=== PATIENT | male | born 1975 | race Caucasian/White ===

== ENCOUNTER 2019-09-10 16:16 | Inpatient (IN) | payer OTHER ==
[~2019-09-10] VITALS: Ht 177.8 cm; Wt 87.6 kg
[~2019-09-10 16:16] MED LIST: BENZ1TAB70 PO
[2019-09-10 19:20] LABS: BASOPHILS % (AUTO) 0.2 % (0.0-2.0); EOSINOPHILS % (AUTO) 3.7 % (1.0-6.0); HEMATOCRIT 39.4 % (41-53); HEMOGLOBIN 12.9 g/dL (13.5-17.5); LYMPHOCYTES # (AUTO) 2.6 K/uL (1.0-4.8); LYMPHOCYTES % (AUTO) 27.5 % (22.0-44.0); MEAN CORPUSCULAR HGB CONC 32.8 G/dL (31.0-37.0); MEAN CORPUSCULAR VOLUME 88 fL (80-100); MONOCYTES # (AUTO) 1.1 K/uL (0.1-1.0); NEUTROPHILS # (AUTO) 5.3 K/uL (1.8-7.7); NEUTROPHILS % (AUTO) 56.6 % (40.0-70.0); PLATELET COUNT (AUTO) 331 K/uL (150-450); RED BLOOD CELL COUNT(AUTO) 4.46 MIL/uL (4.50-5.90); RED CELL DISTRIBUTION WIDTH 12.8 % (11.5-14.5)
[2019-09-10 19:35] LABS: ANION GAP 11 mmol/L (8-16); CALCIUM, TOTAL 9.4 mg/dL (8.8-10.5); CARBON DIOXIDE 26 mmol/L (22-29); CHLORIDE 101 mmol/L (98-107); CREATININE 0.78 mg/dL (0.60-1.30); GLOMERULAR FILTR. RATE CALC > 60 mL/min (>60); GLUCOSE,RANDOM 134 mg/dL (70-110); POTASSIUM 4.1 mmol/L (3.5-5.1); SODIUM SERUM 138 mmol/L (136-145); UREA NITROGEN, BLOOD 17 mg/dL (7-18)
[2019-09-10 19:41] LABS: LACTIC ACID 0.9 mmol/L (0.4-2.0)
[2019-09-10 19:48] LABS: ALANINE AMINOTRANSFERASE 30 U/L (12-78); ALKALINE PHOSPHATASE 102 U/L (46-116); ASPARTATE AMINOTRANSFERASE 19 U/L (15-37); BILIRUBIN,TOTAL 0.4 mg/dL (0.1-1.0); LIPASE 90 U/L (73-393); TOTAL PROTEIN, SERUM 8.7 g/dL (6.4-8.2)
[2019-09-10 19:50] LABS: B-TYPE NATRIURETIC PEPTIDE < 5 pg/mL (0-100)
[2019-09-10] MEDS ORDERED: VANCOMYCIN HCL 1.5 GM in DEXTROSE 5%-WATER 250 ML IV ONE (21:00)
[2019-09-10] MEDS ORDERED: DEXTROSE 50%-WATER 25 GM/50 ML SYRINGE IVP PRN (21:00)
[2019-09-10] MEDS ORDERED: SODIUM CHLORIDE 0.9% 250 ML IV ONE (22:07)
[2019-09-10 22:12] VITALS: BP 136/85
[2019-09-10] MEDS: DOCUSATE SODIUM 100 MG CAPSULE PO SCH (23:55)
[2019-09-11] MEDS: ACETAMINOPHEN 325 MG TABLET PO PRN ×2 (00:20→12:46)
[2019-09-11] MEDS: HEPARIN SODIUM,PORCINE 5,000 UNITS/ML VIAL SQ SCH ×3 (00:21→16:03)
[2019-09-11 03:27] VITALS: BP 116/80
[2019-09-11] MEDS: VANCOMYCIN HCL 1.25 GM in DEXTROSE 5%-WATER 250 ML IV SCH ×2 (06:00→16:02)
[2019-09-11] MEDS: INSULIN LISPRO 100 UNITS/ML SQ PRN ×4 (06:00→20:17)
[2019-09-11 06:05] LABS: GLUCOMETER DEV NAME(LOC) 6S.1; GLUCOSE,POINT OF CARE 182 MG/DL (70-110)
[2019-09-11 07:18] LABS: APPEARANCE,URINE CLEAR (CLEAR); BILIRUBIN,URINE NEGATIVE (NEGATIVE); GLUCOSE, URINE (UA) NEGATIVE (NEGATIVE); KETONES,URINE NEGATIVE (NEGATIVE); LEUKOCYTE ESTERASE ,URINE NEGATIVE (NEGATIVE); NITRATE,URINE NEGATIVE (NEGATIVE); OCCULT BLOOD,URINE NEGATIVE (NEGATIVE); PH,URINE 6.5 (5.0-8.0); PROTEIN,URINE NEGATIVE (NEGATIVE); UROBILINOGEN,URINE 0.2 mg/dL (<=1.0)
[2019-09-11 07:29] LABS: BACTERIA,URINE None Seen /HPF (None Seen); RBC,URINE None Seen /HPF (0-2); SQUAMOUS EPITHELIAL CELL,UR Rare /LPF (None Seen); WBC,URINE None Seen /HPF (0-5)
[2019-09-11 08:31] LABS: ANION GAP 10 mmol/L (8-16); CALCIUM, TOTAL 8.8 mg/dL (8.8-10.5); CARBON DIOXIDE 27 mmol/L (22-29); CHLORIDE 103 mmol/L (98-107); CREATININE 0.72 mg/dL (0.60-1.30); GLOMERULAR FILTR. RATE CALC > 60 mL/min (>60); GLUCOSE,RANDOM 167 mg/dL (70-110); POTASSIUM 4.1 mmol/L (3.5-5.1); SODIUM SERUM 140 mmol/L (136-145); UREA NITROGEN, BLOOD 14 mg/dL (7-18)
[2019-09-11] MEDS: FAMOTIDINE 20 MG TABLET PO SCH (09:02)
[2019-09-11] MEDS: DOCUSATE SODIUM 100 MG CAPSULE PO SCH ×2 (09:02→20:14)
[2019-09-11] MEDS: ASPIRIN 81 MG CHEWABLE TABLET PO SCH (09:02)
[2019-09-11 09:08] VITALS: BP 130/85
[2019-09-11 11:39] VITALS: BP 121/79
[2019-09-11 17:03] VITALS: BP 111/78
[2019-09-11] MEDS ORDERED: SODIUM CHLORIDE 0.9% 500 ML IV ONE (17:14)
[2019-09-11 18:53] LABS: GLUCOMETER DEV NAME(LOC) 6N.2; GLUCOSE,POINT OF CARE 373 MG/DL (70-110)
[2019-09-11 18:53] LABS: GLUCOMETER DEV NAME(LOC) 6N.2; GLUCOSE,POINT OF CARE 197 MG/DL (70-110)
[2019-09-11 20:12] VITALS: BP 138/87
[2019-09-11 20:26] LABS: GLUCOMETER DEV NAME(LOC) 6S.1; GLUCOSE,POINT OF CARE 246 MG/DL (70-110)
[2019-09-11 23:05] VITALS: BP 128/90
[2019-09-12] MEDS: HEPARIN SODIUM,PORCINE 5,000 UNITS/ML VIAL SQ SCH ×4 (00:13→23:39)
[2019-09-12] MEDS: VANCOMYCIN HCL 1.25 GM in DEXTROSE 5%-WATER 250 ML IV SCH ×4 (00:14→23:39)
[2019-09-12 04:05] VITALS: BP 130/87
[2019-09-12] MEDS: INSULIN LISPRO 100 UNITS/ML SQ PRN ×4 (05:34→23:45)
[2019-09-12 05:48] LABS: GLUCOMETER DEV NAME(LOC) 6N.2; GLUCOSE,POINT OF CARE 189 MG/DL (70-110)
[2019-09-12 08:29] LABS: ANION GAP 8 mmol/L (8-16); CALCIUM, TOTAL 9.2 mg/dL (8.8-10.5); CARBON DIOXIDE 28 mmol/L (22-29); CHLORIDE 101 mmol/L (98-107); CREATININE 0.66 mg/dL (0.60-1.30); GLOMERULAR FILTR. RATE CALC > 60 mL/min (>60); GLUCOSE,RANDOM 205 mg/dL (70-110); POTASSIUM 4.1 mmol/L (3.5-5.1); SODIUM SERUM 137 mmol/L (136-145); UREA NITROGEN, BLOOD 13 mg/dL (7-18); VANCOMYCIN,RANDOM 11.7 mcg/mL (25.0-50.0)
[2019-09-12] MEDS: ASPIRIN 81 MG CHEWABLE TABLET PO SCH (08:35)
[2019-09-12] MEDS: MULTIVITAMINS WITH MINERALS, THERAPEUTIC TABLET PO SCH (08:35)
[2019-09-12] MEDS: DOCUSATE SODIUM 100 MG CAPSULE PO SCH ×2 (08:35→20:09)
[2019-09-12] MEDS: OxyCODONE HCL/ACETAMINOPHEN 5-325 MG TABLET PO PRN ×5 (08:35→23:39)
[2019-09-12] MEDS: FAMOTIDINE 20 MG TABLET PO SCH (08:35)
[2019-09-12 09:02] VITALS: BP 128/87
[2019-09-12 12:46] VITALS: BP 123/88
[2019-09-12 15:35] VITALS: BP 134/91
[2019-09-12 17:12] LABS: GLUCOMETER DEV NAME(LOC) 6N.2; GLUCOSE,POINT OF CARE 335 MG/DL (70-110)
[2019-09-12] MEDS: GlipiZIDE 5 MG TABLET PO SCH (17:13)
[2019-09-12 19:33] LABS: GLUCOMETER DEV NAME(LOC) 6S.1; GLUCOSE,POINT OF CARE 270 MG/DL (70-110)
[2019-09-12 20:50] VITALS: BP 136/94
[2019-09-13] LABS: GLUCOMETER DEV NAME(LOC) 6N.2; GLUCOSE,POINT OF CARE 192 MG/DL (70-110)
[2019-09-13 00:30] VITALS: BP 123/91
[2019-09-13] MEDS: OxyCODONE HCL/ACETAMINOPHEN 5-325 MG TABLET PO PRN ×3 (04:54→18:56)
[2019-09-13] MEDS: INSULIN LISPRO 100 UNITS/ML SQ PRN ×3 (05:06→17:21)
[2019-09-13] MEDS: GlipiZIDE 5 MG TABLET PO SCH (06:30)
[2019-09-13 06:32] LABS: GLUCOMETER DEV NAME(LOC) 6S.1; GLUCOSE,POINT OF CARE 177 MG/DL (70-110)
[2019-09-13 07:18] LABS: ANION GAP 6 mmol/L (8-16); CALCIUM, TOTAL 9.7 mg/dL (8.8-10.5); CARBON DIOXIDE 32 mmol/L (22-29); CHLORIDE 103 mmol/L (98-107); CREATININE 0.55 mg/dL (0.60-1.30); GLOMERULAR FILTR. RATE CALC > 60 mL/min (>60); GLUCOSE,RANDOM 170 mg/dL (70-110); POTASSIUM 4.5 mmol/L (3.5-5.1); SODIUM SERUM 141 mmol/L (136-145); UREA NITROGEN, BLOOD 12 mg/dL (7-18)
[2019-09-13] MEDS: MULTIVITAMINS WITH MINERALS, THERAPEUTIC TABLET PO SCH (08:12)
[2019-09-13] MEDS: FAMOTIDINE 20 MG TABLET PO SCH (08:12)
[2019-09-13] MEDS: DOCUSATE SODIUM 100 MG CAPSULE PO SCH (08:12)
[2019-09-13] MEDS: ASPIRIN 81 MG CHEWABLE TABLET PO SCH (08:12)
[2019-09-13] MEDS: VANCOMYCIN HCL 1.25 GM in DEXTROSE 5%-WATER 250 ML IV SCH ×2 (08:13→15:44)
[2019-09-13 08:22] LABS: BASOPHILS % (AUTO) 0.7 % (0.0-2.0); EOSINOPHILS % (AUTO) 6.2 % (1.0-6.0); HEMATOCRIT 40.5 % (41-53); HEMOGLOBIN 13.8 g/dL (13.5-17.5); LYMPHOCYTES # (AUTO) 1.3 K/uL (1.0-4.8); LYMPHOCYTES % (AUTO) 30.2 % (22.0-44.0); MEAN CORPUSCULAR HEMOGLOBIN 30.2 pg (26.0-34.0); MEAN CORPUSCULAR HGB CONC 34.1 G/dL (31.0-37.0); MEAN CORPUSCULAR VOLUME 89 fL (80-100); MONOCYTES # (AUTO) 0.6 K/uL (0.1-1.0); MONOCYTES % (AUTO) 13.4 % (2.0-9.0); NEUTROPHILS # (AUTO) 2.2 K/uL (1.8-7.7); NEUTROPHILS % (AUTO) 49.5 % (40.0-70.0); PLATELET COUNT (AUTO) 302 K/uL (150-450); RED BLOOD CELL COUNT(AUTO) 4.57 MIL/uL (4.50-5.90); RED CELL DISTRIBUTION WIDTH 12.8 % (11.5-14.5)
[2019-09-13 08:29] VITALS: BP 113/60
[2019-09-13] MEDS: HEPARIN SODIUM,PORCINE 5,000 UNITS/ML VIAL SQ SCH ×2 (08:50→15:44)
[2019-09-13 11:38] VITALS: BP 140/95
[2019-09-13 12:16] LABS: GLUCOMETER DEV NAME(LOC) AHU.; GLUCOSE,POINT OF CARE 192 MG/DL (70-110)
[2019-09-13 15:37] VITALS: BP 133/73
[2019-09-13] MEDS ORDERED: GlipiZIDE 5 MG TABLET PO SCH (17:30)
[2019-09-13 17:56] LABS: GLUCOMETER DEV NAME(LOC) 6S.1; GLUCOSE,POINT OF CARE 337 MG/DL (70-110)
[2019-09-13 17:56] LABS: GLUCOMETER DEV NAME(LOC) 6S.1; GLUCOSE,POINT OF CARE 279 MG/DL (70-110)
== END 2019-09-13 20:15 | DRG 813 ==
LOC: EMS 16:17 → 6N 20:52
PROVIDERS: ADMIT Internal Medicine; ATTEND Internal Medicine
DX: T81.9XXA Unspecified complication of procedure, initial encounter (principal); E11.621 Type 2 diabetes mellitus with foot ulcer; F03.90 Unspecified dementia, unspecified severity, without behavioral disturbance, psychotic disturbance, mood disturbance, and anxiety; L03.116 Cellulitis of left lower limb; Y83.8 Other surgical procedures as the cause of abnormal reaction of the patient, or of later complication, without mention of misadventure at the time of the procedure; Y92.89 Other specified places as the place of occurrence of the external cause; Z59.0 Homelessness; L97.529 Non-pressure chronic ulcer of other part of left foot with unspecified severity; Z20.828 Contact with and (suspected) exposure to other viral communicable diseases
CPT/HCPCS: 83605; 86140; 87040; 87081; 93005; G0480; J1644; J3370; J7040; J7050; J7060

== ENCOUNTER 2019-10-01 21:18 | Emergency (ER) | payer OTHER ==
[2019-10-01] MEDS ORDERED: INSLAN SQ (22:31)
[2019-10-01] MEDS ORDERED: INSU100V SQ (22:31)
[2019-10-01] MEDS ORDERED: VANC250C13 IV (22:31)
[2019-10-01 23:03] LABS: BASOPHILS % (AUTO) 0.6 % (0.0-2.0); EOSINOPHILS % (AUTO) 4.4 % (1.0-6.0); HEMATOCRIT 39.2 % (41-53); HEMOGLOBIN 13.1 g/dL (13.5-17.5); LYMPHOCYTES # (AUTO) 2.3 K/uL (1.0-4.8); LYMPHOCYTES % (AUTO) 37.5 % (22.0-44.0); MEAN CORPUSCULAR HEMOGLOBIN 29.3 pg (26.0-34.0); MEAN CORPUSCULAR HGB CONC 33.4 G/dL (31.0-37.0); MEAN CORPUSCULAR VOLUME 88 fL (80-100); MONOCYTES # (AUTO) 0.8 K/uL (0.1-1.0); MONOCYTES % (AUTO) 12.4 % (2.0-9.0); NEUTROPHILS # (AUTO) 2.8 K/uL (1.8-7.7); NEUTROPHILS % (AUTO) 45.1 % (40.0-70.0); PLATELET COUNT (AUTO) 294 K/uL (150-450); RED BLOOD CELL COUNT(AUTO) 4.47 MIL/uL (4.50-5.90); RED CELL DISTRIBUTION WIDTH 13.4 % (11.5-14.5)
[2019-10-01 23:05] LABS: ANION GAP 8 mmol/L (8-16); CALCIUM, TOTAL 8.9 mg/dL (8.8-10.5); CARBON DIOXIDE 28 mmol/L (22-29); CHLORIDE 100 mmol/L (98-107); CREATININE 0.75 mg/dL (0.60-1.30); GLOMERULAR FILTR. RATE CALC > 60 mL/min (>60); GLUCOSE,RANDOM 229 mg/dL (70-110); POTASSIUM 3.8 mmol/L (3.5-5.1); SODIUM SERUM 136 mmol/L (136-145); UREA NITROGEN, BLOOD 15 mg/dL (7-18)
[2019-10-01 23:11] LABS: ALANINE AMINOTRANSFERASE 47 U/L (12-78); ALBUMIN 3.6 g/dL (3.4-5.0); ALKALINE PHOSPHATASE 114 U/L (46-116); ASPARTATE AMINOTRANSFERASE 19 U/L (15-37); BILIRUBIN,TOTAL 0.3 mg/dL (0.1-1.0); TOTAL PROTEIN, SERUM 7.8 g/dL (6.4-8.2)
[2019-10-01 23:25] LABS: GLUCOSE,POINT OF CARE 235 MG/DL (70-110)
[2019-10-02 01:34] LABS: APPEARANCE,URINE CLEAR (CLEAR); BILIRUBIN,URINE NEGATIVE (NEGATIVE); GLUCOSE, URINE (UA) 100 mg/dL (NEGATIVE); KETONES,URINE NEGATIVE (NEGATIVE); LEUKOCYTE ESTERASE ,URINE NEGATIVE (NEGATIVE); NITRATE,URINE NEGATIVE (NEGATIVE); OCCULT BLOOD,URINE NEGATIVE (NEGATIVE); PH,URINE 6.5 (5.0-8.0); PROTEIN,URINE NEGATIVE (NEGATIVE); UROBILINOGEN,URINE 0.2 mg/dL (<=1.0)
[2019-10-02 01:41] LABS: BACTERIA,URINE None Seen /HPF (None Seen); RBC,URINE None Seen /HPF (0-2); SQUAMOUS EPITHELIAL CELL,UR Few /LPF (None Seen); WBC,URINE None Seen /HPF (0-5)
[2019-10-02 01:45] LABS: AMPHET/METH SCREEN,URINE NEGATIVE (NEGATIVE); BARBITURATE SCREEN, URINE NEGATIVE (NEGATIVE); BENZODIAZEPINES SCREEN,URINE NEGATIVE (NEGATIVE); CANNABINOID SCREEN,URINE NEGATIVE (NEGATIVE); COCAINE SCREEN,URINE NEGATIVE (NEGATIVE); METHADONE SCREEN, URINE NEGATIVE (NEGATIVE); OPIATE SCREEN,URINE NEGATIVE (NEGATIVE)
[2019-10-02 01:46] LABS: PHENCYCLIDINE SCREEN,URINE NEGATIVE (NEGATIVE)
[2019-10-02 05:39] VITALS: BP 128/76
== END 2019-10-02 06:37 | disposition home or self-care (01) ==
LOC: EMS 21:20
DX: N44.2 Benign cyst of testis (principal); N50.811 Right testicular pain; F69 Unspecified disorder of adult personality and behavior; E11.9 Type 2 diabetes mellitus without complications; Z79.4 Long term (current) use of insulin
CPT/HCPCS: 36415; 76870; 80053; 80307; 81001; 82962; 85025; 99284; G0480

== ENCOUNTER 2021-08-22 08:33 | Emergency (ER) | payer OTHER ==
[~2021-08-22] VITALS: Ht 175.3 cm; Wt 72.7 kg
[~2021-08-22 08:33] MED LIST changes: +INSLAN SQ; +INSU100V SQ; +VANC250C13 IV
[2021-08-22 09:09] VITALS: BP 104/64
[2021-08-22 11:09] LABS: APPEARANCE,URINE CLEAR (CLEAR); BILIRUBIN,URINE NEGATIVE (NEGATIVE); GLUCOSE, URINE (UA) 150-200 mg/dL (NEGATIVE); KETONES,URINE NEGATIVE (NEGATIVE); LEUKOCYTE ESTERASE ,URINE NEGATIVE (NEGATIVE); NITRATE,URINE NEGATIVE (NEGATIVE); OCCULT BLOOD,URINE NEGATIVE (NEGATIVE); PROTEIN,URINE NEGATIVE (NEGATIVE); SPECIFIC GRAVITIY, URINE 1.012 (1.003-1.030); UROBILINOGEN,URINE <=1.0 mg/dL (<=1.0)
[2021-08-22 11:11] LABS: BACTERIA,URINE None Seen /HPF (None Seen); RBC,URINE None Seen /HPF (0-2); WBC,URINE 0-2 /HPF (0-5)
[2021-08-22] MEDS ORDERED: IBUP-2070 PO (11:52)
[2021-08-22] MEDS ORDERED: ACET-66 PO (11:52)
== END 2021-08-22 11:52 | disposition home or self-care (01) ==
LOC: EMS 08:33
DX: N50.812 Left testicular pain (principal); E11.9 Type 2 diabetes mellitus without complications; M86.9 Osteomyelitis, unspecified; R51.9 Headache, unspecified; Z86.59 Personal history of other mental and behavioral disorders; Z86.19 Personal history of other infectious and parasitic diseases; Z89.422 Acquired absence of other left toe(s)
CPT/HCPCS: 76870; 81001; 99284; Z7502

== ENCOUNTER 2021-10-17 11:56 | Emergency (ER) | payer OTHER ==
[~2021-10-17] VITALS: Ht 180.3 cm; Wt 95.5 kg
[~2021-10-17 11:56] MED LIST changes: +ACET-66 PO; +IBUP-2070 PO; -VANC250C13 IV
[2021-10-17] MEDS ORDERED: DOXY-354 PO (15:03)
[2021-10-17 15:09] VITALS: BP 118/71
== END 2021-10-17 15:10 | disposition home or self-care (01) ==
LOC: EMS 11:58
DX: L02.413 Cutaneous abscess of right upper limb (principal); E11.9 Type 2 diabetes mellitus without complications; Z79.899 Other long term (current) drug therapy
CPT/HCPCS: 99283

== ENCOUNTER 2021-10-19 11:43 | Emergency (ER) | payer OTHER ==
[~2021-10-19] VITALS: Ht 175.3 cm; Wt 72.0 kg
[~2021-10-19 11:43] MED LIST changes: +DOXY-354 PO
[2021-10-19 12:02] VITALS: BP 98/60
[2021-10-19] MEDS ORDERED: DiphenhydrAMINE HCL 25 MG CAPSULE PO ONE (12:45)
[2021-10-19] MEDS ORDERED: ACETAMINOPHEN 325 MG TABLET PO ONE (12:45)
== END 2021-10-19 13:28 | disposition home or self-care (01) ==
LOC: EMS 11:44
DX: G89.29 Other chronic pain (principal); M25.562 Pain in left knee; L29.9 Pruritus, unspecified; E11.9 Type 2 diabetes mellitus without complications; Z79.899 Other long term (current) drug therapy; Z79.4 Long term (current) use of insulin
CPT/HCPCS: 99283

== ENCOUNTER 2021-10-24 07:46 | Emergency (ER) | payer OTHER ==
[~2021-10-24] VITALS: Ht 167.6 cm; Wt 100.0 kg
[2021-10-24] MEDS ORDERED: BENZTROPINE MESYLATE 1 MG/ML 2 ML VIAL IM ONE (09:45)
[2021-10-24] MEDS ORDERED: DiphenhydrAMINE HCL 25 MG CAPSULE PO ONE (09:45)
[2021-10-24 10:20] VITALS: BP 118/77
[2021-10-24] MEDS ORDERED: DIPH25TA51 PO (10:46)
== END 2021-10-24 10:56 | disposition home or self-care (01) ==
LOC: EMS 07:47
DX: G24.9 Dystonia, unspecified (principal); E11.9 Type 2 diabetes mellitus without complications; F20.9 Schizophrenia, unspecified; Z87.39 Personal history of other diseases of the musculoskeletal system and connective tissue; Z86.19 Personal history of other infectious and parasitic diseases; Z89.422 Acquired absence of other left toe(s); Z91.09 Other allergy status, other than to drugs and biological substances
CPT/HCPCS: 99283; 96372; J0515

== ENCOUNTER 2021-10-26 13:16 | Emergency (ER) | payer OTHER ==
[~2021-10-26] VITALS: Ht 177.8 cm; Wt 79.5 kg
[~2021-10-26 13:16] MED LIST changes: +DIPH25TA51 PO
[2021-10-26] MEDS ORDERED: ATOR40TA71 PO (14:03)
[2021-10-26] MEDS ORDERED: GLIP5TAB11 PO (14:03)
[2021-10-26] MEDS ORDERED: ASPI-1444 PO (14:03)
[2021-10-26] MEDS ORDERED: TAMS-13 PO (14:03)
[2021-10-26] MEDS ORDERED: METF-446 PO (14:03)
[2021-10-26] MEDS ORDERED: FURO20TA4 PO (14:03)
[2021-10-26] MEDS ORDERED: AMLO10TA55 PO (14:03)
[2021-10-26] MEDS ORDERED: METO25 PO (14:03)
[2021-10-26] MEDS ORDERED: FERR-89 PO (14:03)
[2021-10-26] MEDS ORDERED: RISP0.5T39 PO (14:03)
[2021-10-26] MEDS ORDERED: APIX5TAB PO (14:03)
[2021-10-26] MEDS ORDERED: LISI10TA24 PO (14:03)
[2021-10-26] MEDS ORDERED: BENZTROPINE MESYLATE 1 MG TABLET PO ONE (14:15)
[2021-10-26] MEDS ORDERED: DiphenhydrAMINE HCL 25 MG CAPSULE PO ONE (14:15)
[2021-10-26 15:27] VITALS: BP 114/65
== END 2021-10-26 18:43 | disposition home or self-care (01) ==
LOC: EMS 13:16
DX: G24.9 Dystonia, unspecified (principal); M79.18 Myalgia, other site; R45.1 Restlessness and agitation; E11.9 Type 2 diabetes mellitus without complications; G89.29 Other chronic pain; Z86.59 Personal history of other mental and behavioral disorders; Z86.19 Personal history of other infectious and parasitic diseases; Z87.39 Personal history of other diseases of the musculoskeletal system and connective tissue; Z89.422 Acquired absence of other left toe(s); Z91.09 Other allergy status, other than to drugs and biological substances
CPT/HCPCS: 99283

== ENCOUNTER 2021-11-02 08:15 | Emergency (ER) | payer OTHER ==
[~2021-11-02] VITALS: Ht 177.8 cm; Wt 79.5 kg
[~2021-11-02 08:15] MED LIST changes: +AMLO10TA55 PO; +APIX5TAB PO; +ASPI-1444 PO; +ATOR40TA71 PO; -BENZ1TAB70 PO; +FERR-89 PO; +FURO20TA4 PO; +GLIP5TAB11 PO; +LISI10TA24 PO; +METF-446 PO; +METO25 PO; +RISP0.5T39 PO; +TAMS-13 PO
[2021-11-02] MEDS ORDERED: INSLAN SQ (08:39)
[2021-11-02 08:56] LABS: BASOPHILS % (AUTO) 0.2 % (0.0-2.0); EOSINOPHILS % (AUTO) 2.9 % (1.0-6.0); HEMATOCRIT 33.6 % (41-53); HEMOGLOBIN 11.3 g/dL (13.5-17.5); LYMPHOCYTES # (AUTO) 1.2 K/uL (1.0-4.8); LYMPHOCYTES % (AUTO) 15.5 % (22.0-44.0); MEAN CORPUSCULAR HEMOGLOBIN 28.4 pg (26.0-34.0); MEAN CORPUSCULAR HGB CONC 33.6 G/dL (31.0-37.0); MEAN CORPUSCULAR VOLUME 85 fL (80-100); MONOCYTES # (AUTO) 0.6 K/uL (0.1-1.0); MONOCYTES % (AUTO) 7.2 % (2.0-9.0); NEUTROPHILS # (AUTO) 5.8 K/uL (1.8-7.7); NEUTROPHILS % (AUTO) 74.2 % (40.0-70.0); PLATELET COUNT (AUTO) 345 K/uL (150-450); RED BLOOD CELL COUNT(AUTO) 3.97 MIL/uL (4.50-5.90); RED CELL DISTRIBUTION WIDTH 17.5 % (11.5-14.5)
[2021-11-02] MEDS ORDERED: SODIUM CHLORIDE 0.9% 1,000 ML IV ONE (09:00)
[2021-11-02] MEDS ORDERED: ACETAMINOPHEN 500 MG TABLET PO ONE (09:00)
[2021-11-02 09:07] LABS: ANION GAP 11 mmol/L (8-16); CALCIUM, TOTAL 8.8 mg/dL (8.8-10.5); CARBON DIOXIDE 23 mmol/L (22-29); CHLORIDE 100 mmol/L (98-107); CREATININE 1.09 mg/dL (0.60-1.30); GLUCOSE,RANDOM 386 mg/dL (70-110); POTASSIUM 4.5 mmol/L (3.5-5.1); SODIUM SERUM 134 mmol/L (136-145); UREA NITROGEN, BLOOD 10 mg/dL (7-18)
[2021-11-02 09:08] LABS: GLOMERULAR FILTR. RATE CALC > 60 mL/min (>60)
[2021-11-02 09:13] LABS: ALANINE AMINOTRANSFERASE 38 U/L (12-78); ALBUMIN 3.7 g/dL (3.4-5.0); ALKALINE PHOSPHATASE 117 U/L (46-116); ASPARTATE AMINOTRANSFERASE 18 U/L (15-37); BILIRUBIN,TOTAL 0.3 mg/dL (0.1-1.0); PHOSPHORUS 3.2 mg/dL (2.5-4.9); TOTAL PROTEIN, SERUM 7.2 g/dL (6.4-8.2)
[2021-11-02] MEDS ORDERED: MAGNESIUM SULFATE 2 GM/WATER 50 ML IV ONE (09:30)
[2021-11-02] MEDS ORDERED: DOXYCYCLINE HYCLATE 100 MG TABLET PO ONE (09:30)
[2021-11-02] MEDS ORDERED: BACITRACIN 28 GM OINTMENT TP ONE (09:30)
[2021-11-02] MEDS ORDERED: DOXY-354 PO (10:28)
[2021-11-02 11:23] VITALS: BP 127/82
[2021-11-02 11:36] LABS: GLUCOSE,POINT OF CARE 228 MG/DL (70-110)
== END 2021-11-02 11:46 | disposition home or self-care (01) ==
LOC: EMS 08:16
DX: E83.42 Hypomagnesemia (principal); E11.65 Type 2 diabetes mellitus with hyperglycemia; R53.1 Weakness; L97.521 Non-pressure chronic ulcer of other part of left foot limited to breakdown of skin; Z88.8 Allergy status to other drugs, medicaments and biological substances; Z79.899 Other long term (current) drug therapy; Z79.4 Long term (current) use of insulin
CPT/HCPCS: 99285; 96365; 80053; 82962; 83735; 84100; 85025; 36415; J7030; J3475

== ENCOUNTER 2021-11-10 12:54 | Emergency (ER) | payer OTHER ==
[~2021-11-10] VITALS: Ht 177.8 cm; Wt 82.0 kg
[~2021-11-10 12:54] MED LIST changes: -ACET-66 PO; -DIPH25TA51 PO; -IBUP-2070 PO; -INSU100V SQ
[2021-11-10 13:06] VITALS: BP 147/90
[2021-11-13] MEDS ORDERED: TAMS-13 PO (13:26)
== END 2021-11-10 16:28 | disposition left against medical advice (07) ==
LOC: EMS 12:56
DX: Z53.21 Procedure and treatment not carried out due to patient leaving prior to being seen by health care provider (principal)
CPT/HCPCS: 82962

== ENCOUNTER 2021-11-18 07:17 | Emergency (ER) | payer OTHER ==
[~2021-11-18] VITALS: Ht 177.8 cm; Wt 91.9 kg
[~2021-11-18 07:17] MED LIST changes: -LISI10TA24 PO; -METO25 PO
[2021-11-18] MEDS ORDERED: HYDROGEN PEROXIDE 118 ML SOLUTION TP ONE (09:30)
[2021-11-18] MEDS ORDERED: BACITRACIN 28 GM OINTMENT TP ONE (09:30)
[2021-11-18] MEDS ORDERED: BACI28OI29 TP (09:40)
[2021-11-18 10:00] VITALS: BP 122/81
== END 2021-11-18 10:03 | disposition home or self-care (01) ==
LOC: EMS 07:17
DX: S91.302A Unspecified open wound, left foot, initial encounter (principal); E11.9 Type 2 diabetes mellitus without complications; Z86.19 Personal history of other infectious and parasitic diseases; Z86.59 Personal history of other mental and behavioral disorders; Z87.39 Personal history of other diseases of the musculoskeletal system and connective tissue; Z89.422 Acquired absence of other left toe(s); Z91.018 Allergy to other foods; X58.XXXA Exposure to other specified factors, initial encounter; Y93.89 Activity, other specified; Y92.89 Other specified places as the place of occurrence of the external cause; Y99.8 Other external cause status
CPT/HCPCS: 99282; Z7502; Z7610

== ENCOUNTER 2022-02-07 13:29 | Emergency (ER) | payer OTHER ==
[~2022-02-07] VITALS: Ht 177.8 cm; Wt 84.1 kg
[~2022-02-07 13:29] MED LIST changes: +BACI28OI29 TP; -DOXY-354 PO
[2022-02-07] MEDS ORDERED: SODIUM CHLORIDE 0.9% 1,000 ML IV ONE ×2 (14:30→14:45)
[2022-02-07] MEDS ORDERED: METOCLOPRAMIDE HCL 5 MG/ML 2 ML VIAL IVP ONE (14:45)
[2022-02-07] MEDS ORDERED: DiphenhydrAMINE HCL 50 MG/ML VIAL IVP ONE (14:45)
[2022-02-07 14:52] LABS: BASOPHILS % (AUTO) 1.2 % (0.0-2.0); HEMATOCRIT 37.6 % (41-53); HEMOGLOBIN 12.7 g/dL (13.5-17.5); LYMPHOCYTES # (AUTO) 1.7 K/uL (1.0-4.8); LYMPHOCYTES % (AUTO) 31.3 % (22.0-44.0); MEAN CORPUSCULAR HEMOGLOBIN 29.8 pg (26.0-34.0); MEAN CORPUSCULAR HGB CONC 33.9 G/dL (31.0-37.0); MEAN CORPUSCULAR VOLUME 88 fL (80-100); MONOCYTES # (AUTO) 0.4 K/uL (0.1-1.0); MONOCYTES % (AUTO) 6.9 % (2.0-9.0); NEUTROPHILS # (AUTO) 3.2 K/uL (1.8-7.7); NEUTROPHILS % (AUTO) 56.6 % (40.0-70.0); PLATELET COUNT (AUTO) 324 K/uL (150-450); RED BLOOD CELL COUNT(AUTO) 4.27 MIL/uL (4.50-5.90); RED CELL DISTRIBUTION WIDTH 13.5 % (11.5-14.5)
[2022-02-07 15:09] LABS: ANION GAP 6 mmol/L (8-16); CALCIUM, TOTAL 9.4 mg/dL (8.8-10.5); CARBON DIOXIDE 29 mmol/L (22-29); CHLORIDE 97 mmol/L (98-107); CREATININE 1.03 mg/dL (0.60-1.30); GLUCOSE,RANDOM 250 mg/dL (70-110); POTASSIUM 4.1 mmol/L (3.5-5.1); SODIUM SERUM 132 mmol/L (136-145); UREA NITROGEN, BLOOD 21 mg/dL (7-18)
[2022-02-07 15:11] LABS: GLOMERULAR FILTR. RATE CALC > 60 mL/min (>60)
[2022-02-07 15:16] LABS: ALANINE AMINOTRANSFERASE 41 U/L (12-78); ALKALINE PHOSPHATASE 142 U/L (46-116); ASPARTATE AMINOTRANSFERASE 19 U/L (15-37); BILIRUBIN,TOTAL 0.2 mg/dL (0.1-1.0); TOTAL PROTEIN, SERUM 8.4 g/dL (6.4-8.2)
[2022-02-07 16:26] LABS: ERYTHROCYTE SEDIMENTATION RATE 42 MM/HR (0-15)
[2022-02-07 17:18] VITALS: BP 140/92
== END 2022-02-07 17:23 | disposition home or self-care (01) ==
LOC: EMS 13:30
DX: R51.9 Headache, unspecified (principal); F20.9 Schizophrenia, unspecified; E11.9 Type 2 diabetes mellitus without complications
CPT/HCPCS: 99285; 96374; 70450; 96361; 96375; 80053; 85025; 85651; 36415; J1200; J2765; J7030

== ENCOUNTER 2022-03-02 08:56 | Emergency (ER) | payer OTHER ==
[~2022-03-02] VITALS: Ht 177.8 cm; Wt 100.0 kg
[2022-03-02 09:21] LABS: GLUCOSE,POINT OF CARE 351 MG/DL (70-110)
[2022-03-02 10:20] VITALS: BP 132/90
[2022-03-03] MEDS ORDERED: ACET-66 PO (15:17)
== END 2022-03-02 12:35 | disposition home or self-care (01) ==
LOC: EMS 09:20
DX: L97.529 Non-pressure chronic ulcer of other part of left foot with unspecified severity (principal); L97.519 Non-pressure chronic ulcer of other part of right foot with unspecified severity; E11.9 Type 2 diabetes mellitus without complications; M86.9 Osteomyelitis, unspecified; Z87.39 Personal history of other diseases of the musculoskeletal system and connective tissue; Z88.6 Allergy status to analgesic agent
CPT/HCPCS: 82962; 99284

== ENCOUNTER 2022-03-03 14:15 | Emergency (ER) | payer OTHER ==
[~2022-03-03] VITALS: Ht 172.7 cm; Wt 90.9 kg
[2022-03-03 14:56] VITALS: BP 141/89
[2022-03-03] MEDS ORDERED: IBUPROFEN 600 MG TABLET PO ONE (15:15)
[2022-03-03] MEDS ORDERED: ACET-66 PO (15:17)
[2022-03-03 15:19] LABS: APPEARANCE,URINE CLEAR (CLEAR); BILIRUBIN,URINE NEGATIVE (NEGATIVE); GLUCOSE, URINE (UA) >=1000 mg/dL (NEGATIVE); KETONES,URINE NEGATIVE (NEGATIVE); LEUKOCYTE ESTERASE ,URINE NEGATIVE (NEGATIVE); NITRATE,URINE NEGATIVE (NEGATIVE); OCCULT BLOOD,URINE NEGATIVE (NEGATIVE); PROTEIN,URINE NEGATIVE (NEGATIVE); SPECIFIC GRAVITIY, URINE 1.012 (1.003-1.030); UROBILINOGEN,URINE <=1.0 mg/dL (<=1.0)
[2022-03-03 15:33] LABS: BACTERIA,URINE None Seen /HPF (None Seen); RBC,URINE None Seen /HPF (0-2); SQUAMOUS EPITHELIAL CELL,UR Few /LPF (None Seen); WBC,URINE None Seen /HPF (0-5); YEAST,URINE None Seen /HPF (None Seen)
== END 2022-03-03 16:02 | disposition home or self-care (01) ==
LOC: EMS 14:21
DX: N50.811 Right testicular pain (principal); Z88.8 Allergy status to other drugs, medicaments and biological substances; Z79.82 Long term (current) use of aspirin; Z79.899 Other long term (current) drug therapy
CPT/HCPCS: 81001; 99283

== ENCOUNTER 2022-03-20 15:37 | Emergency (ER) | payer OTHER ==
[~2022-03-20] VITALS: Ht 170.2 cm; Wt 81.8 kg
[~2022-03-20 15:37] MED LIST changes: +AMLO-258 PO; -AMLO10TA55 PO; -BACI28OI29 TP; +CIPR500T10 PO; -FERR-89 PO; +FURO20 PO; -FURO20TA4 PO; -GLIP5TAB11 PO; -METF-446 PO; -RISP0.5T39 PO
[2022-03-20 16:15] LABS: BASOPHILS % (AUTO) 0.2 % (0.0-2.0); EOSINOPHILS % (AUTO) 4.5 % (1.0-6.0); HEMATOCRIT 37.1 % (41-53); HEMOGLOBIN 12.1 g/dL (13.5-17.5); LYMPHOCYTES # (AUTO) 1.5 K/uL (1.0-4.8); MEAN CORPUSCULAR HEMOGLOBIN 29.1 pg (26.0-34.0); MEAN CORPUSCULAR HGB CONC 32.7 G/dL (31.0-37.0); MEAN CORPUSCULAR VOLUME 89 fL (80-100); MONOCYTES # (AUTO) 0.6 K/uL (0.1-1.0); MONOCYTES % (AUTO) 11.5 % (2.0-9.0); NEUTROPHILS # (AUTO) 2.9 K/uL (1.8-7.7); NEUTROPHILS % (AUTO) 54.8 % (40.0-70.0); PLATELET COUNT (AUTO) 271 K/uL (150-450); RED BLOOD CELL COUNT(AUTO) 4.18 MIL/uL (4.50-5.90); RED CELL DISTRIBUTION WIDTH 12.9 % (11.5-14.5)
[2022-03-20 16:27] LABS: PROTHROMBIN TIME 10.2 SEC (9.4-11.6)
[2022-03-20 16:30] LABS: ALBUMIN 3.8 g/dL (3.4-5.0); BILIRUBIN,TOTAL 0.2 mg/dL (0.1-1.0); CALCIUM, TOTAL 9.9 mg/dL (8.8-10.5); CREATININE 1.48 mg/dL (0.60-1.30); POTASSIUM 4.5 mmol/L (3.5-5.1); TOTAL PROTEIN, SERUM 7.8 g/dL (6.4-8.2)
[2022-03-20] MEDS ORDERED: SODIUM CHLORIDE 0.9% 1,000 ML IV ONE (16:45)
[2022-03-20 18:23] VITALS: BP 147/98
[2022-03-20 18:46] LABS: GLUCOSE,POINT OF CARE 386 MG/DL (70-110)
== END 2022-03-20 19:08 | disposition home or self-care (01) ==
LOC: EMS 15:37
DX: R10.84 Generalized abdominal pain (principal); E11.65 Type 2 diabetes mellitus with hyperglycemia; E86.0 Dehydration; Z89.422 Acquired absence of other left toe(s); Z88.8 Allergy status to other drugs, medicaments and biological substances
CPT/HCPCS: 99284; 96360; 80053; 82962; 83690; 85025; 85610; 85730; 36415; J7030

== ENCOUNTER 2022-03-23 11:36 | Emergency (ER) | payer OTHER ==
[~2022-03-23] VITALS: Ht 177.8 cm; Wt 91.8 kg
[2022-03-23] MEDS ORDERED: SODIUM CHLORIDE 0.9% 1,000 ML IV ONE (15:30)
[2022-03-23] MEDS ORDERED: ACETAMINOPHEN 500 MG TABLET PO ONE (15:30)
[2022-03-23 16:06] LABS: ANION GAP 7 mmol/L (8-16); CALCIUM, TOTAL 9.6 mg/dL (8.8-10.5); CARBON DIOXIDE 26 mmol/L (22-29); CHLORIDE 93 mmol/L (98-107); CREATININE 1.26 mg/dL (0.60-1.30); POTASSIUM 4.2 mmol/L (3.5-5.1); SODIUM SERUM 126 mmol/L (136-145); UREA NITROGEN, BLOOD 22 mg/dL (7-18)
[2022-03-23 16:08] LABS: GLOMERULAR FILTR. RATE CALC > 60 mL/min (>60); GLUCOSE,RANDOM 608 mg/dL (70-110)
[2022-03-23] MEDS ORDERED: INSULIN REGULAR, HUMAN 100 UNITS/ML IVP ONE (16:15)
[2022-03-23 17:41] VITALS: BP 119/55
[2022-03-23 17:56] LABS: GLUCOMETER DEV NAME(LOC) ERT.5; GLUCOSE,POINT OF CARE 338 MG/DL (70-110)
== END 2022-03-23 18:07 | disposition home or self-care (01) ==
LOC: EMS 13:07
DX: E11.65 Type 2 diabetes mellitus with hyperglycemia (principal); E11.40 Type 2 diabetes mellitus with diabetic neuropathy, unspecified; N50.811 Right testicular pain
CPT/HCPCS: 99283; 96374; 96361; 80048; 82962; 36415; 82948; J7030; J1815

== ENCOUNTER 2022-03-25 08:50 | Emergency (ER) | payer OTHER ==
[~2022-03-25] VITALS: Ht 172.7 cm; Wt 72.7 kg
[2022-03-25] MEDS ORDERED: ACETAMINOPHEN 500 MG TABLET PO ONE (10:15)
[2022-03-25] MEDS ORDERED: INSULIN REGULAR, HUMAN 100 UNITS/ML SQ ONE (10:15)
[2022-03-25] MEDS ORDERED: KETOROLAC TROMETHAMINE 60 MG/2 ML VIAL IM ONE (10:15)
[2022-03-25 10:31] LABS: BASOPHILS % (AUTO) 0.5 % (0.0-2.0); EOSINOPHILS % (AUTO) 3.8 % (1.0-6.0); HEMATOCRIT 40.8 % (41-53); HEMOGLOBIN 13.6 g/dL (13.5-17.5); LYMPHOCYTES # (AUTO) 1.3 K/uL (1.0-4.8); MEAN CORPUSCULAR HEMOGLOBIN 29.4 pg (26.0-34.0); MEAN CORPUSCULAR HGB CONC 33.2 G/dL (31.0-37.0); MEAN CORPUSCULAR VOLUME 89 fL (80-100); MONOCYTES # (AUTO) 0.4 K/uL (0.1-1.0); MONOCYTES % (AUTO) 7.5 % (2.0-9.0); NEUTROPHILS # (AUTO) 3.8 K/uL (1.8-7.7); NEUTROPHILS % (AUTO) 65.2 % (40.0-70.0); PLATELET COUNT (AUTO) 319 K/uL (150-450); RED BLOOD CELL COUNT(AUTO) 4.61 MIL/uL (4.50-5.90); RED CELL DISTRIBUTION WIDTH 13.2 % (11.5-14.5)
[2022-03-25 10:42] LABS: ALANINE AMINOTRANSFERASE 37 U/L (12-78); ALBUMIN 4.3 g/dL (3.4-5.0); ALKALINE PHOSPHATASE 213 U/L (46-116); ANION GAP 5 mmol/L (8-16); ASPARTATE AMINOTRANSFERASE 14 U/L (15-37); BILIRUBIN,TOTAL 0.2 mg/dL (0.1-1.0); CALCIUM, TOTAL 9.7 mg/dL (8.8-10.5); CARBON DIOXIDE 29 mmol/L (22-29); CHLORIDE 96 mmol/L (98-107); CREATININE 1.15 mg/dL (0.60-1.30); POTASSIUM 4.4 mmol/L (3.5-5.1); SODIUM SERUM 130 mmol/L (136-145); TOTAL PROTEIN, SERUM 8.9 g/dL (6.4-8.2); UREA NITROGEN, BLOOD 17 mg/dL (7-18)
[2022-03-25 10:45] LABS: GLOMERULAR FILTR. RATE CALC > 60 mL/min (>60); GLUCOSE,RANDOM 475 mg/dL (70-110)
[2022-03-25 10:46] LABS: ACETONE,BLOOD NEGATIVE (NEGATIVE)
[2022-03-25] MEDS ORDERED: SYRI-590 SQ (11:41)
[2022-03-25] MEDS ORDERED: INSLAN SQ (11:41)
[2022-03-25] MEDS ORDERED: ACET-2080 PO (11:41)
[2022-03-25] MEDS ORDERED: LANC-893 TP (11:41)
[2022-03-25 12:00] VITALS: BP 151/87
== END 2022-03-25 12:23 | disposition home or self-care (01) ==
LOC: EMS 08:54
DX: E11.65 Type 2 diabetes mellitus with hyperglycemia (principal); F20.9 Schizophrenia, unspecified; N50.812 Left testicular pain; Z79.4 Long term (current) use of insulin; Z79.82 Long term (current) use of aspirin; Z79.899 Other long term (current) drug therapy
CPT/HCPCS: 99284; 80053; 82009; 82962; 85025; 36415; 96372; J1885; J1815

== ENCOUNTER 2022-03-27 06:11 | Emergency (ER) | payer OTHER ==
[~2022-03-27] VITALS: Ht 172.7 cm; Wt 72.7 kg
[~2022-03-27 06:11] MED LIST changes: +ACET-2080 PO; +LANC-893 TP; +SYRI-590 SQ
[2022-03-27] MEDS ORDERED: KETOROLAC TROMETHAMINE 60 MG/2 ML VIAL IM ONE (07:30)
[2022-03-27 08:30] VITALS: BP 125/85
[2022-03-28] MEDS ORDERED: DOXY-354 PO (19:55)
== END 2022-03-27 08:35 | disposition home or self-care (01) ==
LOC: EMS 06:11
DX: M54.9 Dorsalgia, unspecified (principal); G89.29 Other chronic pain; M54.50 Low back pain, unspecified; N50.811 Right testicular pain; Z89.422 Acquired absence of other left toe(s); Z91.018 Allergy to other foods
CPT/HCPCS: 99283; 82962; 96372; J1885

== ENCOUNTER 2022-03-28 14:54 | Emergency (ER) | payer OTHER ==
[~2022-03-28] VITALS: Ht 177.8 cm; Wt 77.3 kg
[2022-03-28 15:41] LABS: BASOPHILS % (AUTO) 0.5 % (0.0-2.0); EOSINOPHILS % (AUTO) 4.2 % (1.0-6.0); HEMATOCRIT 36.7 % (41-53); HEMOGLOBIN 12.4 g/dL (13.5-17.5); LYMPHOCYTES # (AUTO) 1.4 K/uL (1.0-4.8); LYMPHOCYTES % (AUTO) 24.2 % (22.0-44.0); MEAN CORPUSCULAR HEMOGLOBIN 29.5 pg (26.0-34.0); MEAN CORPUSCULAR HGB CONC 33.7 G/dL (31.0-37.0); MEAN CORPUSCULAR VOLUME 88 fL (80-100); MONOCYTES # (AUTO) 0.5 K/uL (0.1-1.0); MONOCYTES % (AUTO) 9.1 % (2.0-9.0); NEUTROPHILS # (AUTO) 3.6 K/uL (1.8-7.7); PLATELET COUNT (AUTO) 315 K/uL (150-450); RED CELL DISTRIBUTION WIDTH 12.9 % (11.5-14.5)
[2022-03-28 16:22] LABS: ANION GAP 5 mmol/L (8-16); CALCIUM, TOTAL 8.9 mg/dL (8.8-10.5); CARBON DIOXIDE 28 mmol/L (22-29); CHLORIDE 95 mmol/L (98-107); CREATININE 1.32 mg/dL (0.60-1.30); GLOMERULAR FILTR. RATE CALC 58 mL/min (>60); POTASSIUM 4.6 mmol/L (3.5-5.1); SODIUM SERUM 128 mmol/L (136-145); UREA NITROGEN, BLOOD 19 mg/dL (7-18)
[2022-03-28 16:27] LABS: ALANINE AMINOTRANSFERASE 33 U/L (12-78); ALBUMIN 3.6 g/dL (3.4-5.0); ALKALINE PHOSPHATASE 198 U/L (46-116); ASPARTATE AMINOTRANSFERASE 18 U/L (15-37); BILIRUBIN,TOTAL 0.2 mg/dL (0.1-1.0); TOTAL PROTEIN, SERUM 7.6 g/dL (6.4-8.2)
[2022-03-28 16:28] LABS: LIPASE 143 U/L (73-393)
[2022-03-28 16:29] LABS: GLUCOSE,RANDOM 512 mg/dL (70-110)
[2022-03-28] MEDS ORDERED: SODIUM CHLORIDE 0.9% 1,000 ML IV ONE (16:30)
[2022-03-28] MEDS ORDERED: KETOROLAC TROMETHAMINE 30 MG/ML VIAL IVP ONE (16:30)
[2022-03-28] MEDS ORDERED: ACETAMINOPHEN 500 MG TABLET PO ONE (16:30)
[2022-03-28] MEDS ORDERED: INSULIN REGULAR, HUMAN 100 UNITS/ML IVP ONE ×2 (16:45→18:15)
[2022-03-28 18:16] LABS: GLUCOMETER DEV NAME(LOC) ERT.5; GLUCOSE,POINT OF CARE 360 MG/DL (70-110)
[2022-03-28 19:02] LABS: APPEARANCE,URINE CLEAR (CLEAR); BILIRUBIN,URINE NEGATIVE (NEGATIVE); GLUCOSE, URINE (UA) >=1000 mg/dL (NEGATIVE); KETONES,URINE NEGATIVE (NEGATIVE); LEUKOCYTE ESTERASE ,URINE NEGATIVE (NEGATIVE); NITRATE,URINE NEGATIVE (NEGATIVE); OCCULT BLOOD,URINE NEGATIVE (NEGATIVE); PROTEIN,URINE NEGATIVE (NEGATIVE); SPECIFIC GRAVITIY, URINE 1.018 (1.003-1.030); UROBILINOGEN,URINE <=1.0 mg/dL (<=1.0)
[2022-03-28 19:09] LABS: AMPHET/METH SCREEN,URINE NEGATIVE (NEGATIVE); BARBITURATE SCREEN, URINE NEGATIVE (NEGATIVE); BENZODIAZEPINES SCREEN,URINE NEGATIVE (NEGATIVE); CANNABINOID SCREEN,URINE NEGATIVE (NEGATIVE); COCAINE SCREEN,URINE NEGATIVE (NEGATIVE); METHADONE SCREEN, URINE NEGATIVE (NEGATIVE); OPIATE SCREEN,URINE POSITIVE (NEGATIVE)
[2022-03-28 19:14] LABS: PHENCYCLIDINE SCREEN,URINE NEGATIVE (NEGATIVE)
[2022-03-28 19:27] LABS: BACTERIA,URINE None Seen /HPF (None Seen); RBC,URINE None Seen /HPF (0-2); SQUAMOUS EPITHELIAL CELL,UR Few /LPF (None Seen); TRANSITIONAL EPI CELLS,URINE None Seen /LPF (None Seen); WBC,URINE None Seen /HPF (0-5); YEAST,URINE Rare /HPF (None Seen)
[2022-03-28 19:31] LABS: GLUCOMETER DEV NAME(LOC) ERT.5; GLUCOSE,POINT OF CARE 321 MG/DL (70-110)
[2022-03-28] MEDS ORDERED: DOXY-354 PO (19:55)
[2022-03-28] MEDS ORDERED: DOXYCYCLINE HYCLATE 100 MG TABLET PO ONE (20:00)
[2022-03-28] MEDS ORDERED: CefTRIAXone SODIUM 250 MG in DEXTROSE 5%-WATER 50 ML IV ONE (20:00)
[2022-03-28 20:45] VITALS: BP 130/88
== END 2022-03-28 20:48 | disposition home or self-care (01) ==
LOC: EMS 14:54
DX: E11.65 Type 2 diabetes mellitus with hyperglycemia (principal); N45.2 Orchitis; Z87.39 Personal history of other diseases of the musculoskeletal system and connective tissue
CPT/HCPCS: 99284; 96365; 96375; 96361; 80053; 82962; 83690; 85025; 36415; 76870; 87491; 87591; 80307; 81001; G0480; J0696; J1815; J1885; J7060; 81003; 96374

== ENCOUNTER 2022-03-29 09:22 | Emergency (ER) | payer OTHER ==
[~2022-03-29] VITALS: Ht 172.7 cm; Wt 81.8 kg
[~2022-03-29 09:22] MED LIST changes: -CIPR500T10 PO; +DOXY-354 PO
[2022-03-29 09:49] VITALS: BP 140/84
[2022-03-29] MEDS: KETOROLAC TROMETHAMINE 60 MG/2 ML VIAL IM ONE (10:03)
[2022-03-29] MEDS: INSULIN REGULAR, HUMAN 100 UNITS/ML SQ ONE (10:04)
[2022-03-29] MEDS: SIMETHICONE 80 MG CHEWABLE TABLET CHEW ONE (10:16)
[2022-03-29 11:11] LABS: GLUCOMETER DEV NAME(LOC) ERT.5; GLUCOSE,POINT OF CARE 283 MG/DL (70-110)
[2022-04-06] MEDS ORDERED: DOXY100C5 PO (13:04)
[2022-04-06] MEDS ORDERED: ATOR40TA71 PO (13:04)
[2022-04-06] MEDS ORDERED: AMLO10TA55 PO (13:04)
[2022-04-06] MEDS ORDERED: FAMO20TA8 PO (13:04)
[2022-04-06] MEDS ORDERED: TYL3 PO (13:04)
[2022-04-06] MEDS ORDERED: MUPI15CR12 TP (13:04)
[2022-04-06] MEDS ORDERED: TAMS-13 PO (13:04)
[2022-04-06] MEDS ORDERED: ASPI-1444 PO (13:04)
[2022-04-06] MEDS ORDERED: INSLAN SQ (13:04)
[2022-04-06] MEDS ORDERED: FURO20TA4 PO (13:04)
[2022-04-06] MEDS ORDERED: DOXY-354 PO (16:21)
== END 2022-03-29 13:30 | disposition home or self-care (01) ==
LOC: EMS 09:31
DX: G90.09 Other idiopathic peripheral autonomic neuropathy (principal); E11.65 Type 2 diabetes mellitus with hyperglycemia; Z88.6 Allergy status to analgesic agent
CPT/HCPCS: 99284; 82962; 96372; J1815; J1885

== ENCOUNTER 2022-03-31 08:12 | Emergency (ER) | payer OTHER ==
[~2022-03-31] VITALS: Ht 172.7 cm; Wt 90.0 kg
[~2022-03-31 08:12] MED LIST changes: +CIPR500T10 PO
[2022-03-31 09:06] LABS: GLUCOMETER DEV NAME(LOC) ERT.5; GLUCOSE,POINT OF CARE 490 MG/DL (70-110)
[2022-03-31] MEDS ORDERED: SODIUM CHLORIDE 0.9% 1,000 ML IV ONE (09:15)
[2022-03-31 09:54] LABS: BASOPHILS % (AUTO) 0.4 % (0.0-2.0); EOSINOPHILS % (AUTO) 2.4 % (1.0-6.0); HEMATOCRIT 39.1 % (41-53); HEMOGLOBIN 12.8 g/dL (13.5-17.5); LYMPHOCYTES # (AUTO) 1.3 K/uL (1.0-4.8); LYMPHOCYTES % (AUTO) 17.8 % (22.0-44.0); MEAN CORPUSCULAR HGB CONC 32.7 G/dL (31.0-37.0); MEAN CORPUSCULAR VOLUME 89 fL (80-100); MONOCYTES # (AUTO) 0.5 K/uL (0.1-1.0); MONOCYTES % (AUTO) 7.4 % (2.0-9.0); NEUTROPHILS # (AUTO) 5.2 K/uL (1.8-7.7); PLATELET COUNT (AUTO) 297 K/uL (150-450); RED BLOOD CELL COUNT(AUTO) 4.42 MIL/uL (4.50-5.90); RED CELL DISTRIBUTION WIDTH 13.1 % (11.5-14.5)
[2022-03-31 10:10] LABS: ALANINE AMINOTRANSFERASE 38 U/L (12-78); ALKALINE PHOSPHATASE 210 U/L (46-116); ANION GAP 8 mmol/L (8-16); ASPARTATE AMINOTRANSFERASE 16 U/L (15-37); BILIRUBIN,TOTAL 0.2 mg/dL (0.1-1.0); CALCIUM, TOTAL 9.7 mg/dL (8.8-10.5); CARBON DIOXIDE 26 mmol/L (22-29); CHLORIDE 100 mmol/L (98-107); POTASSIUM 4.5 mmol/L (3.5-5.1); SODIUM SERUM 134 mmol/L (136-145); TOTAL PROTEIN, SERUM 8.6 g/dL (6.4-8.2); UREA NITROGEN, BLOOD 18 mg/dL (7-18)
[2022-03-31 10:11] LABS: GLOMERULAR FILTR. RATE CALC > 60 mL/min (>60); GLUCOSE,RANDOM 463 mg/dL (70-110)
[2022-03-31 10:34] LABS: APPEARANCE,URINE CLEAR (CLEAR); BILIRUBIN,URINE NEGATIVE (NEGATIVE); GLUCOSE, URINE (UA) >=1000 mg/dL (NEGATIVE); KETONES,URINE NEGATIVE (NEGATIVE); LEUKOCYTE ESTERASE ,URINE NEGATIVE (NEGATIVE); NITRATE,URINE NEGATIVE (NEGATIVE); OCCULT BLOOD,URINE NEGATIVE (NEGATIVE); PROTEIN,URINE NEGATIVE (NEGATIVE); SPECIFIC GRAVITIY, URINE 1.028 (1.003-1.030); UROBILINOGEN,URINE <=1.0 mg/dL (<=1.0)
[2022-03-31 11:07] LABS: RBC,URINE None Seen /HPF (0-2)
[2022-03-31 11:08] LABS: BACTERIA,URINE None Seen /HPF (None Seen); WBC,URINE None Seen /HPF (0-5)
[2022-03-31 11:42] VITALS: BP 132/84
[2022-03-31 11:52] LABS: GLUCOMETER DEV NAME(LOC) ERT.5; GLUCOSE,POINT OF CARE 275 MG/DL (70-110)
== END 2022-03-31 12:12 | disposition home or self-care (01) ==
LOC: EMS 08:19
DX: E11.65 Type 2 diabetes mellitus with hyperglycemia (principal); L97.429 Non-pressure chronic ulcer of left heel and midfoot with unspecified severity; N50.811 Right testicular pain; M86.9 Osteomyelitis, unspecified; Z91.018 Allergy to other foods; Z89.422 Acquired absence of other left toe(s)
CPT/HCPCS: 99284; 96360; 80053; 81001; 82962; 85025; 36415; 76870; 82948; J7030; 81003

== ENCOUNTER 2022-04-05 14:50 | Emergency (ER) | payer OTHER ==
[~2022-04-05] VITALS: Ht 180.3 cm; Wt 90.0 kg
[2022-04-05 14:53] VITALS: BP 135/78
[2022-04-06] MEDS ORDERED: TYL3 PO (13:04)
[2022-04-06] MEDS ORDERED: FURO20TA4 PO (13:04)
[2022-04-06] MEDS ORDERED: ASPI-1444 PO (13:04)
[2022-04-06] MEDS ORDERED: MUPI15CR12 TP (13:04)
[2022-04-06] MEDS ORDERED: FAMO20TA8 PO (13:04)
[2022-04-06] MEDS ORDERED: INSLAN SQ (13:04)
[2022-04-06] MEDS ORDERED: ATOR40TA71 PO (13:04)
[2022-04-06] MEDS ORDERED: DOXY100C5 PO (13:04)
[2022-04-06] MEDS ORDERED: AMLO10TA55 PO (13:04)
[2022-04-06] MEDS ORDERED: TAMS-13 PO (13:04)
[2022-04-06] MEDS ORDERED: DOXY-354 PO (16:21)
== END 2022-04-05 20:00 | disposition left against medical advice (07) ==
LOC: EMS 15:14
DX: N50.819 Testicular pain, unspecified (principal); R73.9 Hyperglycemia, unspecified; Z53.21 Procedure and treatment not carried out due to patient leaving prior to being seen by health care provider

== ENCOUNTER → 2022-04-06 | Emergency (ER) | payer OTHER ==
[~2022-04-06] VITALS: Ht 175.3 cm; Wt 84.0 kg
[~2022-04-06] MED LIST changes: -ACET-2080 PO; -AMLO-258 PO; +AMLO10TA55 PO; -APIX5TAB PO; -CIPR500T10 PO; +DOXY100C5 PO; +FAMO20TA8 PO; -FURO20 PO; +FURO20TA4 PO; +INSULIN REGULAR, HUMAN 100 UNITS/ML IVP ONE; -LANC-893 TP; +MUPI15CR12 TP; +PIPERACILLIN/TAZO 3.375 GM/D5W 50 ML IV ONE; +SODIUM CHLORIDE 0.9% 1,000 ML IV ONE; -SYRI-590 SQ; +TYL3 PO; +VANCOMYCIN 1GM/WATER(PEG/NADA) 200 ML IV ONE
[2022-04-06 14:12] LABS: BASOPHILS % (AUTO) 0.3 % (0.0-2.0); EOSINOPHILS % (AUTO) 2.4 % (1.0-6.0); HEMATOCRIT 34.7 % (41-53); HEMOGLOBIN 11.6 g/dL (13.5-17.5); LYMPHOCYTES # (AUTO) 1.4 K/uL (1.0-4.8); MEAN CORPUSCULAR HEMOGLOBIN 29.4 pg (26.0-34.0); MEAN CORPUSCULAR HGB CONC 33.5 G/dL (31.0-37.0); MEAN CORPUSCULAR VOLUME 88 fL (80-100); MONOCYTES # (AUTO) 0.7 K/uL (0.1-1.0); NEUTROPHILS # (AUTO) 5.1 K/uL (1.8-7.7); NEUTROPHILS % (AUTO) 69.3 % (40.0-70.0); PLATELET COUNT (AUTO) 288 K/uL (150-450); RED BLOOD CELL COUNT(AUTO) 3.96 MIL/uL (4.50-5.90); RED CELL DISTRIBUTION WIDTH 12.8 % (11.5-14.5)
[2022-04-06 14:50] LABS: ALBUMIN 3.7 g/dL (3.4-5.0); BILIRUBIN,TOTAL 0.2 mg/dL (0.1-1.0); CALCIUM, TOTAL 9.2 mg/dL (8.8-10.5); CREATININE 1.31 mg/dL (0.60-1.30); POTASSIUM 4.1 mmol/L (3.5-5.1)
[2022-04-06 15:26] LABS: GLUCOMETER DEV NAME(LOC) ERT.5; GLUCOSE,POINT OF CARE 364 MG/DL (70-110)
[2022-04-06 15:32] LABS: APPEARANCE,URINE CLEAR (CLEAR); BILIRUBIN,URINE NEGATIVE (NEGATIVE); GLUCOSE, URINE (UA) >=1000 mg/dL (NEGATIVE); KETONES,URINE NEGATIVE (NEGATIVE); LEUKOCYTE ESTERASE ,URINE NEGATIVE (NEGATIVE); NITRATE,URINE NEGATIVE (NEGATIVE); OCCULT BLOOD,URINE NEGATIVE (NEGATIVE); PH,URINE 6.5 (5.0-8.0); PROTEIN,URINE NEGATIVE (NEGATIVE); SPECIFIC GRAVITIY, URINE 1.008 (1.003-1.030); UROBILINOGEN,URINE <=1.0 mg/dL (<=1.0)
[2022-04-06 15:44] LABS: BACTERIA,URINE None Seen /HPF (None Seen); RBC,URINE None Seen /HPF (0-2); SQUAMOUS EPITHELIAL CELL,UR Rare /LPF (None Seen); WBC,URINE None Seen /HPF (0-5)
[2022-04-06 16:31] LABS: GLUCOMETER DEV NAME(LOC) ERT.5; GLUCOSE,POINT OF CARE 244 MG/DL (70-110)
[2022-04-06 17:00] VITALS: BP 135/74
== END | disposition home or self-care (01) ==
LOC: EMS 13:00
DX: E11.65 Type 2 diabetes mellitus with hyperglycemia (principal); F79 Unspecified intellectual disabilities; G89.29 Other chronic pain; N50.811 Right testicular pain; R62.50 Unspecified lack of expected normal physiological development in childhood
CPT/HCPCS: 99285; 96365; 96366; 96361; 96375; 80053; 81001; 82962; 85025; 87040; 36415; 73620; 76870; 96376; 96368; J1815; J2543; Q9967; J7030

== ENCOUNTER 2022-04-08 12:54 | Inpatient (IN) | payer OTHER ==
[~2022-04-08] VITALS: Ht 177.8 cm; Wt 112.0 kg
[~2022-04-08 12:54] MED LIST changes: -INSULIN REGULAR, HUMAN 100 UNITS/ML IVP ONE; -PIPERACILLIN/TAZO 3.375 GM/D5W 50 ML IV ONE; -SODIUM CHLORIDE 0.9% 1,000 ML IV ONE; -VANCOMYCIN 1GM/WATER(PEG/NADA) 200 ML IV ONE
[2022-04-08] MEDS ORDERED: SODIUM CHLORIDE 0.9% 1,000 ML IV ONE (14:15)
[2022-04-08] MEDS ORDERED: INSULIN REGULAR, HUMAN 100 UNITS/ML IVP ONE ×2 (14:15→14:45)
[2022-04-08 14:20] LABS: BASOPHILS % (AUTO) 0.4 % (0.0-2.0); EOSINOPHILS % (AUTO) 2.9 % (1.0-6.0); HEMOGLOBIN 11.3 g/dL (13.5-17.5); LYMPHOCYTES # (AUTO) 1.3 K/uL (1.0-4.8); LYMPHOCYTES % (AUTO) 19.9 % (22.0-44.0); MEAN CORPUSCULAR HEMOGLOBIN 29.2 pg (26.0-34.0); MEAN CORPUSCULAR HGB CONC 33.3 G/dL (31.0-37.0); MEAN CORPUSCULAR VOLUME 88 fL (80-100); MONOCYTES # (AUTO) 0.6 K/uL (0.1-1.0); MONOCYTES % (AUTO) 8.7 % (2.0-9.0); NEUTROPHILS # (AUTO) 4.3 K/uL (1.8-7.7); NEUTROPHILS % (AUTO) 68.1 % (40.0-70.0); PLATELET COUNT (AUTO) 288 K/uL (150-450); RED BLOOD CELL COUNT(AUTO) 3.88 MIL/uL (4.50-5.90); RED CELL DISTRIBUTION WIDTH 13.2 % (11.5-14.5)
[2022-04-08 14:35] LABS: ALANINE AMINOTRANSFERASE 33 U/L (12-78); ALBUMIN 3.6 g/dL (3.4-5.0); ALKALINE PHOSPHATASE 190 U/L (46-116); ANION GAP 9 mmol/L (8-16); ASPARTATE AMINOTRANSFERASE 21 U/L (15-37); BILIRUBIN,TOTAL 0.2 mg/dL (0.1-1.0); CALCIUM, TOTAL 9.3 mg/dL (8.8-10.5); CARBON DIOXIDE 26 mmol/L (22-29); CHLORIDE 99 mmol/L (98-107); CREATININE 1.05 mg/dL (0.60-1.30); POTASSIUM 4.8 mmol/L (3.5-5.1); SODIUM SERUM 134 mmol/L (136-145); TOTAL PROTEIN, SERUM 7.6 g/dL (6.4-8.2); UREA NITROGEN, BLOOD 14 mg/dL (7-18)
[2022-04-08 14:38] LABS: GLOMERULAR FILTR. RATE CALC > 60 mL/min (>60); GLUCOSE,RANDOM 549 mg/dL (70-110)
[2022-04-08] MEDS ORDERED: PIPERACILLIN/TAZO 3.375 GM/D5W 50 ML IV ONE ×2 (14:45→23:15)
[2022-04-08] MEDS ORDERED: VANCOMYCIN 1GM/WATER(PEG/NADA) 200 ML IV ONE ×2 (16:00→23:30)
[2022-04-08 16:46] LABS: LACTIC ACID 2.2 mmol/L (0.4-2.0)
[2022-04-08 17:06] LABS: GLUCOMETER DEV NAME(LOC) ERT.5; GLUCOSE,POINT OF CARE 286 MG/DL (70-110)
[2022-04-08 20:00] LABS: COVID AG,FIA SOURCE NASAL SWAB
[2022-04-08] MEDS ORDERED: DEXTROSE 50%-WATER 25 GM/50 ML SYRINGE IVP PRN (23:30)
[2022-04-09 01:24] VITALS: BP 131/79
[2022-04-09] MEDS ORDERED: SODIUM CHLORIDE 0.9% 500 ML IV ONE (01:37)
[2022-04-09] MEDS: PIPERACILLIN/TAZO 3.375 GM/D5W 50 ML IV SCH ×2 (05:04→11:01)
[2022-04-09] MEDS: INSULIN LISPRO 100 UNITS/ML SQ PRN ×4 (05:21→21:05)
[2022-04-09 05:31] VITALS: BP 111/79
[2022-04-09 07:28] VITALS: BP 120/77
[2022-04-09 08:05] LABS: GLUCOMETER DEV NAME(LOC) 6N.2B; GLUCOSE,POINT OF CARE 252 MG/DL (70-110)
[2022-04-09] MEDS: ATORVASTATIN CALCIUM 40 MG TABLET PO SCH (08:55)
[2022-04-09] MEDS: TAMSULOSIN HCL 0.4 MG CAPSULE PO SCH ×2 (08:56→20:57)
[2022-04-09] MEDS: ASPIRIN 81 MG DR TABLET PO SCH (08:56)
[2022-04-09] MEDS: FAMOTIDINE 20 MG TABLET PO SCH ×2 (08:56→20:57)
[2022-04-09] MEDS: AmLODIPine BESYLATE 10 MG TABLET PO SCH (08:56)
[2022-04-09] MEDS: FUROSEMIDE 20 MG TABLET PO SCH (08:56)
[2022-04-09] MEDS: INSULIN GLARGINE,HUM.REC.ANLOG 100 UNITS/ML SQ SCH ×2 (08:59→21:00)
[2022-04-09] MEDS: ACETAMINOPHEN 325 MG TABLET PO PRN ×2 (10:04→16:52)
[2022-04-09] MEDS: DOXYCYCLINE HYCLATE 100 MG TABLET PO SCH ×2 (10:04→20:57)
[2022-04-09 14:41] LABS: GLUCOMETER DEV NAME(LOC) 6N.2B; GLUCOSE,POINT OF CARE 244 MG/DL (70-110)
[2022-04-09 15:59] VITALS: BP 138/93
[2022-04-09 17:36] LABS: GLUCOMETER DEV NAME(LOC) 6N.2B; GLUCOSE,POINT OF CARE 302 MG/DL (70-110)
[2022-04-09 20:53] VITALS: BP 120/66
[2022-04-09 23:51] LABS: GLUCOMETER DEV NAME(LOC) 6N.2B; GLUCOSE,POINT OF CARE 206 MG/DL (70-110)
[2022-04-10 04:39] VITALS: BP 120/70
[2022-04-10] MEDS: INSULIN LISPRO 100 UNITS/ML SQ PRN ×2 (05:54→11:34)
[2022-04-10 07:06] LABS: GLUCOMETER DEV NAME(LOC) 6N.1; GLUCOSE,POINT OF CARE 168 MG/DL (70-110)
[2022-04-10 07:59] VITALS: BP 130/87
[2022-04-10] MEDS: DOXYCYCLINE HYCLATE 100 MG TABLET PO SCH (08:46)
[2022-04-10] MEDS: ASPIRIN 81 MG DR TABLET PO SCH (08:46)
[2022-04-10] MEDS: ATORVASTATIN CALCIUM 40 MG TABLET PO SCH (08:46)
[2022-04-10] MEDS: FAMOTIDINE 20 MG TABLET PO SCH (08:46)
[2022-04-10] MEDS: TAMSULOSIN HCL 0.4 MG CAPSULE PO SCH (08:46)
[2022-04-10] MEDS: AmLODIPine BESYLATE 10 MG TABLET PO SCH (08:46)
[2022-04-10] MEDS: FUROSEMIDE 20 MG TABLET PO SCH (08:46)
[2022-04-10] MEDS: ACETAMINOPHEN 325 MG TABLET PO PRN ×2 (08:47→14:33)
[2022-04-10] MEDS: INSULIN GLARGINE,HUM.REC.ANLOG 100 UNITS/ML SQ SCH (09:10)
[2022-04-10] MEDS ORDERED: ONDANSETRON HCL 4 MG/2 ML VIAL IVP PRN (12:45)
[2022-04-10] MEDS ORDERED: HYDROCODONE/ACETAMINOPHEN 5-325 MG TABLET PO PRN (12:45)
[2022-04-10] MEDS ORDERED: ALBUTEROL SULFATE 2.5 MG/0.5 ML NEB SOLUTION NEB PRN (12:45)
[2022-04-10] MEDS ORDERED: ZOLPIDEM TARTRATE 5 MG TABLET PO PRN (12:45)
[2022-04-10] MEDS ORDERED: IPRATROPIUM BROMIDE 0.5 MG/2.5 ML NEB SOLUTION NEB PRN (12:45)
[2022-04-10] MEDS ORDERED: ACETAMINOPHEN 325 MG TABLET PO PRN (12:45)
[2022-04-10] MEDS ORDERED: MAGNESIUM HYDROXIDE SUSPENSION 30 ML UDCUP PO PRN (12:45)
[2022-04-10] MEDS ORDERED: BISACODYL 10 MG RECTAL RECTAL SUPPOSITORY PR PRN (12:45)
[2022-04-10] MEDS ORDERED: MORPHINE SULFATE 2 MG/ML SYRINGE IVP PRN (12:45)
[2022-04-10] MEDS ORDERED: HEPARIN SODIUM,PORCINE 5,000 UNITS/ML VIAL SQ SCH (16:00)
[2022-04-10 17:06] LABS: GLUCOMETER DEV NAME(LOC) 6N.1; GLUCOSE,POINT OF CARE 292 MG/DL (70-110)
[2022-04-10] MEDS ORDERED: DOCUSATE SODIUM 100 MG CAPSULE PO SCH (21:00)
[2022-04-11] MEDS ORDERED: PANTOPRAZOLE SODIUM 40 MG/VIAL IVP SCH (09:00)
== END 2022-04-10 16:46 | DRG 380 ==
LOC: EMS 12:54 → 6N 04-09 00:05
PROVIDERS: ADMIT Hospitalist; ATTEND Hospitalist
DX: E11.621 Type 2 diabetes mellitus with foot ulcer (principal); L97.529 Non-pressure chronic ulcer of other part of left foot with unspecified severity; E11.65 Type 2 diabetes mellitus with hyperglycemia; N50.819 Testicular pain, unspecified; Z20.822 Contact with and (suspected) exposure to COVID-19; G89.29 Other chronic pain; Z79.4 Long term (current) use of insulin; Z89.422 Acquired absence of other left toe(s); Z91.14 Patient's other noncompliance with medication regimen; Z79.899 Other long term (current) drug therapy; Z79.82 Long term (current) use of aspirin
CPT/HCPCS: 80053; 82962; 83605; 85025; 99285; J1815; J2543; J7030; J7040; Q9967

== ENCOUNTER 2022-04-13 15:37 | Emergency (ER) | payer OTHER ==
[~2022-04-13] VITALS: Ht 175.3 cm; Wt 84.0 kg
[2022-04-13] MEDS ORDERED: PB/HYOSCY/ATR/SCOP/LIDO/MAALOX 55 ML BOTTLE PO ONE (16:00)
[2022-04-13] MEDS ORDERED: SODIUM CHLORIDE 0.9% 1,000 ML IV ONE (16:00)
[2022-04-13 17:13] LABS: BASOPHILS % (AUTO) 0.4 % (0.0-2.0); EOSINOPHILS % (AUTO) 4.5 % (1.0-6.0); HEMATOCRIT 36.2 % (41-53); HEMOGLOBIN 12.1 g/dL (13.5-17.5); LYMPHOCYTES # (AUTO) 1.6 K/uL (1.0-4.8); LYMPHOCYTES % (AUTO) 25.4 % (22.0-44.0); MEAN CORPUSCULAR HEMOGLOBIN 29.3 pg (26.0-34.0); MEAN CORPUSCULAR HGB CONC 33.4 G/dL (31.0-37.0); MEAN CORPUSCULAR VOLUME 88 fL (80-100); MONOCYTES # (AUTO) 0.6 K/uL (0.1-1.0); MONOCYTES % (AUTO) 10.3 % (2.0-9.0); NEUTROPHILS # (AUTO) 3.7 K/uL (1.8-7.7); NEUTROPHILS % (AUTO) 59.4 % (40.0-70.0); PLATELET COUNT (AUTO) 297 K/uL (150-450); RED BLOOD CELL COUNT(AUTO) 4.12 MIL/uL (4.50-5.90); RED CELL DISTRIBUTION WIDTH 13.1 % (11.5-14.5)
[2022-04-13 17:30] LABS: ALANINE AMINOTRANSFERASE 27 U/L (12-78); ALBUMIN 3.9 g/dL (3.4-5.0); ALKALINE PHOSPHATASE 195 U/L (46-116); ANION GAP 7 mmol/L (8-16); ASPARTATE AMINOTRANSFERASE 13 U/L (15-37); BILIRUBIN,TOTAL 0.2 mg/dL (0.1-1.0); CALCIUM, TOTAL 9.1 mg/dL (8.8-10.5); CARBON DIOXIDE 29 mmol/L (22-29); CHLORIDE 101 mmol/L (98-107); CREATININE 1.05 mg/dL (0.60-1.30); LIPASE 119 U/L (73-393); SODIUM SERUM 137 mmol/L (136-145); TOTAL PROTEIN, SERUM 8.4 g/dL (6.4-8.2); UREA NITROGEN, BLOOD 16 mg/dL (7-18)
[2022-04-13 17:31] LABS: GLOMERULAR FILTR. RATE CALC > 60 mL/min (>60); GLUCOSE,RANDOM 412 mg/dL (70-110)
[2022-04-13] MEDS ORDERED: INSULIN REGULAR, HUMAN 100 UNITS/ML IVP ONE (17:45)
[2022-04-13 18:51] VITALS: BP 133/88
== END 2022-04-13 19:24 | disposition home or self-care (01) ==
LOC: EMS 15:51
DX: E11.65 Type 2 diabetes mellitus with hyperglycemia (principal); R10.13 Epigastric pain; Z88.4 Allergy status to anesthetic agent
CPT/HCPCS: 99283; 96374; 96361; 80053; 82962; 83690; 85025; 36415; 82948; J1815; J7030

== ENCOUNTER 2022-04-16 07:48 | Emergency (ER) | payer OTHER ==
[~2022-04-16] VITALS: Ht 177.8 cm; Wt 77.3 kg
[2022-04-16 07:53] VITALS: BP 156/88
== END 2022-04-16 09:23 | disposition home or self-care (01) ==
LOC: EMS 08:03
DX: S91.332A Puncture wound without foreign body, left foot, initial encounter (principal); N50.811 Right testicular pain; E11.9 Type 2 diabetes mellitus without complications; Z88.5 Allergy status to narcotic agent; X58.XXXA Exposure to other specified factors, initial encounter; Y93.89 Activity, other specified; Y92.89 Other specified places as the place of occurrence of the external cause; Y99.8 Other external cause status
CPT/HCPCS: 82962; 99282

== ENCOUNTER 2022-04-18 09:18 | Emergency (ER) | payer OTHER ==
[~2022-04-18] VITALS: Ht 175.3 cm; Wt 85.0 kg
[2022-04-18] MEDS ORDERED: SODIUM CHLORIDE 0.9% 1,000 ML IV ONE (09:45)
[2022-04-18 10:07] LABS: APPEARANCE,URINE CLEAR (CLEAR); BILIRUBIN,URINE NEGATIVE (NEGATIVE); GLUCOSE, URINE (UA) >=1000 mg/dL (NEGATIVE); KETONES,URINE NEGATIVE (NEGATIVE); LEUKOCYTE ESTERASE ,URINE NEGATIVE (NEGATIVE); NITRATE,URINE NEGATIVE (NEGATIVE); OCCULT BLOOD,URINE NEGATIVE (NEGATIVE); PROTEIN,URINE NEGATIVE (NEGATIVE); SPECIFIC GRAVITIY, URINE 1.025 (1.003-1.030); UROBILINOGEN,URINE <=1.0 mg/dL (<=1.0)
[2022-04-18 10:22] LABS: ANION GAP 7 mmol/L (8-16); CALCIUM, TOTAL 8.7 mg/dL (8.8-10.5); CARBON DIOXIDE 28 mmol/L (22-29); CHLORIDE 100 mmol/L (98-107); CREATININE 1.06 mg/dL (0.60-1.30); POTASSIUM 5.1 mmol/L (3.5-5.1); SODIUM SERUM 135 mmol/L (136-145); UREA NITROGEN, BLOOD 16 mg/dL (7-18)
[2022-04-18 10:23] LABS: GLOMERULAR FILTR. RATE CALC > 60 mL/min (>60); GLUCOSE,RANDOM 437 mg/dL (70-110)
[2022-04-18 10:49] LABS: RBC,URINE 0-2 /HPF (0-2); WBC,URINE 0-2 /HPF (0-5)
[2022-04-18 10:50] LABS: BACTERIA,URINE None Seen /HPF (None Seen)
[2022-04-18 11:26] VITALS: BP 148/97
[2022-04-18] MEDS ORDERED: INSULIN REGULAR, HUMAN 100 UNITS/ML IVP ONE (11:30)
[2022-04-18 12:21] LABS: GLUCOSE,POINT OF CARE 215 MG/DL (70-110)
== END 2022-04-18 12:18 | disposition home or self-care (01) ==
LOC: EMS 09:22
DX: N50.811 Right testicular pain (principal); E11.65 Type 2 diabetes mellitus with hyperglycemia; Z79.4 Long term (current) use of insulin; Z89.422 Acquired absence of other left toe(s); Z91.018 Allergy to other foods
CPT/HCPCS: 99285; 96374; 96361; 80048; 81001; 82962; 36415; 76870; 87491; 87591; J1815; J7030

== ENCOUNTER 2022-04-20 07:44 | Emergency (ER) | payer OTHER ==
[~2022-04-20] VITALS: Ht 177.8 cm; Wt 90.0 kg
[~2022-04-20 07:44] MED LIST changes: -DOXY-354 PO; -DOXY100C5 PO
[2022-04-20] MEDS ORDERED: RISPC50 IM (07:51)
[2022-04-20] MEDS ORDERED: FREM225A SQ (07:51)
[2022-04-20] MEDS ORDERED: KETO10DR3 OU (07:51)
[2022-04-20] MEDS ORDERED: INSULIN REGULAR, HUMAN 100 UNITS/ML SQ ONE (08:15)
[2022-04-20 08:32] LABS: BASOPHILS % (AUTO) 0.4 % (0.0-2.0); EOSINOPHILS % (AUTO) 2.7 % (1.0-6.0); HEMATOCRIT 40.2 % (41-53); HEMOGLOBIN 13.4 g/dL (13.5-17.5); LYMPHOCYTES # (AUTO) 1.2 K/uL (1.0-4.8); LYMPHOCYTES % (AUTO) 21.3 % (22.0-44.0); MEAN CORPUSCULAR HGB CONC 33.2 G/dL (31.0-37.0); MEAN CORPUSCULAR VOLUME 87 fL (80-100); MONOCYTES # (AUTO) 0.6 K/uL (0.1-1.0); MONOCYTES % (AUTO) 9.6 % (2.0-9.0); NEUTROPHILS # (AUTO) 3.9 K/uL (1.8-7.7); PLATELET COUNT (AUTO) 291 K/uL (150-450); RED BLOOD CELL COUNT(AUTO) 4.61 MIL/uL (4.50-5.90); RED CELL DISTRIBUTION WIDTH 13.3 % (11.5-14.5)
[2022-04-20 08:41] LABS: HEMOGLOBIN A1C 11.3 % (3.8-5.6)
[2022-04-20 08:45] LABS: ALANINE AMINOTRANSFERASE 30 U/L (12-78); ALKALINE PHOSPHATASE 190 U/L (46-116); ANION GAP 14 mmol/L (8-16); ASPARTATE AMINOTRANSFERASE 21 U/L (15-37); BILIRUBIN,TOTAL 0.3 mg/dL (0.1-1.0); CALCIUM, TOTAL 9.7 mg/dL (8.8-10.5); CARBON DIOXIDE 25 mmol/L (22-29); CHLORIDE 96 mmol/L (98-107); CREATININE 1.06 mg/dL (0.60-1.30); POTASSIUM 4.1 mmol/L (3.5-5.1); SODIUM SERUM 135 mmol/L (136-145); TOTAL PROTEIN, SERUM 8.8 g/dL (6.4-8.2); UREA NITROGEN, BLOOD 10 mg/dL (7-18)
[2022-04-20 08:46] LABS: GLOMERULAR FILTR. RATE CALC > 60 mL/min (>60); GLUCOSE,RANDOM 410 mg/dL (70-110)
[2022-04-20 10:15] VITALS: BP 141/80
[2022-04-21] MEDS ORDERED: AMLO10TA55 PO (15:32)
[2022-04-21] MEDS ORDERED: INSLAN SQ (15:32)
[2022-04-21] MEDS ORDERED: LANC-893 TP (15:32)
== END 2022-04-20 10:32 | disposition home or self-care (01) ==
LOC: EMS 07:47
DX: E11.65 Type 2 diabetes mellitus with hyperglycemia (principal); N50.811 Right testicular pain; I10 Essential (primary) hypertension; Z89.422 Acquired absence of other left toe(s); Z98.890 Other specified postprocedural states
CPT/HCPCS: 99283; 80053; 82962; 83036; 85025; 36415; 96372; J1815

== ENCOUNTER 2022-04-21 14:21 | Emergency (ER) | payer OTHER ==
[~2022-04-21] VITALS: Ht 180.3 cm; Wt 100.0 kg
[~2022-04-21 14:21] MED LIST changes: +FREM225A SQ; +KETO10DR3 OU; +RISPC50 IM; -TYL3 PO
[2022-04-21 14:37] VITALS: BP 142/91
[2022-04-21] MEDS ORDERED: ACETAMINOPHEN 500 MG TABLET PO ONE (15:00)
[2022-04-21] MEDS ORDERED: KETOROLAC TROMETHAMINE 60 MG/2 ML VIAL IM ONE (15:00)
[2022-04-21] MEDS ORDERED: INSULIN REGULAR, HUMAN 100 UNITS/ML SQ ONE (15:00)
[2022-04-21] MEDS ORDERED: AMLO10TA55 PO (15:32)
[2022-04-21] MEDS ORDERED: INSLAN SQ (15:32)
[2022-04-21] MEDS ORDERED: LANC-893 TP (15:32)
== END 2022-04-21 16:07 | disposition home or self-care (01) ==
LOC: EMS 14:24
DX: E11.65 Type 2 diabetes mellitus with hyperglycemia (principal); N50.811 Right testicular pain; F20.9 Schizophrenia, unspecified; Z91.14 Patient's other noncompliance with medication regimen; Z89.422 Acquired absence of other left toe(s)
CPT/HCPCS: 99284; 96372; J1885; J1815

== ENCOUNTER 2022-04-23 11:53 | Emergency (ER) | payer OTHER ==
[~2022-04-23] VITALS: Ht 175.3 cm; Wt 77.3 kg
[~2022-04-23 11:53] MED LIST changes: +LANC-893 TP; -MUPI15CR12 TP
[2022-04-23] MEDS ORDERED: INSULIN REGULAR, HUMAN 100 UNITS/ML SQ ONE (14:45)
[2022-04-23 14:59] LABS: BASOPHILS % (AUTO) 0.6 % (0.0-2.0); EOSINOPHILS % (AUTO) 3.1 % (1.0-6.0); HEMATOCRIT 37.2 % (41-53); HEMOGLOBIN 12.2 g/dL (13.5-17.5); LYMPHOCYTES # (AUTO) 1.6 K/uL (1.0-4.8); LYMPHOCYTES % (AUTO) 26.8 % (22.0-44.0); MEAN CORPUSCULAR HEMOGLOBIN 28.8 pg (26.0-34.0); MEAN CORPUSCULAR HGB CONC 32.9 G/dL (31.0-37.0); MEAN CORPUSCULAR VOLUME 88 fL (80-100); MONOCYTES # (AUTO) 0.5 K/uL (0.1-1.0); MONOCYTES % (AUTO) 9.1 % (2.0-9.0); NEUTROPHILS # (AUTO) 3.7 K/uL (1.8-7.7); NEUTROPHILS % (AUTO) 60.4 % (40.0-70.0); PLATELET COUNT (AUTO) 286 K/uL (150-450); RED BLOOD CELL COUNT(AUTO) 4.24 MIL/uL (4.50-5.90); RED CELL DISTRIBUTION WIDTH 13.2 % (11.5-14.5)
[2022-04-23 15:26] LABS: ALANINE AMINOTRANSFERASE 26 U/L (12-78); ALBUMIN 3.7 g/dL (3.4-5.0); ALKALINE PHOSPHATASE 170 U/L (46-116); ANION GAP 8 mmol/L (8-16); ASPARTATE AMINOTRANSFERASE 31 U/L (15-37); BILIRUBIN,TOTAL 0.3 mg/dL (0.1-1.0); CALCIUM, TOTAL 9.2 mg/dL (8.8-10.5); CARBON DIOXIDE 25 mmol/L (22-29); CHLORIDE 97 mmol/L (98-107); CREATININE 0.91 mg/dL (0.60-1.30); POTASSIUM 4.4 mmol/L (3.5-5.1); SODIUM SERUM 130 mmol/L (136-145); TOTAL PROTEIN, SERUM 8.5 g/dL (6.4-8.2); UREA NITROGEN, BLOOD 11 mg/dL (7-18)
[2022-04-23 15:27] LABS: GLOMERULAR FILTR. RATE CALC > 60 mL/min (>60)
[2022-04-23 15:29] LABS: GLUCOSE,RANDOM 453 mg/dL (70-110)
[2022-04-23 16:39] VITALS: BP 132/14
== END 2022-04-23 16:41 | disposition home or self-care (01) ==
LOC: EMS 11:56
DX: E11.621 Type 2 diabetes mellitus with foot ulcer (principal); Z89.422 Acquired absence of other left toe(s); Z98.890 Other specified postprocedural states; Z91.14 Patient's other noncompliance with medication regimen; Z91.018 Allergy to other foods
CPT/HCPCS: 99283; 80053; 82962; 85025; 36415; 96372; J1815

== ENCOUNTER 2022-04-25 05:56 | Emergency (ER) | payer OTHER ==
[~2022-04-25] VITALS: Ht 177.8 cm; Wt 90.0 kg
[2022-04-25 06:15] VITALS: BP 124/76
[2022-04-25] MEDS ORDERED: IBUP-1554 PO (06:29)
[2022-04-25] MEDS ORDERED: MAG30ORA11 PO (06:29)
[2022-04-25] MEDS ORDERED: BENZ2TAB76 PO (06:29)
[2022-04-25] MEDS ORDERED: BACITRACIN 0.9 GM PACKET OINTMENT TP ONE (06:30)
[2022-04-25] MEDS ORDERED: IBUPROFEN 600 MG TABLET PO ONE (06:30)
[2022-04-25] MEDS ORDERED: BENZTROPINE MESYLATE 2 MG TABLET PO ONE (06:30)
[2022-04-25] MEDS ORDERED: MAG HYDROX/AL HYDROX/SIMETH ES 30 ML SUSPENSION UDCUP PO ONE (06:30)
== END 2022-04-25 06:45 | disposition home or self-care (01) ==
LOC: EMS 05:58
DX: E11.65 Type 2 diabetes mellitus with hyperglycemia (principal); F20.9 Schizophrenia, unspecified; G89.29 Other chronic pain; M79.18 Myalgia, other site; R07.89 Other chest pain; L97.509 Non-pressure chronic ulcer of other part of unspecified foot with unspecified severity; E11.9 Type 2 diabetes mellitus without complications; I10 Essential (primary) hypertension; M86.9 Osteomyelitis, unspecified; Z88.8 Allergy status to other drugs, medicaments and biological substances
CPT/HCPCS: 93005; 99284; Z7502; Z7610

== ENCOUNTER 2022-04-28 10:20 | Emergency (ER) | payer OTHER ==
[~2022-04-28] VITALS: Ht 177.8 cm; Wt 90.9 kg
[~2022-04-28 10:20] MED LIST changes: +BENZ2TAB76 PO; +IBUP-1554 PO; +MAG30ORA11 PO
[2022-04-28] MEDS ORDERED: SODIUM CHLORIDE 0.9% 1,000 ML IV ONE (10:30)
[2022-04-28] MEDS ORDERED: INSULIN REGULAR, HUMAN 100 UNITS/ML IVP ONE (10:45)
[2022-04-28 11:22] LABS: BASOPHILS % (AUTO) 0.5 % (0.0-2.0); EOSINOPHILS % (AUTO) 2.9 % (1.0-6.0); HEMATOCRIT 35.4 % (41-53); LYMPHOCYTES # (AUTO) 1.4 K/uL (1.0-4.8); MEAN CORPUSCULAR HEMOGLOBIN 29.6 pg (26.0-34.0); MEAN CORPUSCULAR HGB CONC 33.9 G/dL (31.0-37.0); MEAN CORPUSCULAR VOLUME 87 fL (80-100); MONOCYTES # (AUTO) 0.5 K/uL (0.1-1.0); MONOCYTES % (AUTO) 9.3 % (2.0-9.0); NEUTROPHILS # (AUTO) 3.2 K/uL (1.8-7.7); NEUTROPHILS % (AUTO) 60.3 % (40.0-70.0); PLATELET COUNT (AUTO) 313 K/uL (150-450); RED BLOOD CELL COUNT(AUTO) 4.05 MIL/uL (4.50-5.90); RED CELL DISTRIBUTION WIDTH 12.7 % (11.5-14.5)
[2022-04-28 11:44] LABS: B-TYPE NATRIURETIC PEPTIDE 13 pg/mL (0-100); PROTHROMBIN TIME 10.3 SEC (9.4-11.6)
[2022-04-28 11:45] LABS: ALANINE AMINOTRANSFERASE 27 U/L (12-78); ALBUMIN 3.7 g/dL (3.4-5.0); ALKALINE PHOSPHATASE 171 U/L (46-116); ANION GAP 5 mmol/L (8-16); ASPARTATE AMINOTRANSFERASE 14 U/L (15-37); BILIRUBIN,TOTAL 0.3 mg/dL (0.1-1.0); CALCIUM, TOTAL 8.9 mg/dL (8.8-10.5); CARBON DIOXIDE 27 mmol/L (22-29); CHLORIDE 95 mmol/L (98-107); CREATINE KINASE, TOTAL ONLY 93 U/L (39-308); CREATININE 1.13 mg/dL (0.60-1.30); POTASSIUM 4.7 mmol/L (3.5-5.1); SODIUM SERUM 127 mmol/L (136-145); TOTAL PROTEIN, SERUM 8.1 g/dL (6.4-8.2); UREA NITROGEN, BLOOD 19 mg/dL (7-18)
[2022-04-28 11:49] LABS: GLOMERULAR FILTR. RATE CALC > 60 mL/min (>60); GLUCOSE,RANDOM 586 mg/dL (70-110)
[2022-04-28 12:14] LABS: APPEARANCE,URINE CLEAR (CLEAR); BILIRUBIN,URINE NEGATIVE (NEGATIVE); GLUCOSE, URINE (UA) >=1000 mg/dL (NEGATIVE); KETONES,URINE NEGATIVE (NEGATIVE); LEUKOCYTE ESTERASE ,URINE NEGATIVE (NEGATIVE); NITRATE,URINE NEGATIVE (NEGATIVE); OCCULT BLOOD,URINE NEGATIVE (NEGATIVE); PH,URINE 5.5 (5.0-8.0); PROTEIN,URINE NEGATIVE (NEGATIVE); SPECIFIC GRAVITIY, URINE 1.021 (1.003-1.030); UROBILINOGEN,URINE <=1.0 mg/dL (<=1.0)
[2022-04-28 12:22] LABS: BACTERIA,URINE None Seen /HPF (None Seen); RBC,URINE None Seen /HPF (0-2); SQUAMOUS EPITHELIAL CELL,UR Few /LPF (None Seen); WBC,URINE None Seen /HPF (0-5)
[2022-04-28 13:51] VITALS: BP 108/69
== END 2022-04-28 14:24 | disposition home or self-care (01) ==
LOC: EMS 10:25
DX: E11.65 Type 2 diabetes mellitus with hyperglycemia (principal); E11.621 Type 2 diabetes mellitus with foot ulcer; I10 Essential (primary) hypertension; Z90.79 Acquired absence of other genital organ(s); Z88.5 Allergy status to narcotic agent
CPT/HCPCS: 99285; 96374; 71045; 96361; 80053; 81001; 82550; 83880; 84484; 85025; 85610; 85730; 36415; 93005; 82962; J1815

== ENCOUNTER 2022-05-22 07:14 | Emergency (ER) | payer OTHER ==
[~2022-05-22] VITALS: Ht 175.3 cm; Wt 77.3 kg
[2022-05-22 09:38] LABS: BASOPHILS % (AUTO) 0.6 % (0.0-2.0); EOSINOPHILS % (AUTO) 2.3 % (1.0-6.0); HEMATOCRIT 35.2 % (41-53); HEMOGLOBIN 11.8 g/dL (13.5-17.5); LYMPHOCYTES % (AUTO) 16.4 % (22.0-44.0); MEAN CORPUSCULAR HEMOGLOBIN 28.6 pg (26.0-34.0); MEAN CORPUSCULAR HGB CONC 33.4 G/dL (31.0-37.0); MEAN CORPUSCULAR VOLUME 86 fL (80-100); MONOCYTES # (AUTO) 0.5 K/uL (0.1-1.0); MONOCYTES % (AUTO) 7.8 % (2.0-9.0); NEUTROPHILS # (AUTO) 4.7 K/uL (1.8-7.7); NEUTROPHILS % (AUTO) 72.9 % (40.0-70.0); PLATELET COUNT (AUTO) 477 K/uL (150-450); RED BLOOD CELL COUNT(AUTO) 4.11 MIL/uL (4.50-5.90); RED CELL DISTRIBUTION WIDTH 13.7 % (11.5-14.5)
[2022-05-22 09:48] LABS: ANION GAP 4 mmol/L (8-16); CALCIUM, TOTAL 9.3 mg/dL (8.8-10.5); CARBON DIOXIDE 32 mmol/L (22-29); CHLORIDE 98 mmol/L (98-107); CREATININE 1.15 mg/dL (0.60-1.30); GLOMERULAR FILTR. RATE CALC > 60 mL/min (>60); GLUCOSE,RANDOM 288 mg/dL (70-110); POTASSIUM 4.5 mmol/L (3.5-5.1); SODIUM SERUM 134 mmol/L (136-145); UREA NITROGEN, BLOOD 10 mg/dL (7-18)
[2022-05-22 12:00] LABS: ALANINE AMINOTRANSFERASE 34 U/L (12-78); ALBUMIN 3.4 g/dL (3.4-5.0); ALKALINE PHOSPHATASE 147 U/L (46-116); ASPARTATE AMINOTRANSFERASE 29 U/L (15-37); BILIRUBIN,TOTAL 0.2 mg/dL (0.1-1.0); LIPASE 121 U/L (73-393); TOTAL PROTEIN, SERUM 9.3 g/dL (6.4-8.2)
[2022-05-22] MEDS ORDERED: SODIUM CHLORIDE 0.9% 1,000 ML IV ONE ×2 (12:00→14:15)
[2022-05-22] MEDS ORDERED: IOHEXOL 350 MG/ML 100 ML VIAL ONE (12:09)
[2022-05-22] MEDS ORDERED: SODIUM CHLORIDE 0.9% 100 ML ONE (12:09)
[2022-05-22 12:25] LABS: APPEARANCE,URINE CLEAR (CLEAR); BILIRUBIN,URINE NEGATIVE (NEGATIVE); GLUCOSE, URINE (UA) >=1000 mg/dL (NEGATIVE); KETONES,URINE TRACE mg/dL (NEGATIVE); LEUKOCYTE ESTERASE ,URINE TRACE (NEGATIVE); NITRATE,URINE NEGATIVE (NEGATIVE); OCCULT BLOOD,URINE NEGATIVE (NEGATIVE); PROTEIN,URINE 30-70 mg/dL (NEGATIVE); SPECIFIC GRAVITIY, URINE 1.019 (1.003-1.030); UROBILINOGEN,URINE <=1.0 mg/dL (<=1.0)
[2022-05-22 12:27] LABS: BACTERIA,URINE None Seen /HPF (None Seen); RBC,URINE 0-2 /HPF (0-2); WBC,URINE 0-2 /HPF (0-5)
[2022-05-22 13:16] LABS: COVID AG,FIA SOURCE NASAL SWAB
[2022-05-22 13:37] LABS: INFLUENZA TYPE A NEGATIVE FOR TYPE A (NEGATIVE); INFLUENZA TYPE B NEGATIVE FOR TYPE B (NEGATIVE)
[2022-05-22 15:24] VITALS: BP 154/101
[2022-05-22] MEDS ORDERED: ONDA-104 PO (15:34)
== END 2022-05-22 16:20 | disposition home or self-care (01) ==
LOC: EMS 07:14
DX: K52.9 Noninfective gastroenteritis and colitis, unspecified (principal); E11.65 Type 2 diabetes mellitus with hyperglycemia; I10 Essential (primary) hypertension; Z89.422 Acquired absence of other left toe(s); Z98.890 Other specified postprocedural states; Z88.8 Allergy status to other drugs, medicaments and biological substances; Z20.822 Contact with and (suspected) exposure to COVID-19
CPT/HCPCS: 99285; 74177; 96360; 96361; 87426; 80053; 81001; 82962; 83690; 85025; 87804; 36415; 93005; Q9967; J7030; J7050

== ENCOUNTER 2022-06-02 09:21 | Emergency (ER) | payer OTHER ==
[~2022-06-02] VITALS: Ht 180.3 cm; Wt 95.5 kg
[~2022-06-02 09:21] MED LIST changes: +ONDA-104 PO
[2022-06-02] MEDS ORDERED: SODIUM CHLORIDE 0.9% 1,000 ML IV ONE (09:45)
[2022-06-02 10:31] LABS: APPEARANCE,URINE CLEAR (CLEAR); BILIRUBIN,URINE NEGATIVE (NEGATIVE); GLUCOSE, URINE (UA) >=1000 mg/dL (NEGATIVE); KETONES,URINE NEGATIVE (NEGATIVE); LEUKOCYTE ESTERASE ,URINE NEGATIVE (NEGATIVE); NITRATE,URINE NEGATIVE (NEGATIVE); OCCULT BLOOD,URINE NEGATIVE (NEGATIVE); PROTEIN,URINE 30-70 mg/dL (NEGATIVE); SPECIFIC GRAVITIY, URINE 1.027 (1.003-1.030); UROBILINOGEN,URINE <=1.0 mg/dL (<=1.0)
[2022-06-02 10:51] LABS: BACTERIA,URINE None Seen /HPF (None Seen); RBC,URINE None Seen /HPF (0-2); WBC,URINE None Seen /HPF (0-5)
[2022-06-02 11:08] LABS: BASOPHILS % (AUTO) 0.6 % (0.0-2.0); EOSINOPHILS % (AUTO) 2.8 % (1.0-6.0); HEMATOCRIT 34.5 % (41-53); HEMOGLOBIN 11.6 g/dL (13.5-17.5); LYMPHOCYTES # (AUTO) 1.2 K/uL (1.0-4.8); LYMPHOCYTES % (AUTO) 20.7 % (22.0-44.0); MEAN CORPUSCULAR HEMOGLOBIN 28.6 pg (26.0-34.0); MEAN CORPUSCULAR HGB CONC 33.6 G/dL (31.0-37.0); MEAN CORPUSCULAR VOLUME 85 fL (80-100); MONOCYTES # (AUTO) 0.5 K/uL (0.1-1.0); MONOCYTES % (AUTO) 9.1 % (2.0-9.0); NEUTROPHILS # (AUTO) 3.9 K/uL (1.8-7.7); NEUTROPHILS % (AUTO) 66.8 % (40.0-70.0); PLATELET COUNT (AUTO) 320 K/uL (150-450); RED BLOOD CELL COUNT(AUTO) 4.05 MIL/uL (4.50-5.90); RED CELL DISTRIBUTION WIDTH 14.2 % (11.5-14.5)
[2022-06-02 11:11] LABS: ANION GAP 10 mmol/L (8-16); CALCIUM, TOTAL 9.3 mg/dL (8.8-10.5); CARBON DIOXIDE 27 mmol/L (22-29); CHLORIDE 98 mmol/L (98-107); CREATININE 0.93 mg/dL (0.60-1.30); GLOMERULAR FILTR. RATE CALC > 60 mL/min (>60); GLUCOSE,RANDOM 381 mg/dL (70-110); POTASSIUM 4.7 mmol/L (3.5-5.1); SODIUM SERUM 135 mmol/L (136-145); UREA NITROGEN, BLOOD 15 mg/dL (7-18)
[2022-06-02] MEDS ORDERED: INSULIN REGULAR, HUMAN 100 UNITS/ML IVP ONE (11:15)
[2022-06-02 11:23] LABS: ALANINE AMINOTRANSFERASE 37 U/L (12-78); ALBUMIN 3.6 g/dL (3.4-5.0); ALKALINE PHOSPHATASE 136 U/L (46-116); ASPARTATE AMINOTRANSFERASE 27 U/L (15-37); BILIRUBIN,TOTAL 0.3 mg/dL (0.1-1.0); LIPASE 72 U/L (73-393); TOTAL PROTEIN, SERUM 8.7 g/dL (6.4-8.2)
[2022-06-02] MEDS ORDERED: PERMETHRIN 5% 60 GM CREAM TP ONE (13:45)
[2022-06-02 14:47] VITALS: BP 126/44
== END 2022-06-02 14:48 | disposition home or self-care (01) ==
LOC: EMS 09:25
DX: G89.29 Other chronic pain (principal); R10.9 Unspecified abdominal pain; E11.65 Type 2 diabetes mellitus with hyperglycemia; F41.9 Anxiety disorder, unspecified; B86 Scabies; N50.811 Right testicular pain; I10 Essential (primary) hypertension; Z89.422 Acquired absence of other left toe(s); Z98.890 Other specified postprocedural states
CPT/HCPCS: 99283; 96374; 96361; 80053; 81001; 83690; 85025; 36415; J1815; 81003

== ENCOUNTER 2022-06-08 12:59 | Emergency (ER) | payer OTHER ==
[~2022-06-08] VITALS: Ht 172.7 cm; Wt 109.1 kg
[2022-06-08] MEDS ORDERED: FAMOTIDINE 40 MG in SODIUM CHLORIDE 0.9% 100 ML IV ONE (14:00)
[2022-06-08 14:25] LABS: BASOPHILS % (AUTO) 0.8 % (0.0-2.0); EOSINOPHILS % (AUTO) 4.3 % (1.0-6.0); HEMATOCRIT 33.6 % (41-53); HEMOGLOBIN 11.2 g/dL (13.5-17.5); LYMPHOCYTES # (AUTO) 1.7 K/uL (1.0-4.8); LYMPHOCYTES % (AUTO) 26.5 % (22.0-44.0); MEAN CORPUSCULAR HEMOGLOBIN 28.5 pg (26.0-34.0); MEAN CORPUSCULAR HGB CONC 33.4 G/dL (31.0-37.0); MEAN CORPUSCULAR VOLUME 85 fL (80-100); MONOCYTES # (AUTO) 0.7 K/uL (0.1-1.0); MONOCYTES % (AUTO) 10.9 % (2.0-9.0); NEUTROPHILS # (AUTO) 3.7 K/uL (1.8-7.7); NEUTROPHILS % (AUTO) 57.5 % (40.0-70.0); PLATELET COUNT (AUTO) 330 K/uL (150-450); RED BLOOD CELL COUNT(AUTO) 3.95 MIL/uL (4.50-5.90); RED CELL DISTRIBUTION WIDTH 14.4 % (11.5-14.5)
[2022-06-08 14:42] LABS: ANION GAP 6 mmol/L (8-16); CALCIUM, TOTAL 8.5 mg/dL (8.8-10.5); CARBON DIOXIDE 29 mmol/L (22-29); CHLORIDE 97 mmol/L (98-107); CREATININE 0.82 mg/dL (0.60-1.30); GLOMERULAR FILTR. RATE CALC > 60 mL/min (>60); GLUCOSE,RANDOM 326 mg/dL (70-110); POTASSIUM 3.9 mmol/L (3.5-5.1); SODIUM SERUM 132 mmol/L (136-145); UREA NITROGEN, BLOOD 10 mg/dL (7-18)
[2022-06-08 14:48] LABS: ALANINE AMINOTRANSFERASE 34 U/L (12-78); ALBUMIN 3.4 g/dL (3.4-5.0); ALKALINE PHOSPHATASE 125 U/L (46-116); ASPARTATE AMINOTRANSFERASE 25 U/L (15-37); BILIRUBIN,TOTAL 0.2 mg/dL (0.1-1.0); LIPASE 102 U/L (73-393); TOTAL PROTEIN, SERUM 7.3 g/dL (6.4-8.2)
[2022-06-08 14:56] VITALS: BP 144/80
[2022-06-08 15:42] LABS: APPEARANCE,URINE CLEAR (CLEAR); BILIRUBIN,URINE NEGATIVE (NEGATIVE); GLUCOSE, URINE (UA) >=1000 mg/dL (NEGATIVE); KETONES,URINE NEGATIVE (NEGATIVE); LEUKOCYTE ESTERASE ,URINE NEGATIVE (NEGATIVE); NITRATE,URINE NEGATIVE (NEGATIVE); OCCULT BLOOD,URINE NEGATIVE (NEGATIVE); PH,URINE 7.5 (5.0-8.0); PROTEIN,URINE NEGATIVE (NEGATIVE); SPECIFIC GRAVITIY, URINE 1.002 (1.003-1.030); UROBILINOGEN,URINE <=1.0 mg/dL (<=1.0)
[2022-06-08 16:09] LABS: BACTERIA,URINE None Seen /HPF (None Seen); RBC,URINE 0-2 /HPF (0-2); SQUAMOUS EPITHELIAL CELL,UR None Seen /LPF (None Seen); WBC,URINE 0-2 /HPF (0-5)
[2022-06-08] MEDS ORDERED: INSULIN REGULAR, HUMAN 100 UNITS/ML IVP ONE (16:30)
[2022-06-08] MEDS ORDERED: POLY17PO PO (16:54)
[2022-06-08] MEDS ORDERED: ACETAMINOPHEN 325 MG TABLET PO ONE (17:15)
== END 2022-06-08 17:09 | disposition home or self-care (01) ==
LOC: EMS 13:27
DX: K59.00 Constipation, unspecified (principal); E11.9 Type 2 diabetes mellitus without complications; I10 Essential (primary) hypertension; Z89.422 Acquired absence of other left toe(s); Z98.890 Other specified postprocedural states; Z91.018 Allergy to other foods
CPT/HCPCS: 99285; 96365; 96375; 80053; 81001; 82962; 83690; 85025; 36415; 74022; 93005; J3490; J1815; J7050

== ENCOUNTER 2022-06-11 11:15 | Emergency (ER) | payer OTHER ==
[~2022-06-11] VITALS: Ht 172.7 cm; Wt 109.0 kg
[~2022-06-11 11:15] MED LIST changes: -AMLO10TA55 PO; -ASPI-1444 PO; -ATOR40TA71 PO; -BENZ2TAB76 PO; -FAMO20TA8 PO; -FREM225A SQ; -FURO20TA4 PO; -IBUP-1554 PO; -INSLAN SQ; -KETO10DR3 OU; -LANC-893 TP; -MAG30ORA11 PO; -ONDA-104 PO; +POLY17PO PO; -RISPC50 IM; -TAMS-13 PO
[2022-06-11] MEDS ORDERED: AMLO10TA55 PO (11:56)
[2022-06-11] MEDS ORDERED: TAMS-13 PO (11:56)
[2022-06-11] MEDS ORDERED: GLIP10TA10 PO (11:56)
[2022-06-11] MEDS ORDERED: GABA-1181 PO (11:56)
[2022-06-11] MEDS ORDERED: RISPC50 IM (11:56)
[2022-06-11] MEDS ORDERED: LISI10TA24 PO (11:56)
[2022-06-11] MEDS ORDERED: INSLAN SQ (11:56)
[2022-06-11] MEDS ORDERED: METF-446 PO (11:56)
[2022-06-11] MEDS ORDERED: ATOR40TA71 PO (11:56)
[2022-06-11] MEDS ORDERED: ASPI-1444 PO (11:56)
[2022-06-11] MEDS ORDERED: KETOROLAC TROMETHAMINE 30 MG/ML VIAL IM ONE (12:00)
[2022-06-11 12:55] VITALS: BP 123/81
== END 2022-06-11 13:52 | disposition home or self-care (01) ==
LOC: EMS 11:32
DX: N50.811 Right testicular pain (principal); E11.65 Type 2 diabetes mellitus with hyperglycemia; F20.9 Schizophrenia, unspecified; I10 Essential (primary) hypertension; Z88.8 Allergy status to other drugs, medicaments and biological substances
CPT/HCPCS: 99283; 82948; 96372; J1885

== ENCOUNTER 2022-06-15 09:46 | Emergency (ER) | payer OTHER ==
[~2022-06-15] VITALS: Ht 177.8 cm; Wt 95.5 kg
[~2022-06-15 09:46] MED LIST changes: +AMLO10TA55 PO; +ASPI-1444 PO; +ATOR40TA71 PO; +GABA-1181 PO; +GLIP10TA10 PO; +INSLAN SQ; +LISI10TA24 PO; +METF-446 PO; +RISPC50 IM; +TAMS-13 PO
[2022-06-15 10:38] VITALS: BP 145/89
[2022-06-15 12:59] LABS: APPEARANCE,URINE CLEAR (CLEAR); BILIRUBIN,URINE NEGATIVE (NEGATIVE); GLUCOSE, URINE (UA) NEGATIVE (NEGATIVE); KETONES,URINE TRACE mg/dL (NEGATIVE); LEUKOCYTE ESTERASE ,URINE NEGATIVE (NEGATIVE); NITRATE,URINE NEGATIVE (NEGATIVE); OCCULT BLOOD,URINE NEGATIVE (NEGATIVE); PH,URINE 6.5 (5.0-8.0); PROTEIN,URINE TRACE mg/dL (NEGATIVE); SPECIFIC GRAVITIY, URINE 1.026 (1.003-1.030)
[2022-06-15] MEDS ORDERED: IBUPROFEN 600 MG TABLET PO ONE (13:30)
== END 2022-06-15 14:02 | disposition home or self-care (01) ==
LOC: EMS 09:49
DX: M54.50 Low back pain, unspecified (principal); F20.9 Schizophrenia, unspecified; E11.9 Type 2 diabetes mellitus without complications; I10 Essential (primary) hypertension; Z89.422 Acquired absence of other left toe(s); Z98.890 Other specified postprocedural states; Z88.8 Allergy status to other drugs, medicaments and biological substances
CPT/HCPCS: 81003; 99283

== ENCOUNTER 2022-06-22 09:33 | Emergency (ER) | payer OTHER ==
[~2022-06-22] VITALS: Ht 177.8 cm; Wt 95.5 kg
[2022-06-22] MEDS ORDERED: LID5O TP (09:41)
[2022-06-22] MEDS ORDERED: LISI10TA24 PO (09:41)
[2022-06-22] MEDS ORDERED: GLIP5TAB11 PO (09:41)
[2022-06-22] MEDS ORDERED: FAMO20TA8 PO (09:41)
[2022-06-22] MEDS ORDERED: POLY17PO52 PO (09:41)
[2022-06-22] MEDS ORDERED: METF-446 PO (09:41)
[2022-06-22] MEDS ORDERED: BISA10SU11 PR (09:41)
[2022-06-22] MEDS ORDERED: RISPC50 IM (09:41)
[2022-06-22] MEDS ORDERED: INSLAN SQ (09:41)
[2022-06-22] MEDS ORDERED: NAPR-1025 PO (09:41)
[2022-06-22] MEDS ORDERED: AMLO10TA55 PO (09:41)
[2022-06-22 10:21] LABS: APPEARANCE,URINE CLEAR (CLEAR); BILIRUBIN,URINE NEGATIVE (NEGATIVE); GLUCOSE, URINE (UA) 150-200 mg/dL (NEGATIVE); KETONES,URINE NEGATIVE (NEGATIVE); LEUKOCYTE ESTERASE ,URINE NEGATIVE (NEGATIVE); NITRATE,URINE NEGATIVE (NEGATIVE); OCCULT BLOOD,URINE NEGATIVE (NEGATIVE); PH,URINE 6.5 (5.0-8.0); PROTEIN,URINE TRACE mg/dL (NEGATIVE); SPECIFIC GRAVITIY, URINE 1.009 (1.003-1.030); UROBILINOGEN,URINE <=1.0 mg/dL (<=1.0)
[2022-06-22 10:27] LABS: AMPHET/METH SCREEN,URINE NEGATIVE (NEGATIVE); BARBITURATE SCREEN, URINE NEGATIVE (NEGATIVE); BENZODIAZEPINES SCREEN,URINE NEGATIVE (NEGATIVE); CANNABINOID SCREEN,URINE NEGATIVE (NEGATIVE); COCAINE SCREEN,URINE NEGATIVE (NEGATIVE); METHADONE SCREEN, URINE NEGATIVE (NEGATIVE); OPIATE SCREEN,URINE NEGATIVE (NEGATIVE); PHENCYCLIDINE SCREEN,URINE NEGATIVE (NEGATIVE)
[2022-06-22 10:28] LABS: BACTERIA,URINE None Seen /HPF (None Seen); RBC,URINE None Seen /HPF (0-2); SQUAMOUS EPITHELIAL CELL,UR Few /LPF (None Seen); WBC,URINE None Seen /HPF (0-5)
[2022-06-22 11:09] LABS: BASOPHILS % (AUTO) 0.7 % (0.0-2.0); EOSINOPHILS % (AUTO) 4.4 % (1.0-6.0); HEMATOCRIT 34.5 % (41-53); HEMOGLOBIN 11.7 g/dL (13.5-17.5); LYMPHOCYTES # (AUTO) 1.4 K/uL (1.0-4.8); LYMPHOCYTES % (AUTO) 26.7 % (22.0-44.0); MEAN CORPUSCULAR HEMOGLOBIN 28.8 pg (26.0-34.0); MEAN CORPUSCULAR HGB CONC 33.9 G/dL (31.0-37.0); MEAN CORPUSCULAR VOLUME 85 fL (80-100); MONOCYTES # (AUTO) 0.5 K/uL (0.1-1.0); MONOCYTES % (AUTO) 9.9 % (2.0-9.0); NEUTROPHILS % (AUTO) 58.3 % (40.0-70.0); PLATELET COUNT (AUTO) 316 K/uL (150-450); RED BLOOD CELL COUNT(AUTO) 4.07 MIL/uL (4.50-5.90); RED CELL DISTRIBUTION WIDTH 14.5 % (11.5-14.5)
[2022-06-22] MEDS ORDERED: ACETAMINOPHEN 500 MG TABLET PO ONE (11:15)
[2022-06-22] MEDS ORDERED: KETOROLAC TROMETHAMINE 60 MG/2 ML VIAL IM ONE (11:15)
[2022-06-22 11:29] LABS: ANION GAP 9 mmol/L (8-16); CALCIUM, TOTAL 9.1 mg/dL (8.8-10.5); CARBON DIOXIDE 25 mmol/L (22-29); CHLORIDE 100 mmol/L (98-107); CREATININE 0.86 mg/dL (0.60-1.30); GLOMERULAR FILTR. RATE CALC > 60 mL/min (>60); GLUCOSE,RANDOM 338 mg/dL (70-110); POTASSIUM 4.7 mmol/L (3.5-5.1); SODIUM SERUM 134 mmol/L (136-145); UREA NITROGEN, BLOOD 10 mg/dL (7-18)
[2022-06-22 11:36] LABS: ALANINE AMINOTRANSFERASE 28 U/L (12-78); ALBUMIN 3.7 g/dL (3.4-5.0); ALKALINE PHOSPHATASE 115 U/L (46-116); ASPARTATE AMINOTRANSFERASE 29 U/L (15-37); BILIRUBIN,TOTAL 0.2 mg/dL (0.1-1.0); LIPASE 125 U/L (73-393); TOTAL PROTEIN, SERUM 7.8 g/dL (6.4-8.2)
[2022-06-22] MEDS ORDERED: INSULIN REGULAR, HUMAN 100 UNITS/ML SQ ONE (11:45)
[2022-06-22 12:38] LABS: ACETONE,BLOOD NEGATIVE (NEGATIVE)
[2022-06-22 13:16] VITALS: BP 116/70
== END 2022-06-22 13:23 | disposition home or self-care (01) ==
LOC: EMS 09:33
DX: F20.9 Schizophrenia, unspecified (principal); N50.812 Left testicular pain; R53.1 Weakness; G89.29 Other chronic pain; M79.18 Myalgia, other site; F99 Mental disorder, not otherwise specified; E11.65 Type 2 diabetes mellitus with hyperglycemia; I10 Essential (primary) hypertension; Z98.890 Other specified postprocedural states; Z89.422 Acquired absence of other left toe(s); Z91.018 Allergy to other foods
CPT/HCPCS: 99285; 80053; 82009; 82962; 83690; 84484; 85025; 36415; 76870; 96372; 81001; 80307 ×2; G0480; J1815; J1885

== ENCOUNTER 2022-06-23 09:50 | Emergency (ER) | payer OTHER ==
[~2022-06-23] VITALS: Ht 175.3 cm; Wt 84.1 kg
[~2022-06-23 09:50] MED LIST changes: -ASPI-1444 PO; -ATOR40TA71 PO; +BISA10SU11 PR; +FAMO20TA8 PO; -GABA-1181 PO; -GLIP10TA10 PO; +GLIP5TAB11 PO; +LID5O TP; +NAPR-1025 PO; -POLY17PO PO; +POLY17PO52 PO; -TAMS-13 PO
[2022-06-23] MEDS ORDERED: KETOROLAC TROMETHAMINE 30 MG/ML VIAL IM ONE (10:30)
[2022-06-23] MEDS ORDERED: HYDROCODONE/ACETAMINOPHEN 5-325 MG TABLET PO ONE (10:30)
[2022-06-23] MEDS ORDERED: SODIUM CHLORIDE 0.9% 1,000 ML IV ONE (10:30)
[2022-06-23 11:02] LABS: BASOPHILS % (AUTO) 0.4 % (0.0-2.0); HEMATOCRIT 33.6 % (41-53); HEMOGLOBIN 11.2 g/dL (13.5-17.5); LYMPHOCYTES # (AUTO) 1.3 K/uL (1.0-4.8); LYMPHOCYTES % (AUTO) 27.2 % (22.0-44.0); MEAN CORPUSCULAR HEMOGLOBIN 28.3 pg (26.0-34.0); MEAN CORPUSCULAR HGB CONC 33.5 G/dL (31.0-37.0); MEAN CORPUSCULAR VOLUME 85 fL (80-100); MONOCYTES # (AUTO) 0.5 K/uL (0.1-1.0); MONOCYTES % (AUTO) 9.6 % (2.0-9.0); NEUTROPHILS # (AUTO) 2.8 K/uL (1.8-7.7); NEUTROPHILS % (AUTO) 58.8 % (40.0-70.0); PLATELET COUNT (AUTO) 283 K/uL (150-450); RED BLOOD CELL COUNT(AUTO) 3.97 MIL/uL (4.50-5.90); RED CELL DISTRIBUTION WIDTH 14.6 % (11.5-14.5)
[2022-06-23 11:14] LABS: ANION GAP 9 mmol/L (8-16); CARBON DIOXIDE 25 mmol/L (22-29); CHLORIDE 101 mmol/L (98-107); GLOMERULAR FILTR. RATE CALC > 60 mL/min (>60); GLUCOSE,RANDOM 303 mg/dL (70-110); POTASSIUM 4.6 mmol/L (3.5-5.1); SODIUM SERUM 135 mmol/L (136-145); UREA NITROGEN, BLOOD 10 mg/dL (7-18)
[2022-06-23 11:21] LABS: ALANINE AMINOTRANSFERASE 27 U/L (12-78); ALBUMIN 3.5 g/dL (3.4-5.0); ALKALINE PHOSPHATASE 116 U/L (46-116); ASPARTATE AMINOTRANSFERASE 18 U/L (15-37); BILIRUBIN,TOTAL 0.2 mg/dL (0.1-1.0); TOTAL PROTEIN, SERUM 7.4 g/dL (6.4-8.2)
[2022-06-23] MEDS ORDERED: INSULIN REGULAR, HUMAN 100 UNITS/ML IVP ONE (11:45)
[2022-06-23 12:21] VITALS: BP 142/97
[2022-06-24] MEDS ORDERED: TAMS-13 PO (11:49)
[2022-06-24] MEDS ORDERED: GLIP10TA10 PO (11:49)
[2022-06-24] MEDS ORDERED: ASPI-1444 PO (11:49)
[2022-06-24] MEDS ORDERED: GABA-1181 PO (11:49)
[2022-06-24] MEDS ORDERED: FREM225A SQ (11:49)
[2022-06-24] MEDS ORDERED: ATOR40TA71 PO (11:49)
== END 2022-06-23 13:12 | disposition home or self-care (01) ==
LOC: EMS 09:51
DX: E11.65 Type 2 diabetes mellitus with hyperglycemia (principal); G89.29 Other chronic pain; N50.811 Right testicular pain; I10 Essential (primary) hypertension; Z89.422 Acquired absence of other left toe(s); Z98.890 Other specified postprocedural states
CPT/HCPCS: 99284; 96374; 96361; 80053; 82962; 85025; 36415; 96372; J1815; J1885; J7030

== ENCOUNTER 2022-06-24 10:03 | Emergency (ER) | payer OTHER ==
[~2022-06-24] VITALS: Ht 172.7 cm; Wt 77.3 kg
[2022-06-24] MEDS ORDERED: IBUPROFEN 600 MG TABLET PO ONE (11:45)
[2022-06-24] MEDS ORDERED: ACETAMINOPHEN 325 MG TABLET PO ONE (11:45)
[2022-06-24] MEDS ORDERED: ATOR40TA71 PO (11:49)
[2022-06-24] MEDS ORDERED: FREM225A SQ (11:49)
[2022-06-24] MEDS ORDERED: TAMS-13 PO (11:49)
[2022-06-24] MEDS ORDERED: GLIP10TA10 PO (11:49)
[2022-06-24] MEDS ORDERED: GABA-1181 PO (11:49)
[2022-06-24] MEDS ORDERED: ASPI-1444 PO (11:49)
[2022-06-24 12:38] LABS: BASOPHILS % (AUTO) 0.7 % (0.0-2.0); EOSINOPHILS % (AUTO) 7.1 % (1.0-6.0); HEMOGLOBIN 11.8 g/dL (13.5-17.5); LYMPHOCYTES # (AUTO) 1.5 K/uL (1.0-4.8); MEAN CORPUSCULAR HEMOGLOBIN 28.5 pg (26.0-34.0); MEAN CORPUSCULAR HGB CONC 33.7 G/dL (31.0-37.0); MEAN CORPUSCULAR VOLUME 85 fL (80-100); MONOCYTES # (AUTO) 0.5 K/uL (0.1-1.0); MONOCYTES % (AUTO) 8.8 % (2.0-9.0); NEUTROPHILS # (AUTO) 2.7 K/uL (1.8-7.7); NEUTROPHILS % (AUTO) 53.4 % (40.0-70.0); PLATELET COUNT (AUTO) 296 K/uL (150-450); RED BLOOD CELL COUNT(AUTO) 4.14 MIL/uL (4.50-5.90); RED CELL DISTRIBUTION WIDTH 14.2 % (11.5-14.5)
[2022-06-24 13:03] LABS: ANION GAP 7 mmol/L (8-16); CALCIUM, TOTAL 9.6 mg/dL (8.8-10.5); CARBON DIOXIDE 28 mmol/L (22-29); CHLORIDE 98 mmol/L (98-107); CREATININE 0.75 mg/dL (0.60-1.30); GLOMERULAR FILTR. RATE CALC > 60 mL/min (>60); GLUCOSE,RANDOM 210 mg/dL (70-110); POTASSIUM 4.7 mmol/L (3.5-5.1); SODIUM SERUM 133 mmol/L (136-145); UREA NITROGEN, BLOOD 11 mg/dL (7-18)
[2022-06-24 14:32] VITALS: BP 134/97
== END 2022-06-24 14:33 | disposition home or self-care (01) ==
LOC: EMS 10:06
DX: R53.1 Weakness (principal); E11.9 Type 2 diabetes mellitus without complications; I10 Essential (primary) hypertension; Z89.422 Acquired absence of other left toe(s); Z98.890 Other specified postprocedural states
CPT/HCPCS: 99285; 71046; 80048; 84484; 85025; 93005; G0480

== ENCOUNTER 2022-06-26 07:24 | Emergency (ER) | payer OTHER ==
[~2022-06-26] VITALS: Ht 175.3 cm; Wt 81.8 kg
[~2022-06-26 07:24] MED LIST changes: +ASPI-1444 PO; +ATOR40TA71 PO; +FREM225A SQ; +GABA-1181 PO; +GLIP10TA10 PO; -GLIP5TAB11 PO; -NAPR-1025 PO; -POLY17PO52 PO; +TAMS-13 PO
[2022-06-26] MEDS ORDERED: SODIUM CHLORIDE 0.9% 1,000 ML IV ONE (07:45)
[2022-06-26] MEDS ORDERED: KETOROLAC TROMETHAMINE 30 MG/ML VIAL IVP ONE (08:00)
[2022-06-26] MEDS ORDERED: ACETAMINOPHEN 500 MG TABLET PO ONE (08:00)
[2022-06-26 08:28] LABS: BASOPHILS % (AUTO) 0.3 % (0.0-2.0); EOSINOPHILS % (AUTO) 2.7 % (1.0-6.0); HEMATOCRIT 34.6 % (41-53); HEMOGLOBIN 11.9 g/dL (13.5-17.5); LYMPHOCYTES % (AUTO) 17.2 % (22.0-44.0); MEAN CORPUSCULAR HEMOGLOBIN 29.1 pg (26.0-34.0); MEAN CORPUSCULAR HGB CONC 34.5 G/dL (31.0-37.0); MEAN CORPUSCULAR VOLUME 84 fL (80-100); MONOCYTES # (AUTO) 0.4 K/uL (0.1-1.0); MONOCYTES % (AUTO) 7.5 % (2.0-9.0); NEUTROPHILS # (AUTO) 4.2 K/uL (1.8-7.7); NEUTROPHILS % (AUTO) 72.3 % (40.0-70.0); PLATELET COUNT (AUTO) 321 K/uL (150-450); RED CELL DISTRIBUTION WIDTH 14.8 % (11.5-14.5)
[2022-06-26 08:52] LABS: ALANINE AMINOTRANSFERASE 27 U/L (12-78); ALBUMIN 3.8 g/dL (3.4-5.0); ALKALINE PHOSPHATASE 135 U/L (46-116); ANION GAP 9 mmol/L (8-16); ASPARTATE AMINOTRANSFERASE 19 U/L (15-37); BILIRUBIN,TOTAL 0.3 mg/dL (0.1-1.0); CALCIUM, TOTAL 10.3 mg/dL (8.8-10.5); CARBON DIOXIDE 27 mmol/L (22-29); CHLORIDE 98 mmol/L (98-107); CREATINE KINASE, TOTAL ONLY 61 U/L (39-308); CREATININE 0.97 mg/dL (0.60-1.30); GLOMERULAR FILTR. RATE CALC > 60 mL/min (>60); PHOSPHORUS 4.4 mg/dL (2.5-4.9); POTASSIUM 4.3 mmol/L (3.5-5.1); SODIUM SERUM 134 mmol/L (136-145); TOTAL PROTEIN, SERUM 7.8 g/dL (6.4-8.2); UREA NITROGEN, BLOOD 10 mg/dL (7-18)
[2022-06-26 08:56] LABS: B-TYPE NATRIURETIC PEPTIDE 15 pg/mL (0-100)
[2022-06-26 08:58] LABS: GLUCOSE,RANDOM 407 mg/dL (70-110)
[2022-06-26 09:15] LABS: ACETONE,BLOOD NEGATIVE (NEGATIVE)
[2022-06-26] MEDS ORDERED: INSULIN REGULAR, HUMAN 100 UNITS/ML IVP ONE (09:30)
[2022-06-26 11:06] LABS: GLUCOSE,POINT OF CARE 159 MG/DL (70-110)
[2022-06-26] MEDS ORDERED: MAGNESIUM SULFATE 2 GM/WATER 50 ML IV ONE (11:15)
[2022-06-26 11:18] VITALS: BP 147/95
[2022-06-27] MEDS ORDERED: BACL10TA PO (08:00)
== END 2022-06-26 14:23 | disposition home or self-care (01) ==
LOC: EMS 07:26
DX: E11.65 Type 2 diabetes mellitus with hyperglycemia (principal); E83.42 Hypomagnesemia; I10 Essential (primary) hypertension; Z89.422 Acquired absence of other left toe(s); Z98.890 Other specified postprocedural states
CPT/HCPCS: 99285; 96365; 96375; 96361; 80053; 83930; 82009; 82550; 82962; 83735; 83880; 84100; 84484; 85025; 36415; 76870; 93005; J1815; J1885; J7030; J3475

== ENCOUNTER 2022-06-27 07:28 | Emergency (ER) | payer OTHER ==
[~2022-06-27] VITALS: Ht 180.3 cm; Wt 95.5 kg
[2022-06-27 07:40] VITALS: BP 132/68
[2022-06-27] MEDS ORDERED: ACETAMINOPHEN 500 MG TABLET PO ONE (08:00)
[2022-06-27] MEDS ORDERED: BACL10TA PO (08:00)
[2022-06-27] MEDS: KETOROLAC TROMETHAMINE 60 MG/2 ML VIAL IM ONE ×2 (08:03→08:06)
== END 2022-06-27 08:34 | disposition home or self-care (01) ==
LOC: EMS 07:29
DX: N50.819 Testicular pain, unspecified (principal); E11.65 Type 2 diabetes mellitus with hyperglycemia; G89.29 Other chronic pain; I10 Essential (primary) hypertension; Z91.199 Patient's noncompliance with other medical treatment and regimen due to unspecified reason; Z98.890 Other specified postprocedural states; Z89.422 Acquired absence of other left toe(s)
CPT/HCPCS: 99283; 96372; J1885

== ENCOUNTER 2022-06-27 23:02 | Emergency (ER) | payer OTHER ==
[~2022-06-27] VITALS: Ht 180.3 cm; Wt 95.5 kg
[~2022-06-27 23:02] MED LIST changes: -AMLO10TA55 PO; -ASPI-1444 PO; -ATOR40TA71 PO; +BACL10TA PO; -BISA10SU11 PR; -FAMO20TA8 PO; -FREM225A SQ; -GABA-1181 PO; -GLIP10TA10 PO; -INSLAN SQ; -LID5O TP; -LISI10TA24 PO; -METF-446 PO; -RISPC50 IM; -TAMS-13 PO
[2022-06-28] MEDS ORDERED: KETOROLAC TROMETHAMINE 60 MG/2 ML VIAL IM ONE (01:15)
[2022-06-28 03:00] VITALS: BP 124/75
== END 2022-06-28 03:00 | disposition home or self-care (01) ==
LOC: EMS 23:05
DX: R51.9 Headache, unspecified (principal); E11.9 Type 2 diabetes mellitus without complications; I10 Essential (primary) hypertension; Z98.890 Other specified postprocedural states; Z89.422 Acquired absence of other left toe(s)
CPT/HCPCS: 99283; 82962; 96372; J1885

== ENCOUNTER 2022-07-05 07:49 | Emergency (ER) | payer OTHER ==
[~2022-07-05] VITALS: Ht 180.3 cm; Wt 95.5 kg
[2022-07-05] MEDS ORDERED: KETOROLAC TROMETHAMINE 60 MG/2 ML VIAL IM ONE (08:15)
[2022-07-05 09:30] VITALS: BP 145/87
== END 2022-07-05 12:49 | disposition home or self-care (01) ==
LOC: EMS 07:49
DX: N50.811 Right testicular pain (principal); E11.9 Type 2 diabetes mellitus without complications; I10 Essential (primary) hypertension; Z89.422 Acquired absence of other left toe(s); Z98.890 Other specified postprocedural states
CPT/HCPCS: 99283; 82962; 96372; J1885

== ENCOUNTER 2022-07-11 06:46 | Emergency (ER) | payer OTHER ==
[~2022-07-11] VITALS: Ht 177.8 cm; Wt 79.5 kg
[2022-07-11 07:06] LABS: GLUCOMETER DEV NAME(LOC) ERT.5; GLUCOSE,POINT OF CARE 418 MG/DL (70-110)
[2022-07-11 07:09] VITALS: BP 145/90
[2022-07-11] MEDS ORDERED: KETOROLAC TROMETHAMINE 60 MG/2 ML VIAL IM ONE (07:30)
== END 2022-07-11 09:28 | disposition home or self-care (01) ==
LOC: EMS 06:47
DX: S16.1XXA Strain of muscle, fascia and tendon at neck level, initial encounter (principal); E11.9 Type 2 diabetes mellitus without complications; I10 Essential (primary) hypertension; Z89.422 Acquired absence of other left toe(s); Z98.890 Other specified postprocedural states; X58.XXXA Exposure to other specified factors, initial encounter; Y93.89 Activity, other specified; Y92.89 Other specified places as the place of occurrence of the external cause; Y99.8 Other external cause status
CPT/HCPCS: 99283; 82962; 96372; J1885

== ENCOUNTER 2022-07-14 11:46 | Emergency (ER) | payer OTHER ==
[~2022-07-14] VITALS: Ht 177.8 cm; Wt 86.4 kg
[2022-07-14 12:32] VITALS: BP 121/76
[2022-07-14] MEDS ORDERED: KETOROLAC TROMETHAMINE 60 MG/2 ML VIAL IM ONE (13:00)
== END 2022-07-14 13:53 | disposition home or self-care (01) ==
LOC: EMS 11:56
DX: G89.29 Other chronic pain (principal); N50.811 Right testicular pain; F41.9 Anxiety disorder, unspecified; E11.9 Type 2 diabetes mellitus without complications; I10 Essential (primary) hypertension; Z89.422 Acquired absence of other left toe(s); Z98.890 Other specified postprocedural states; Z91.018 Allergy to other foods
CPT/HCPCS: 99283; 82962; 96372; J1885

== ENCOUNTER 2022-09-10 08:40 | Emergency (ER) | payer OTHER ==
[~2022-09-10] VITALS: Ht 180.3 cm; Wt 118.2 kg
[2022-09-10 10:14] LABS: APPEARANCE,URINE CLEAR (CLEAR); BILIRUBIN,URINE NEGATIVE (NEGATIVE); GLUCOSE, URINE (UA) 150-200 mg/dL (NEGATIVE); KETONES,URINE NEGATIVE (NEGATIVE); LEUKOCYTE ESTERASE ,URINE NEGATIVE (NEGATIVE); NITRATE,URINE NEGATIVE (NEGATIVE); OCCULT BLOOD,URINE NEGATIVE (NEGATIVE); PROTEIN,URINE NEGATIVE (NEGATIVE); SPECIFIC GRAVITIY, URINE 1.017 (1.003-1.030); UROBILINOGEN,URINE <=1.0 mg/dL (<=1.0)
[2022-09-10 10:34] LABS: BACTERIA,URINE None Seen /HPF (None Seen); RBC,URINE None Seen /HPF (0-2); WBC,URINE 0-2 /HPF (0-5)
[2022-09-10 10:35] LABS: SQUAMOUS EPITHELIAL CELL,UR Few /LPF (None Seen)
[2022-09-10] MEDS ORDERED: LISI10TA24 PO (11:30)
[2022-09-10] MEDS ORDERED: FAMO20TA8 PO (11:30)
[2022-09-10] MEDS ORDERED: GLIP10TA10 PO (11:30)
[2022-09-10] MEDS ORDERED: RISPC50 IM (11:30)
[2022-09-10] MEDS ORDERED: METF-446 PO (11:30)
[2022-09-10] MEDS ORDERED: FREM225S SQ (11:30)
[2022-09-10] MEDS ORDERED: ASPI-1444 PO (11:30)
[2022-09-10] MEDS ORDERED: KETOROLAC TROMETHAMINE 30 MG/ML VIAL IM ONE (11:30)
[2022-09-10 11:40] VITALS: BP 135/80
== END 2022-09-10 11:42 | disposition home or self-care (01) ==
LOC: EMS 08:49
DX: N50.811 Right testicular pain (principal); F41.9 Anxiety disorder, unspecified; G89.29 Other chronic pain; E11.9 Type 2 diabetes mellitus without complications; I10 Essential (primary) hypertension; Z98.890 Other specified postprocedural states; Z89.422 Acquired absence of other left toe(s); Z91.018 Allergy to other foods
CPT/HCPCS: 99283; 81001; 82962; 96372; J1885; 81003

== ENCOUNTER 2022-09-12 08:21 | Emergency (ER) | payer OTHER ==
[~2022-09-12] VITALS: Ht 177.8 cm; Wt 90.9 kg
[~2022-09-12 08:21] MED LIST changes: +ASPI-1444 PO; +FAMO20TA8 PO; +FREM225S SQ; +GLIP10TA10 PO; +LISI10TA24 PO; +METF-446 PO; +RISPC50 IM
[2022-09-12] MEDS ORDERED: KETOROLAC TROMETHAMINE 60 MG/2 ML VIAL IM ONE (09:45)
[2022-09-12 12:20] VITALS: BP 132/83
== END 2022-09-12 13:00 | disposition home or self-care (01) ==
LOC: EMS 08:25
DX: M54.50 Low back pain, unspecified (principal); E11.9 Type 2 diabetes mellitus without complications; I10 Essential (primary) hypertension; Z88.8 Allergy status to other drugs, medicaments and biological substances
CPT/HCPCS: 99283; 82962; 96372; J1885

== ENCOUNTER 2023-10-08 17:56 | Emergency (ER) | payer OTHER ==
[~2023-10-08] VITALS: Ht 177.8 cm; Wt 90.9 kg
[2023-10-08] MEDS: SODIUM CHLORIDE 0.9% 1,000 ML IV ONE (18:14)
[2023-10-08 18:22] VITALS: BP 133/84; PULSE 80; RESP 18; TEMP 99
[2023-10-08 18:23] LABS: BASOPHILS % (AUTO) 0.5 % (0.0-2.0); EOSINOPHILS % (AUTO) 7.4 % (1.0-6.0); HEMATOCRIT 29.8 % (41-53); LYMPHOCYTES # (AUTO) 1.7 K/uL (1.0-4.8); LYMPHOCYTES % (AUTO) 30.9 % (22.0-44.0); MEAN CORPUSCULAR HEMOGLOBIN 28.1 pg (26.0-34.0); MEAN CORPUSCULAR HGB CONC 33.4 G/dL (31.0-37.0); MEAN CORPUSCULAR VOLUME 84 fL (80-100); MONOCYTES # (AUTO) 0.6 K/uL (0.1-1.0); MONOCYTES % (AUTO) 12.1 % (2.0-9.0); NEUTROPHILS # (AUTO) 2.6 K/uL (1.8-7.7); NEUTROPHILS % (AUTO) 49.1 % (40.0-70.0); PLATELET COUNT (AUTO) 273 K/uL (150-450); RED BLOOD CELL COUNT(AUTO) 3.54 MIL/uL (4.50-5.90); RED CELL DISTRIBUTION WIDTH 15.4 % (11.5-14.5); WHITE BLOOD COUNT (AUTO) 5.3 K/uL (4.5-11.0)
[2023-10-08 18:44] LABS: ANION GAP 11 mmol/L (8-16); CALCIUM, TOTAL 8.1 mg/dL (8.8-10.5); CARBON DIOXIDE 24 mmol/L (22-29); CHLORIDE 93 mmol/L (98-107); CREATININE 0.88 mg/dL (0.60-1.30); GLOMERULAR FILTR. RATE CALC > 60 mL/min (>60); GLUCOSE,RANDOM 266 mg/dL (70-110); POTASSIUM 3.4 mmol/L (3.5-5.1); SODIUM SERUM 128 mmol/L (136-145); UREA NITROGEN, BLOOD 11 mg/dL (7-18)
[2023-10-08 18:49] LABS: ALANINE AMINOTRANSFERASE 34 U/L (12-78); ALBUMIN 2.8 g/dL (3.4-5.0); ALKALINE PHOSPHATASE 109 U/L (46-116); ASPARTATE AMINOTRANSFERASE 25 U/L (15-37); BILIRUBIN,TOTAL 0.2 mg/dL (0.1-1.0); LIPASE 35 U/L (16-77); TOTAL PROTEIN, SERUM 6.3 g/dL (6.4-8.2)
[2023-10-08 18:59] LABS: APPEARANCE,URINE CLEAR (CLEAR); BILIRUBIN,URINE NEGATIVE (NEGATIVE); COLOR,URINE LIGHT YELLOW (YELLOW); GLUCOSE, URINE (UA) 300-500 mg/dL (NEGATIVE); KETONES,URINE NEGATIVE (NEGATIVE); LEUKOCYTE ESTERASE ,URINE NEGATIVE (NEGATIVE); NITRATE,URINE NEGATIVE (NEGATIVE); OCCULT BLOOD,URINE NEGATIVE (NEGATIVE); PROTEIN,URINE TRACE mg/dL (NEGATIVE); SPECIFIC GRAVITIY, URINE 1.007 (1.003-1.030); UROBILINOGEN,URINE <=1.0 mg/dL (<=1.0)
[2023-10-08 19:01] LABS: RBC,URINE 0-2 /HPF (0-2); WBC,URINE 0-2 /HPF (0-5)
[2023-10-08 19:02] LABS: BACTERIA,URINE None Seen /HPF (None Seen); SQUAMOUS EPITHELIAL CELL,UR Rare /LPF (None Seen)
[2023-10-09] MEDS ORDERED: OMEP20CA12 PO (14:36)
[2023-10-09] MEDS ORDERED: [UNRECOGNIZED DRUG - CODE] PO (14:36)
[2023-10-09] MEDS ORDERED: DOCU100C33 PO (14:36)
== END 2023-10-08 22:00 | disposition home or self-care (01) ==
LOC: EMS 17:56
DX: R10.9 Unspecified abdominal pain (principal); R11.2 Nausea with vomiting, unspecified; E11.9 Type 2 diabetes mellitus without complications; I10 Essential (primary) hypertension
CPT/HCPCS: 80053; 81001; 83690; 85025; 96360; 99283; 36415-L1; 36415-TC

== ENCOUNTER 2023-10-09 12:58 | Emergency (ER) | payer OTHER ==
[~2023-10-09] VITALS: Ht 172.7 cm; Wt 79.5 kg
[2023-10-09 13:05] VITALS: TEMP 98.4
[2023-10-09] MEDS ORDERED: [UNRECOGNIZED DRUG - CODE] PO (14:36)
[2023-10-09] MEDS ORDERED: DOCU100C33 PO (14:36)
[2023-10-09] MEDS ORDERED: OMEP20CA12 PO (14:36)
[2023-10-09] MEDS: ONDANSETRON HCL 4 MG TABLET PO ONE (14:42)
[2023-10-09] MEDS: DiphenhydrAMINE HCL 25 MG CAPSULE PO ONE (14:44)
[2023-10-09] MEDS: MAG HYDROX/ALUMINUM HYD/SIMETH ES 30 ML SUSPENSION UDCUP PO ONE (14:44)
[2023-10-09] MEDS: ACETAMINOPHEN 500 MG TABLET PO ONE (14:45)
[2023-10-09 15:42] VITALS: BP 126/78; PULSE 84; RESP 18
[2023-10-10] MEDS ORDERED: POLY17PO62 PO (18:41)
== END 2023-10-09 15:46 | disposition home or self-care (01) ==
LOC: EMS 12:58
DX: K30 Functional dyspepsia (principal); F41.9 Anxiety disorder, unspecified; F20.9 Schizophrenia, unspecified; R51.9 Headache, unspecified; E11.9 Type 2 diabetes mellitus without complications; I10 Essential (primary) hypertension; Z91.018 Allergy to other foods
CPT/HCPCS: 99284; 82962; Q0162

== ENCOUNTER 2023-10-10 12:01 | Emergency (ER) | payer OTHER ==
[~2023-10-10] VITALS: Ht 175.3 cm; Wt 85.0 kg
[~2023-10-10 12:01] MED LIST changes: +DOCU100C33 PO; +OMEP20CA12 PO; +[UNRECOGNIZED DRUG - CODE] PO
[2023-10-10 12:40] VITALS: TEMP 98.4
[2023-10-10 15:56] LABS: BASOPHILS % (AUTO) 0.4 % (0.0-2.0); EOSINOPHILS % (AUTO) 6.9 % (1.0-6.0); HEMATOCRIT 34.2 % (41-53); HEMOGLOBIN 11.1 g/dL (13.5-17.5); LYMPHOCYTES # (AUTO) 1.3 K/uL (1.0-4.8); LYMPHOCYTES % (AUTO) 26.1 % (22.0-44.0); MEAN CORPUSCULAR HEMOGLOBIN 27.6 pg (26.0-34.0); MEAN CORPUSCULAR HGB CONC 32.6 G/dL (31.0-37.0); MEAN CORPUSCULAR VOLUME 85 fL (80-100); MONOCYTES # (AUTO) 0.5 K/uL (0.1-1.0); MONOCYTES % (AUTO) 9.1 % (2.0-9.0); NEUTROPHILS # (AUTO) 2.9 K/uL (1.8-7.7); NEUTROPHILS % (AUTO) 57.5 % (40.0-70.0); PLATELET COUNT (AUTO) 301 K/uL (150-450); RED BLOOD CELL COUNT(AUTO) 4.04 MIL/uL (4.50-5.90); RED CELL DISTRIBUTION WIDTH 15.3 % (11.5-14.5)
[2023-10-10 16:05] LABS: ANION GAP 8 mmol/L (8-16); CALCIUM, TOTAL 8.8 mg/dL (8.8-10.5); CARBON DIOXIDE 27 mmol/L (22-29); CHLORIDE 97 mmol/L (98-107); GLOMERULAR FILTR. RATE CALC > 60 mL/min (>60); GLUCOSE,RANDOM 268 mg/dL (70-110); POTASSIUM 4.1 mmol/L (3.5-5.1); SODIUM SERUM 131 mmol/L (136-145); UREA NITROGEN, BLOOD 11 mg/dL (7-18)
[2023-10-10 16:11] LABS: ALANINE AMINOTRANSFERASE 30 U/L (12-78); ALBUMIN 3.2 g/dL (3.4-5.0); ALKALINE PHOSPHATASE 123 U/L (46-116); ASPARTATE AMINOTRANSFERASE 16 U/L (15-37); BILIRUBIN,TOTAL 0.1 mg/dL (0.1-1.0); LIPASE 35 U/L (16-77); TOTAL PROTEIN, SERUM 7.3 g/dL (6.4-8.2)
[2023-10-10] MEDS: SODIUM CHLORIDE 0.9% 1,000 ML IV ONE (17:02)
[2023-10-10] MEDS: KETOROLAC TROMETHAMINE 30 MG/ML VIAL IVP ONE (17:05)
[2023-10-10 17:54] LABS: APPEARANCE,URINE CLEAR (CLEAR); BILIRUBIN,URINE NEGATIVE (NEGATIVE); COLOR,URINE COLORLESS (YELLOW); GLUCOSE, URINE (UA) 300-500 mg/dL (NEGATIVE); KETONES,URINE NEGATIVE (NEGATIVE); LEUKOCYTE ESTERASE ,URINE NEGATIVE (NEGATIVE); NITRATE,URINE NEGATIVE (NEGATIVE); OCCULT BLOOD,URINE NEGATIVE (NEGATIVE); PH,URINE 5.5 (5.0-8.0); PROTEIN,URINE TRACE mg/dL (NEGATIVE); UROBILINOGEN,URINE <=1.0 mg/dL (<=1.0)
[2023-10-10 18:11] LABS: BACTERIA,URINE None Seen /HPF (None Seen); RBC,URINE None Seen /HPF (0-2); SQUAMOUS EPITHELIAL CELL,UR None Seen /LPF (None Seen); WBC,URINE None Seen /HPF (0-5)
[2023-10-10] MEDS ORDERED: POLY17PO62 PO (18:41)
[2023-10-10 19:23] VITALS: BP 131/78; PULSE 91; RESP 16
[2023-10-11] MEDS ORDERED: PERM60CR4 TP (17:49)
[2023-10-11] MEDS ORDERED: DIPH50 PO (17:49)
== END 2023-10-10 19:35 | disposition home or self-care (01) ==
LOC: EMS 12:03
DX: K59.00 Constipation, unspecified (principal); R10.30 Lower abdominal pain, unspecified; E11.9 Type 2 diabetes mellitus without complications; I10 Essential (primary) hypertension; Z91.018 Allergy to other foods
CPT/HCPCS: 99285; 96374; 96361; 80053; 81001; 83690; 85025; 36415; 74018; 93005; J1885; J7030

== ENCOUNTER 2023-10-11 14:49 | Emergency (ER) | payer OTHER ==
[~2023-10-11] VITALS: Ht 175.3 cm; Wt 79.0 kg
[~2023-10-11 14:49] MED LIST changes: +POLY17PO62 PO
[2023-10-11 15:10] VITALS: BP 136/86; PULSE 105; RESP 18; TEMP 97.7
[2023-10-11] MEDS ORDERED: DIPH50 PO (17:49)
[2023-10-11] MEDS ORDERED: PERM60CR4 TP (17:49)
== END 2023-10-11 18:30 | disposition home or self-care (01) ==
LOC: EMS 14:49
DX: B86 Scabies (principal); E11.9 Type 2 diabetes mellitus without complications; I10 Essential (primary) hypertension; Z91.018 Allergy to other foods
CPT/HCPCS: 99282; Z7502

== ENCOUNTER 2023-10-16 12:38 | Emergency (ER) | payer OTHER ==
[~2023-10-16] VITALS: Ht 170.2 cm; Wt 75.0 kg
[~2023-10-16 12:38] MED LIST changes: +DIPH50 PO; +PERM60CR4 TP
[2023-10-16 13:30] LABS: BASOPHILS % (AUTO) 0.6 % (0.0-2.0); EOSINOPHILS % (AUTO) 4.5 % (1.0-6.0); HEMATOCRIT 34.6 % (41-53); HEMOGLOBIN 11.5 g/dL (13.5-17.5); LYMPHOCYTES # (AUTO) 1.4 K/uL (1.0-4.8); MEAN CORPUSCULAR HEMOGLOBIN 27.7 pg (26.0-34.0); MEAN CORPUSCULAR HGB CONC 33.2 G/dL (31.0-37.0); MEAN CORPUSCULAR VOLUME 83 fL (80-100); MONOCYTES # (AUTO) 0.6 K/uL (0.1-1.0); NEUTROPHILS # (AUTO) 2.7 K/uL (1.8-7.7); NEUTROPHILS % (AUTO) 54.9 % (40.0-70.0); PLATELET COUNT (AUTO) 312 K/uL (150-450); RED BLOOD CELL COUNT(AUTO) 4.16 MIL/uL (4.50-5.90); RED CELL DISTRIBUTION WIDTH 15.1 % (11.5-14.5)
[2023-10-16 13:31] VITALS: BP 156/93; PULSE 96; RESP 18; TEMP 98
[2023-10-16 13:44] LABS: ANION GAP 7 mmol/L (8-16); CARBON DIOXIDE 28 mmol/L (22-29); CHLORIDE 97 mmol/L (98-107); CREATININE 1.05 mg/dL (0.60-1.30); GLOMERULAR FILTR. RATE CALC > 60 mL/min (>60); GLUCOSE,RANDOM 193 mg/dL (70-110); POTASSIUM 3.9 mmol/L (3.5-5.1); SODIUM SERUM 132 mmol/L (136-145); UREA NITROGEN, BLOOD 14 mg/dL (7-18)
[2023-10-16 13:51] LABS: ALANINE AMINOTRANSFERASE 34 U/L (12-78); ALBUMIN 3.3 g/dL (3.4-5.0); ALKALINE PHOSPHATASE 132 U/L (46-116); ASPARTATE AMINOTRANSFERASE 16 U/L (15-37); BILIRUBIN,TOTAL 0.1 mg/dL (0.1-1.0); LIPASE 32 U/L (16-77); TOTAL PROTEIN, SERUM 7.7 g/dL (6.4-8.2)
[2023-10-16] MEDS: BISACODYL 10 MG RECTAL RECTAL SUPPOSITORY PR ONE (14:20)
[2023-10-16] MEDS: KETOROLAC TROMETHAMINE 60 MG/2 ML VIAL IM ONE (14:37)
[2023-10-16] MEDS ORDERED: POLY17PO62 PO (14:39)
[2023-10-16] MEDS ORDERED: OMEP20CA12 PO (14:39)
== END 2023-10-16 14:50 | disposition home or self-care (01) ==
LOC: EMS 12:38
DX: R10.13 Epigastric pain (principal); E11.65 Type 2 diabetes mellitus with hyperglycemia; F20.9 Schizophrenia, unspecified; I10 Essential (primary) hypertension; Z91.018 Allergy to other foods
CPT/HCPCS: 99283; 80053; 83690; 85025; 36415; 82962; 96372; J1885

== ENCOUNTER 2023-10-19 15:01 | Emergency (ER) | payer OTHER ==
[~2023-10-19] VITALS: Ht 180.3 cm; Wt 100.0 kg
[2023-10-19 15:08] VITALS: BP 141/82; PULSE 100; RESP 18; TEMP 97.9
[2023-10-19] MEDS ORDERED: ONDA-243 PO (15:11)
[2023-10-19] MEDS ORDERED: POLY510P31 PO (15:11)
[2023-10-19] MEDS ORDERED: LIDO100S39 PO (15:11)
[2023-10-19] MEDS ORDERED: MAG-164 PO (15:11)
[2023-10-19] MEDS ORDERED: HYDR-4808 PO (15:11)
[2023-10-19] MEDS ORDERED: LACTULOSE PO (15:11)
[2023-10-19] MEDS ORDERED: DICY20TA95 PO (15:11)
[2023-10-19] MEDS ORDERED: DIPH50CA35 PO (15:11)
[2023-10-19] MEDS ORDERED: LACT10SO10 PO (16:49)
[2023-10-19] MEDS: ONDANSETRON HCL 4 MG TABLET PO ONE (17:16)
[2023-10-19] MEDS: PB/HYOSCY/ATR/SCOP/LIDO/MAALOX 55 ML BOTTLE PO ONE (17:16)
[2023-10-19] MEDS: OMEPRAZOLE 20 MG CAPSULE PO ONE (17:16)
== END 2023-10-19 18:10 | disposition home or self-care (01) ==
LOC: EMS 15:01
DX: R10.13 Epigastric pain (principal); E11.9 Type 2 diabetes mellitus without complications; I10 Essential (primary) hypertension
CPT/HCPCS: 99284; Q0162

== ENCOUNTER 2023-10-20 15:43 | Emergency (ER) | payer OTHER ==
[~2023-10-20] VITALS: Ht 180.3 cm; Wt 97.7 kg
[~2023-10-20 15:43] MED LIST changes: -ASPI-1444 PO; +DICY20TA95 PO; -DIPH50 PO; +DIPH50CA35 PO; -FREM225S SQ; -GLIP10TA10 PO; +HYDR-4808 PO; +LACT10SO10 PO; +LIDO100S39 PO; -LISI10TA24 PO; +MAG-164 PO; -METF-446 PO; -OMEP20CA12 PO; +ONDA-243 PO; -PERM60CR4 TP; -POLY17PO62 PO; +POLY510P31 PO; -[UNRECOGNIZED DRUG - CODE] PO
[2023-10-20 15:54] VITALS: BP 133/83; PULSE 102; RESP 16; TEMP 97.9
== END 2023-10-20 19:12 | disposition left against medical advice (07) ==
LOC: EMS 15:50
DX: R10.9 Unspecified abdominal pain (principal); Z53.21 Procedure and treatment not carried out due to patient leaving prior to being seen by health care provider

== ENCOUNTER 2023-11-01 13:36 | Emergency (ER) | payer OTHER ==
[~2023-11-01] VITALS: Ht 177.8 cm; Wt 90.9 kg
[2023-11-01 13:57] VITALS: BP 146/84; PULSE 76; RESP 16; TEMP 98.2
[2023-11-01] MEDS ORDERED: TRIA15CR49 TP (14:30)
[2023-11-01] MEDS: ACETAMINOPHEN 500 MG TABLET PO ONE (14:44)
[2023-11-01] MEDS: OMEPRAZOLE 20 MG CAPSULE PO ONE (14:44)
== END 2023-11-01 16:59 | disposition home or self-care (01) ==
LOC: EMS 13:39
DX: K29.70 Gastritis, unspecified, without bleeding (principal); K30 Functional dyspepsia; F20.9 Schizophrenia, unspecified; E11.9 Type 2 diabetes mellitus without complications; I10 Essential (primary) hypertension; Z91.018 Allergy to other foods
CPT/HCPCS: 99283

== ENCOUNTER 2023-11-03 17:24 | Emergency (ER) | payer OTHER ==
[~2023-11-03] VITALS: Ht 175.3 cm; Wt 81.8 kg
[~2023-11-03 17:24] MED LIST changes: +TRIA15CR49 TP
[2023-11-03 17:41] VITALS: BP 144/86; PULSE 101; RESP 14; TEMP 98.7
[2023-11-03 17:56] LABS: GLUCOMETER DEV NAME(LOC) ER.7; GLUCOSE,POINT OF CARE 321 MG/DL (70-110)
[2023-11-03] MEDS: ONDANSETRON HCL 4 MG TABLET PO ONE (20:23)
[2023-11-03] MEDS: ACETAMINOPHEN 500 MG TABLET PO ONE (20:23)
[2023-11-03] MEDS: FAMOTIDINE 20 MG TABLET PO ONE (20:23)
[2023-11-03 20:38] LABS: BASOPHILS % (AUTO) 0.6 % (0.0-2.0); EOSINOPHILS % (AUTO) 5.9 % (1.0-6.0); HEMATOCRIT 36.7 % (41-53); HEMOGLOBIN 11.9 g/dL (13.5-17.5); LYMPHOCYTES # (AUTO) 1.6 K/uL (1.0-4.8); LYMPHOCYTES % (AUTO) 32.9 % (22.0-44.0); MEAN CORPUSCULAR HEMOGLOBIN 26.8 pg (26.0-34.0); MEAN CORPUSCULAR HGB CONC 32.3 G/dL (31.0-37.0); MEAN CORPUSCULAR VOLUME 83 fL (80-100); MONOCYTES # (AUTO) 0.5 K/uL (0.1-1.0); MONOCYTES % (AUTO) 9.7 % (2.0-9.0); NEUTROPHILS # (AUTO) 2.5 K/uL (1.8-7.7); NEUTROPHILS % (AUTO) 50.9 % (40.0-70.0); PLATELET COUNT (AUTO) 342 K/uL (150-450); RED BLOOD CELL COUNT(AUTO) 4.42 MIL/uL (4.50-5.90); RED CELL DISTRIBUTION WIDTH 15.3 % (11.5-14.5)
[2023-11-03 20:50] LABS: ANION GAP 8 mmol/L (8-16); CALCIUM, TOTAL 9.3 mg/dL (8.8-10.5); CARBON DIOXIDE 28 mmol/L (22-29); CHLORIDE 96 mmol/L (98-107); CREATININE 0.78 mg/dL (0.60-1.30); GLOMERULAR FILTR. RATE CALC > 60 mL/min (>60); GLUCOSE,RANDOM 231 mg/dL (70-110); POTASSIUM 3.3 mmol/L (3.5-5.1); SODIUM SERUM 132 mmol/L (136-145); UREA NITROGEN, BLOOD 12 mg/dL (7-18)
[2023-11-03 20:58] LABS: ALANINE AMINOTRANSFERASE 27 U/L (12-78); ALBUMIN 3.4 g/dL (3.4-5.0); ALKALINE PHOSPHATASE 114 U/L (46-116); ASPARTATE AMINOTRANSFERASE 18 U/L (15-37); BILIRUBIN,TOTAL 0.3 mg/dL (0.1-1.0); LIPASE 32 U/L (16-77)
[2023-11-03 21:12] LABS: APPEARANCE,URINE CLEAR (CLEAR); BILIRUBIN,URINE NEGATIVE (NEGATIVE); COLOR,URINE YELLOW (YELLOW); GLUCOSE, URINE (UA) >=1000 mg/dL (NEGATIVE); KETONES,URINE NEGATIVE (NEGATIVE); LEUKOCYTE ESTERASE ,URINE NEGATIVE (NEGATIVE); NITRATE,URINE NEGATIVE (NEGATIVE); OCCULT BLOOD,URINE NEGATIVE (NEGATIVE); PH,URINE 5.5 (5.0-8.0); PROTEIN,URINE 100-200,SEE CONFIRM mg/dL (NEGATIVE); SPECIFIC GRAVITIY, URINE 1.016 (1.003-1.030); UROBILINOGEN,URINE <=1.0 mg/dL (<=1.0)
[2023-11-03 21:19] LABS: AMPHET/METH SCREEN,URINE NEGATIVE (NEGATIVE); BARBITURATE SCREEN, URINE NEGATIVE (NEGATIVE); BENZODIAZEPINES SCREEN,URINE NEGATIVE (NEGATIVE); CANNABINOID SCREEN,URINE NEGATIVE (NEGATIVE); COCAINE SCREEN,URINE NEGATIVE (NEGATIVE); METHADONE SCREEN, URINE NEGATIVE (NEGATIVE); OPIATE SCREEN,URINE NEGATIVE (NEGATIVE); PHENCYCLIDINE SCREEN,URINE NEGATIVE (NEGATIVE); SULFOSALICYLIC ACID,URINE 3+ (Negative)
[2023-11-03 21:28] LABS: ALCOHOL, URINE DRUG SCREEN NEGATIVE (NEGATIVE)
[2023-11-03 21:32] LABS: PH,URINE DRUG SCREEN 5.5 (5.0-8.0)
[2023-11-03 21:39] LABS: BACTERIA,URINE None Seen /HPF (None Seen); RBC,URINE None Seen /HPF (0-2); WBC,URINE None Seen /HPF (0-5)
[2023-11-03] MEDS ORDERED: ACET-3385 PO (21:43)
== END 2023-11-03 22:08 | disposition home or self-care (01) ==
LOC: EMS 17:36
DX: J02.9 Acute pharyngitis, unspecified (principal); R52 Pain, unspecified; E11.9 Type 2 diabetes mellitus without complications; I10 Essential (primary) hypertension; Z89.422 Acquired absence of other left toe(s); Z98.890 Other specified postprocedural states; Z91.018 Allergy to other foods
CPT/HCPCS: 99284; 80048; 80076; 82962; 83690; 85025; 87430; 36415; 80307; 81001; G0480; Q0162; 81002

== ENCOUNTER 2023-11-04 21:56 | Emergency (ER) | payer OTHER ==
[~2023-11-04] VITALS: Ht 175.3 cm; Wt 81.4 kg
[~2023-11-04 21:56] MED LIST changes: +ACET-3385 PO
[2023-11-04 22:01] VITALS: TEMP 98.1
[2023-11-05] MEDS: ACETAMINOPHEN 500 MG TABLET PO ONE (00:09)
[2023-11-05] MEDS ORDERED: POLY119P3 PO (00:16)
[2023-11-05 00:26] VITALS: BP 138/87; PULSE 92; RESP 16
[2023-11-06] MEDS ORDERED: POLY119P3 PO (15:35)
== END 2023-11-05 01:04 | disposition home or self-care (01) ==
LOC: EMS 21:59
DX: K59.00 Constipation, unspecified (principal); E11.9 Type 2 diabetes mellitus without complications; I10 Essential (primary) hypertension; Z89.422 Acquired absence of other left toe(s); Z98.890 Other specified postprocedural states; Z91.018 Allergy to other foods
CPT/HCPCS: 74018; 82962; 99283

== ENCOUNTER 2023-11-06 11:07 | Emergency (ER) | payer OTHER ==
[~2023-11-06] VITALS: Ht 175.3 cm; Wt 84.1 kg
[~2023-11-06 11:07] MED LIST changes: +POLY119P3 PO
[2023-11-06 11:15] VITALS: TEMP 98.3
[2023-11-06] MEDS: SODIUM CHLORIDE 0.9% 1,000 ML IV ONE (11:57)
[2023-11-06] MEDS: ONDANSETRON HCL 4 MG/2 ML VIAL IVP ONE (11:57)
[2023-11-06] MEDS: FAMOTIDINE 20 MG/2 ML VIAL IVP ONE (11:58)
[2023-11-06] MEDS: KETOROLAC TROMETHAMINE 30 MG/ML VIAL IVP ONE (11:58)
[2023-11-06 11:59] LABS: BASOPHILS % (AUTO) 0.5 % (0.0-2.0); EOSINOPHILS % (AUTO) 3.8 % (1.0-6.0); HEMATOCRIT 34.3 % (41-53); HEMOGLOBIN 11.2 g/dL (13.5-17.5); LYMPHOCYTES # (AUTO) 0.9 K/uL (1.0-4.8); LYMPHOCYTES % (AUTO) 15.7 % (22.0-44.0); MEAN CORPUSCULAR HEMOGLOBIN 27.1 pg (26.0-34.0); MEAN CORPUSCULAR HGB CONC 32.8 G/dL (31.0-37.0); MEAN CORPUSCULAR VOLUME 83 fL (80-100); MONOCYTES # (AUTO) 0.5 K/uL (0.1-1.0); MONOCYTES % (AUTO) 8.2 % (2.0-9.0); NEUTROPHILS % (AUTO) 71.8 % (40.0-70.0); PLATELET COUNT (AUTO) 325 K/uL (150-450); RED BLOOD CELL COUNT(AUTO) 4.14 MIL/uL (4.50-5.90); WHITE BLOOD COUNT (AUTO) 5.5 K/uL (4.5-11.0)
[2023-11-06 12:11] LABS: ALANINE AMINOTRANSFERASE 20 U/L (12-78); ALBUMIN 3.2 g/dL (3.4-5.0); ALKALINE PHOSPHATASE 125 U/L (46-116); ANION GAP 8 mmol/L (8-16); ASPARTATE AMINOTRANSFERASE 13 U/L (15-37); BILIRUBIN,TOTAL 0.3 mg/dL (0.1-1.0); CALCIUM, TOTAL 8.3 mg/dL (8.8-10.5); CARBON DIOXIDE 25 mmol/L (22-29); CHLORIDE 95 mmol/L (98-107); CREATININE 1.16 mg/dL (0.60-1.30); GLOMERULAR FILTR. RATE CALC > 60 mL/min (>60); LIPASE 34 U/L (16-77); POTASSIUM 4.3 mmol/L (3.5-5.1); SODIUM SERUM 128 mmol/L (136-145); TOTAL PROTEIN, SERUM 7.4 g/dL (6.4-8.2); UREA NITROGEN, BLOOD 11 mg/dL (7-18)
[2023-11-06 12:14] LABS: ALCOHOL, BLOOD (SERUM) < 3 mg/dL (0-10); GLUCOSE,RANDOM 483 mg/dL (70-110)
[2023-11-06] MEDS ORDERED: IOHEXOL 350 MG/ML 100 ML VIAL ONE (12:21)
[2023-11-06] MEDS ORDERED: SODIUM CHLORIDE 0.9% 100 ML ONE (12:21)
[2023-11-06] MEDS: INSULIN REGULAR, HUMAN 100 UNITS/ML IVP ONE (13:05)
[2023-11-06 15:14] LABS: APPEARANCE,URINE CLEAR (CLEAR); BILIRUBIN,URINE NEGATIVE (NEGATIVE); COLOR,URINE YELLOW (YELLOW); GLUCOSE, URINE (UA) >=1000 mg/dL (NEGATIVE); KETONES,URINE NEGATIVE (NEGATIVE); LEUKOCYTE ESTERASE ,URINE NEGATIVE (NEGATIVE); NITRATE,URINE NEGATIVE (NEGATIVE); OCCULT BLOOD,URINE NEGATIVE (NEGATIVE); PH,URINE 6.5 (5.0-8.0); PH,URINE DRUG SCREEN 6.5 (5.0-8.0); PROTEIN,URINE TRACE mg/dL (NEGATIVE); SPECIFIC GRAVITIY, URINE 1.032 (1.003-1.030); UROBILINOGEN,URINE <=1.0 mg/dL (<=1.0)
[2023-11-06 15:26] LABS: AMPHET/METH SCREEN,URINE NEGATIVE (NEGATIVE); BARBITURATE SCREEN, URINE NEGATIVE (NEGATIVE); BENZODIAZEPINES SCREEN,URINE NEGATIVE (NEGATIVE); CANNABINOID SCREEN,URINE NEGATIVE (NEGATIVE); COCAINE SCREEN,URINE NEGATIVE (NEGATIVE); METHADONE SCREEN, URINE NEGATIVE (NEGATIVE); OPIATE SCREEN,URINE NEGATIVE (NEGATIVE); PHENCYCLIDINE SCREEN,URINE NEGATIVE (NEGATIVE)
[2023-11-06 15:28] LABS: BACTERIA,URINE None Seen /HPF (None Seen); RBC,URINE None Seen /HPF (0-2); SQUAMOUS EPITHELIAL CELL,UR None Seen /LPF (None Seen); WBC,URINE None Seen /HPF (0-5)
[2023-11-06 15:30] LABS: ALCOHOL, URINE DRUG SCREEN NEGATIVE (NEGATIVE)
[2023-11-06 15:31] LABS: OSMOLALITY,URINE 427 mOsm/kg (50-1500)
[2023-11-06] MEDS ORDERED: POLY119P3 PO (15:35)
[2023-11-06 15:56] VITALS: BP 135/77; PULSE 88; RESP 14
[2023-11-06 17:46] LABS: GLUCOMETER DEV NAME(LOC) ERT.5; GLUCOSE,POINT OF CARE 301 MG/DL (70-110)
== END 2023-11-06 15:57 | disposition home or self-care (01) ==
LOC: EMS 11:08
DX: K59.00 Constipation, unspecified (principal); R10.13 Epigastric pain; E11.65 Type 2 diabetes mellitus with hyperglycemia; F20.9 Schizophrenia, unspecified; I10 Essential (primary) hypertension; Z91.198 Patient's noncompliance with other medical treatment and regimen for other reason; Z91.018 Allergy to other foods
CPT/HCPCS: 99285; 74177; 96374; 96375; 96361; 80048; 80076; 81001; 82009; 82962 ×2; 83690; 83930; 83935; 85025; 36415; 93005; 80307; G0480; Q9967; J3490; J1815; J1885; J2405; J7030; J7050

== ENCOUNTER 2023-11-08 12:39 | Emergency (ER) | payer OTHER ==
[~2023-11-08] VITALS: Ht 175.3 cm; Wt 81.8 kg
[2023-11-08 12:51] VITALS: BP 151/74; PULSE 105; RESP 16; TEMP 98.8
[2023-11-08 13:55] LABS: BASOPHILS % (AUTO) 0.9 % (0.0-2.0); EOSINOPHILS % (AUTO) 7.9 % (1.0-6.0); HEMATOCRIT 36.3 % (41-53); HEMOGLOBIN 11.8 g/dL (13.5-17.5); LYMPHOCYTES # (AUTO) 1.1 K/uL (1.0-4.8); LYMPHOCYTES % (AUTO) 23.7 % (22.0-44.0); MEAN CORPUSCULAR HEMOGLOBIN 26.7 pg (26.0-34.0); MEAN CORPUSCULAR HGB CONC 32.5 G/dL (31.0-37.0); MEAN CORPUSCULAR VOLUME 82 fL (80-100); MONOCYTES # (AUTO) 0.5 K/uL (0.1-1.0); MONOCYTES % (AUTO) 10.8 % (2.0-9.0); NEUTROPHILS # (AUTO) 2.8 K/uL (1.8-7.7); NEUTROPHILS % (AUTO) 56.7 % (40.0-70.0); PLATELET COUNT (AUTO) 345 K/uL (150-450); RED BLOOD CELL COUNT(AUTO) 4.41 MIL/uL (4.50-5.90); RED CELL DISTRIBUTION WIDTH 15.4 % (11.5-14.5); WHITE BLOOD COUNT (AUTO) 4.9 K/uL (4.5-11.0)
[2023-11-08 14:15] LABS: ALANINE AMINOTRANSFERASE 27 U/L (12-78); ALBUMIN 3.4 g/dL (3.4-5.0); ALKALINE PHOSPHATASE 128 U/L (46-116); ANION GAP 7 mmol/L (8-16); ASPARTATE AMINOTRANSFERASE 19 U/L (15-37); BILIRUBIN,TOTAL 0.2 mg/dL (0.1-1.0); CALCIUM, TOTAL 8.7 mg/dL (8.8-10.5); CARBON DIOXIDE 26 mmol/L (22-29); CHLORIDE 95 mmol/L (98-107); CREATININE 1.09 mg/dL (0.60-1.30); GLOMERULAR FILTR. RATE CALC > 60 mL/min (>60); LIPASE 38 U/L (16-77); POTASSIUM 4.5 mmol/L (3.5-5.1); SODIUM SERUM 128 mmol/L (136-145); UREA NITROGEN, BLOOD 14 mg/dL (7-18)
[2023-11-08 14:19] LABS: GLUCOSE,RANDOM 429 mg/dL (70-110)
== END 2023-11-08 17:53 | disposition left against medical advice (07) ==
LOC: EMS 12:39
DX: F41.9 Anxiety disorder, unspecified (principal); Z53.21 Procedure and treatment not carried out due to patient leaving prior to being seen by health care provider
CPT/HCPCS: 80048; 80076; 83690; 85025

== ENCOUNTER 2023-11-09 10:30 | Emergency (ER) | payer OTHER ==
[~2023-11-09] VITALS: Ht 177.8 cm; Wt 79.5 kg
[~2023-11-09 10:30] MED LIST changes: -POLY510P31 PO
[2023-11-09 10:37] VITALS: TEMP 97.2
[2023-11-09 10:59] LABS: APPEARANCE,URINE CLEAR (CLEAR); BILIRUBIN,URINE NEGATIVE (NEGATIVE); COLOR,URINE LIGHT YELLOW (YELLOW); GLUCOSE, URINE (UA) >=1000 mg/dL (NEGATIVE); KETONES,URINE NEGATIVE (NEGATIVE); LEUKOCYTE ESTERASE ,URINE NEGATIVE (NEGATIVE); NITRATE,URINE NEGATIVE (NEGATIVE); OCCULT BLOOD,URINE NEGATIVE (NEGATIVE); PH,URINE 7.5 (5.0-8.0); PROTEIN,URINE 30-70 mg/dL (NEGATIVE); SPECIFIC GRAVITIY, URINE 1.026 (1.003-1.030); UROBILINOGEN,URINE <=1.0 mg/dL (<=1.0)
[2023-11-09 11:06] LABS: GLUCOMETER DEV NAME(LOC) ER.7; GLUCOSE,POINT OF CARE 497 MG/DL (70-110)
[2023-11-09 11:10] LABS: BACTERIA,URINE None Seen /HPF (None Seen); RBC,URINE None Seen /HPF (0-2); SQUAMOUS EPITHELIAL CELL,UR None Seen /LPF (None Seen); WBC,URINE None Seen /HPF (0-5)
[2023-11-09 11:13] LABS: BASOPHILS % (AUTO) 0.8 % (0.0-2.0); EOSINOPHILS % (AUTO) 6.8 % (1.0-6.0); HEMATOCRIT 35.9 % (41-53); HEMOGLOBIN 11.9 g/dL (13.5-17.5); LYMPHOCYTES # (AUTO) 0.9 K/uL (1.0-4.8); LYMPHOCYTES % (AUTO) 17.3 % (22.0-44.0); MEAN CORPUSCULAR HEMOGLOBIN 27.1 pg (26.0-34.0); MEAN CORPUSCULAR HGB CONC 33.1 G/dL (31.0-37.0); MEAN CORPUSCULAR VOLUME 82 fL (80-100); MONOCYTES # (AUTO) 0.5 K/uL (0.1-1.0); MONOCYTES % (AUTO) 8.7 % (2.0-9.0); NEUTROPHILS # (AUTO) 3.6 K/uL (1.8-7.7); NEUTROPHILS % (AUTO) 66.4 % (40.0-70.0); PLATELET COUNT (AUTO) 305 K/uL (150-450); RED BLOOD CELL COUNT(AUTO) 4.38 MIL/uL (4.50-5.90); RED CELL DISTRIBUTION WIDTH 15.5 % (11.5-14.5); WHITE BLOOD COUNT (AUTO) 5.4 K/uL (4.5-11.0)
[2023-11-09 11:37] LABS: ANION GAP 8 mmol/L (8-16); CALCIUM, TOTAL 8.9 mg/dL (8.8-10.5); CARBON DIOXIDE 26 mmol/L (22-29); CHLORIDE 95 mmol/L (98-107); CREATININE 1.06 mg/dL (0.60-1.30); GLOMERULAR FILTR. RATE CALC > 60 mL/min (>60); LIPASE 47 U/L (16-77); POTASSIUM 4.5 mmol/L (3.5-5.1); SODIUM SERUM 129 mmol/L (136-145); UREA NITROGEN, BLOOD 17 mg/dL (7-18)
[2023-11-09 11:39] LABS: GLUCOSE,RANDOM 547 mg/dL (70-110)
[2023-11-09] MEDS: ONDANSETRON HCL 4 MG/2 ML VIAL IVP ONE (11:52)
[2023-11-09] MEDS: SODIUM CHLORIDE 0.9% 1,000 ML IV ONE (11:52)
[2023-11-09] MEDS: FAMOTIDINE 20 MG/2 ML VIAL IVP ONE (11:52)
[2023-11-09] MEDS: INSULIN REGULAR, HUMAN 100 UNITS/ML IVP ONE (11:53)
[2023-11-09] MEDS: ACETAMINOPHEN 500 MG TABLET PO ONE (11:53)
[2023-11-09 13:00] VITALS: BP 141/79; PULSE 100; RESP 18
[2023-11-09] MEDS: KETOROLAC TROMETHAMINE 30 MG/ML VIAL IVP ONE (13:19)
== END 2023-11-09 13:32 | disposition home or self-care (01) ==
LOC: EMS 10:31
DX: R10.9 Unspecified abdominal pain (principal); E11.65 Type 2 diabetes mellitus with hyperglycemia; R11.0 Nausea; Z91.018 Allergy to other foods; I10 Essential (primary) hypertension
CPT/HCPCS: 99284; 96374; 96375; 96361; 80048; 81001; 82962 ×2; 83690; 85025; 36415; J3490; J1815; J1885; J2405; J7030

== ENCOUNTER 2023-12-13 21:09 | Emergency (ER) | payer OTHER ==
[~2023-12-13] VITALS: Ht 175.3 cm; Wt 77.3 kg
[2023-12-13 21:23] VITALS: TEMP 97.4
[2023-12-13] MEDS: PANTOPRAZOLE SODIUM 40 MG/VIAL IVP ONE (23:15)
[2023-12-13] MEDS: SODIUM CHLORIDE 0.9% 1,000 ML IV ONE (23:15)
[2023-12-13] MEDS: ONDANSETRON HCL 4 MG/2 ML VIAL IVP ONE (23:15)
[2023-12-13 23:26] LABS: BASOPHILS % (AUTO) 0.5 % (0.0-2.0); EOSINOPHILS % (AUTO) 7.2 % (1.0-6.0); HEMATOCRIT 34.6 % (41-53); LYMPHOCYTES # (AUTO) 2.3 K/uL (1.0-4.8); LYMPHOCYTES % (AUTO) 39.4 % (22.0-44.0); MEAN CORPUSCULAR HEMOGLOBIN 26.2 pg (26.0-34.0); MEAN CORPUSCULAR HGB CONC 31.9 G/dL (31.0-37.0); MEAN CORPUSCULAR VOLUME 82 fL (80-100); MONOCYTES # (AUTO) 0.6 K/uL (0.1-1.0); MONOCYTES % (AUTO) 10.7 % (2.0-9.0); NEUTROPHILS # (AUTO) 2.4 K/uL (1.8-7.7); NEUTROPHILS % (AUTO) 42.2 % (40.0-70.0); PLATELET COUNT (AUTO) 316 K/uL (150-450); RED BLOOD CELL COUNT(AUTO) 4.21 MIL/uL (4.50-5.90); RED CELL DISTRIBUTION WIDTH 17.2 % (11.5-14.5); WHITE BLOOD COUNT (AUTO) 5.7 K/uL (4.5-11.0)
[2023-12-13 23:30] LABS: ANION GAP 11 mmol/L (8-16); CARBON DIOXIDE 26 mmol/L (22-29); CHLORIDE 98 mmol/L (98-107); CREATININE 0.91 mg/dL (0.60-1.30); GLOMERULAR FILTR. RATE CALC > 60 mL/min (>60); GLUCOSE,RANDOM 148 mg/dL (70-110); POTASSIUM 4.2 mmol/L (3.5-5.1); SODIUM SERUM 135 mmol/L (136-145); UREA NITROGEN, BLOOD 13 mg/dL (7-18)
[2023-12-13 23:36] LABS: ALANINE AMINOTRANSFERASE 19 U/L (12-78); ALBUMIN 3.1 g/dL (3.4-5.0); ALKALINE PHOSPHATASE 94 U/L (46-116); ASPARTATE AMINOTRANSFERASE 16 U/L (15-37); BILIRUBIN,TOTAL 0.3 mg/dL (0.1-1.0); LIPASE 36 U/L (16-77); TOTAL PROTEIN, SERUM 7.1 g/dL (6.4-8.2)
[2023-12-13 23:43] LABS: ALCOHOL, BLOOD (SERUM) < 3 mg/dL (0-10)
[2023-12-13 23:50] LABS: APPEARANCE,URINE CLEAR (CLEAR); BILIRUBIN,URINE NEGATIVE (NEGATIVE); COLOR,URINE YELLOW (YELLOW); GLUCOSE, URINE (UA) NEGATIVE (NEGATIVE); KETONES,URINE NEGATIVE (NEGATIVE); LEUKOCYTE ESTERASE ,URINE NEGATIVE (NEGATIVE); NITRATE,URINE NEGATIVE (NEGATIVE); OCCULT BLOOD,URINE NEGATIVE (NEGATIVE); PH,URINE 6.5 (5.0-8.0); PH,URINE DRUG SCREEN 6.5 (5.0-8.0); SPECIFIC GRAVITIY, URINE 1.008 (1.003-1.030); UROBILINOGEN,URINE <=1.0 mg/dL (<=1.0)
[2023-12-13 23:56] LABS: PROTEIN,URINE NEGATIVE (NEGATIVE)
[2023-12-13 23:57] LABS: ALCOHOL, URINE DRUG SCREEN NEGATIVE (NEGATIVE); AMPHET/METH SCREEN,URINE NEGATIVE (NEGATIVE); BARBITURATE SCREEN, URINE NEGATIVE (NEGATIVE); BENZODIAZEPINES SCREEN,URINE NEGATIVE (NEGATIVE); CANNABINOID SCREEN,URINE NEGATIVE (NEGATIVE); COCAINE SCREEN,URINE NEGATIVE (NEGATIVE); METHADONE SCREEN, URINE NEGATIVE (NEGATIVE); OPIATE SCREEN,URINE NEGATIVE (NEGATIVE); PHENCYCLIDINE SCREEN,URINE NEGATIVE (NEGATIVE)
[2023-12-14] MEDS: MAG HYDROX/ALUMINUM HYD/SIMETH ES 30 ML SUSPENSION UDCUP PO ONE (02:07)
[2023-12-14] MEDS: BISACODYL 5 MG EC TABLET PO ONE (02:07)
[2023-12-14 02:12] VITALS: BP 120/80; PULSE 91; RESP 16; O2SAT 98
[2023-12-14] MEDS ORDERED: OMEP20 PO (21:51)
== END 2023-12-14 02:46 | disposition home or self-care (01) ==
LOC: EMS 21:09
DX: K59.00 Constipation, unspecified (principal); G89.29 Other chronic pain; R10.9 Unspecified abdominal pain; R11.2 Nausea with vomiting, unspecified; R19.7 Diarrhea, unspecified; E11.9 Type 2 diabetes mellitus without complications; I10 Essential (primary) hypertension; Z91.018 Allergy to other foods
CPT/HCPCS: 80048; 80076; 81003; 83690; 85025; 36415; 99284; 93005; 96361; 96374; 96375; 80307; G0480; J2405; C9113; J7030

== ENCOUNTER 2023-12-14 19:03 | Emergency (ER) | payer OTHER ==
[~2023-12-14] VITALS: Ht 175.3 cm; Wt 77.3 kg
[2023-12-14 19:08] VITALS: BP 127/80; PULSE 91; RESP 16; TEMP 98; O2SAT 98
[2023-12-14 20:26] LABS: BASOPHILS % (AUTO) 0.7 % (0.0-2.0); EOSINOPHILS % (AUTO) 7.2 % (1.0-6.0); HEMATOCRIT 33.8 % (41-53); HEMOGLOBIN 10.8 g/dL (13.5-17.5); LYMPHOCYTES # (AUTO) 1.2 K/uL (1.0-4.8); MEAN CORPUSCULAR HEMOGLOBIN 26.5 pg (26.0-34.0); MEAN CORPUSCULAR VOLUME 83 fL (80-100); MONOCYTES # (AUTO) 0.6 K/uL (0.1-1.0); NEUTROPHILS # (AUTO) 2.9 K/uL (1.8-7.7); NEUTROPHILS % (AUTO) 57.1 % (40.0-70.0); PLATELET COUNT (AUTO) 302 K/uL (150-450); RED BLOOD CELL COUNT(AUTO) 4.09 MIL/uL (4.50-5.90); WHITE BLOOD COUNT (AUTO) 5.2 K/uL (4.5-11.0)
[2023-12-14 20:37] LABS: ANION GAP 13 mmol/L (8-16); CALCIUM, TOTAL 8.5 mg/dL (8.8-10.5); CARBON DIOXIDE 22 mmol/L (22-29); CHLORIDE 97 mmol/L (98-107); CREATININE 1.09 mg/dL (0.60-1.30); GLOMERULAR FILTR. RATE CALC > 60 mL/min (>60); GLUCOSE,RANDOM 285 mg/dL (70-110); LIPASE 40 U/L (16-77); POTASSIUM 4.8 mmol/L (3.5-5.1); SODIUM SERUM 132 mmol/L (136-145); UREA NITROGEN, BLOOD 14 mg/dL (7-18)
[2023-12-14] MEDS ORDERED: OMEP20 PO (21:51)
[2023-12-14] MEDS: MAG HYDROX/ALUMINUM HYD/SIMETH ES 30 ML SUSPENSION UDCUP PO ONE (21:54)
[2023-12-14] MEDS: ACETAMINOPHEN 500 MG TABLET PO ONE (21:54)
[2023-12-14] MEDS: OMEPRAZOLE 20 MG CAPSULE PO ONE (21:54)
== END 2023-12-14 22:09 | disposition home or self-care (01) ==
LOC: EMS 19:03
DX: K29.70 Gastritis, unspecified, without bleeding (principal); R10.10 Upper abdominal pain, unspecified; E11.9 Type 2 diabetes mellitus without complications; I10 Essential (primary) hypertension; Z91.018 Allergy to other foods
CPT/HCPCS: 80048; 82962; 83690; 85025; 93005; 99284

== ENCOUNTER 2024-01-28 18:42 | Emergency (ER) | payer OTHER ==
[~2024-01-28] VITALS: Ht 172.7 cm; Wt 88.6 kg
[~2024-01-28 18:42] MED LIST changes: +OMEP20 PO
[2024-01-28 18:45] VITALS: BP 140/80; PULSE 106; RESP 18; TEMP 98.6; O2SAT 99
[2024-01-28 19:12] LABS: BASOPHILS % (AUTO) 0.6 % (0.0-2.0); EOSINOPHILS % (AUTO) 5.7 % (1.0-6.0); HEMATOCRIT 34.8 % (41-53); HEMOGLOBIN 11.3 g/dL (13.5-17.5); LYMPHOCYTES # (AUTO) 1.3 K/uL (1.0-4.8); LYMPHOCYTES % (AUTO) 24.6 % (22.0-44.0); MEAN CORPUSCULAR HEMOGLOBIN 25.8 pg (26.0-34.0); MEAN CORPUSCULAR HGB CONC 32.5 G/dL (31.0-37.0); MEAN CORPUSCULAR VOLUME 79 fL (80-100); MONOCYTES # (AUTO) 0.5 K/uL (0.1-1.0); MONOCYTES % (AUTO) 9.5 % (2.0-9.0); NEUTROPHILS # (AUTO) 3.2 K/uL (1.8-7.7); NEUTROPHILS % (AUTO) 59.6 % (40.0-70.0); PLATELET COUNT (AUTO) 415 K/uL (150-450); RED BLOOD CELL COUNT(AUTO) 4.38 MIL/uL (4.50-5.90); RED CELL DISTRIBUTION WIDTH 16.7 % (11.5-14.5); WHITE BLOOD COUNT (AUTO) 5.4 K/uL (4.5-11.0)
[2024-01-28 19:28] LABS: ANION GAP 9 mmol/L (8-16); CARBON DIOXIDE 27 mmol/L (22-29); CHLORIDE 98 mmol/L (98-107); CREATININE 0.99 mg/dL (0.60-1.30); GLOMERULAR FILTR. RATE CALC > 60 mL/min (>60); GLUCOSE,RANDOM 249 mg/dL (70-110); LIPASE 39 U/L (16-77); POTASSIUM 4.2 mmol/L (3.5-5.1); SODIUM SERUM 134 mmol/L (136-145); UREA NITROGEN, BLOOD 15 mg/dL (7-18)
[2024-01-28 19:37] LABS: CALCIUM, TOTAL 9.1 mg/dL (8.8-10.5)
[2024-01-28] MEDS: PB/HYOSCY/ATR/SCOP/LIDO/MAALOX 55 ML BOTTLE PO ONE (19:59)
[2024-01-28] MEDS: ONDANSETRON HCL 4 MG/2 ML VIAL IM ONE (19:59)
[2024-01-28 20:07] LABS: APPEARANCE,URINE CLEAR (CLEAR); BILIRUBIN,URINE NEGATIVE (NEGATIVE); COLOR,URINE LIGHT YELLOW (YELLOW); GLUCOSE, URINE (UA) NEGATIVE (NEGATIVE); KETONES,URINE NEGATIVE (NEGATIVE); LEUKOCYTE ESTERASE ,URINE NEGATIVE (NEGATIVE); NITRATE,URINE NEGATIVE (NEGATIVE); OCCULT BLOOD,URINE NEGATIVE (NEGATIVE); PH,URINE 6.5 (5.0-8.0); PROTEIN,URINE 100-200,SEE CONFIRM mg/dL (NEGATIVE); SPECIFIC GRAVITIY, URINE 1.013 (1.003-1.030); UROBILINOGEN,URINE <=1.0 mg/dL (<=1.0)
[2024-01-28 20:14] LABS: BACTERIA,URINE None Seen /HPF (None Seen); RBC,URINE None Seen /HPF (0-2); SQUAMOUS EPITHELIAL CELL,UR Rare /LPF (None Seen); SULFOSALICYLIC ACID,URINE 2+ (Negative); WBC,URINE None Seen /HPF (0-5)
== END 2024-01-28 22:12 | disposition home or self-care (01) ==
LOC: EMS 18:44
DX: K29.70 Gastritis, unspecified, without bleeding (principal); F20.9 Schizophrenia, unspecified; E11.65 Type 2 diabetes mellitus with hyperglycemia; I10 Essential (primary) hypertension; Z90.79 Acquired absence of other genital organ(s); Z89.422 Acquired absence of other left toe(s)
CPT/HCPCS: 99283; 80048; 81001; 83690; 85025; 36415; 96372; J2405; 81002

== ENCOUNTER 2024-01-31 11:53 | Emergency (ER) | payer OTHER ==
[~2024-01-31] VITALS: Ht 175.3 cm; Wt 92.0 kg
[2024-01-31 12:11] VITALS: BP 146/92; PULSE 78; RESP 16; TEMP 98; O2SAT 98
[2024-01-31] MEDS: ONDANSETRON 4 MG TABLET PO ONE (12:22)
[2024-01-31] MEDS: FAMOTIDINE 20 MG TABLET PO ONE (12:22)
[2024-01-31] MEDS: ACETAMINOPHEN 500 MG TABLET PO ONE (12:22)
[2024-01-31] MEDS ORDERED: ONDA-104 PO (13:42)
[2024-01-31 13:48] LABS: BASOPHILS % (AUTO) 0.8 % (0.0-2.0); EOSINOPHILS % (AUTO) 6.8 % (1.0-6.0); HEMATOCRIT 36.9 % (41-53); LYMPHOCYTES # (AUTO) 1.3 K/uL (1.0-4.8); LYMPHOCYTES % (AUTO) 23.1 % (22.0-44.0); MEAN CORPUSCULAR HEMOGLOBIN 25.9 pg (26.0-34.0); MEAN CORPUSCULAR HGB CONC 32.6 G/dL (31.0-37.0); MEAN CORPUSCULAR VOLUME 79 fL (80-100); MONOCYTES # (AUTO) 0.6 K/uL (0.1-1.0); MONOCYTES % (AUTO) 10.2 % (2.0-9.0); NEUTROPHILS # (AUTO) 3.2 K/uL (1.8-7.7); NEUTROPHILS % (AUTO) 59.1 % (40.0-70.0); PLATELET COUNT (AUTO) 446 K/uL (150-450); RED BLOOD CELL COUNT(AUTO) 4.65 MIL/uL (4.50-5.90); RED CELL DISTRIBUTION WIDTH 16.4 % (11.5-14.5); WHITE BLOOD COUNT (AUTO) 5.4 K/uL (4.5-11.0)
[2024-01-31 13:56] LABS: ANION GAP 10 mmol/L (8-16); CALCIUM, TOTAL 8.9 mg/dL (8.8-10.5); CARBON DIOXIDE 25 mmol/L (22-29); CHLORIDE 98 mmol/L (98-107); CREATININE 0.76 mg/dL (0.60-1.30); GLOMERULAR FILTR. RATE CALC > 60 mL/min (>60); GLUCOSE,RANDOM 98 mg/dL (70-110); POTASSIUM 4.1 mmol/L (3.5-5.1); SODIUM SERUM 133 mmol/L (136-145); UREA NITROGEN, BLOOD 9 mg/dL (7-18)
[2024-01-31 14:03] LABS: ALANINE AMINOTRANSFERASE 25 U/L (12-78); ALBUMIN 3.3 g/dL (3.4-5.0); ALKALINE PHOSPHATASE 146 U/L (46-116); ASPARTATE AMINOTRANSFERASE 17 U/L (15-37); BILIRUBIN,TOTAL 0.4 mg/dL (0.1-1.0); LIPASE 35 U/L (16-77); TOTAL PROTEIN, SERUM 7.9 g/dL (6.4-8.2)
== END 2024-01-31 14:27 | disposition home or self-care (01) ==
LOC: EMS 11:53
DX: R11.0 Nausea (principal); R51.9 Headache, unspecified; E11.9 Type 2 diabetes mellitus without complications; I10 Essential (primary) hypertension; Z91.018 Allergy to other foods; Z90.79 Acquired absence of other genital organ(s); Z91.199 Patient's noncompliance with other medical treatment and regimen due to unspecified reason
CPT/HCPCS: 99284; 80048; 80076; 83690; 85025; 36415; Q0162

== ENCOUNTER 2024-12-11 18:18 | Inpatient (IN) | payer OTHER ==
[~2024-12-11] VITALS: Ht 172.7 cm; Wt 84.2 kg
[~2024-12-11 18:18] MED LIST changes: -ACET-3385 PO; -DIPH50CA35 PO; -DOCU100C33 PO; +DULA0.75 SQ; -FAMO20TA8 PO; +FERR325T23 PO; -HYDR-4808 PO; +INSU100I26 SQ; -LACT10SO10 PO; -LIDO100S39 PO; -MAG-164 PO; +METF-1211 PO; -OMEP20 PO; +ONDA-104 PO; -ONDA-243 PO; +PANT20TA18 PO; -POLY119P3 PO; +SIME80TA82 PO; +[UNRECOGNIZED DRUG - CODE] PO
[2024-12-11] MEDS ORDERED: ATOG30TA PO (18:42)
[2024-12-11 19:15] LABS: PLATELET COUNT (AUTO) 360 K/uL (150-450); RED BLOOD CELL COUNT(AUTO) 4.43 MIL/uL (4.50-5.90); RED CELL DISTRIBUTION WIDTH 19.7 % (11.5-14.5); WHITE BLOOD COUNT (AUTO) 6.2 K/uL (4.5-11.0)
[2024-12-11 19:25] LABS: CALCIUM, TOTAL 8.4 mg/dL (8.8-10.5); CREATININE 1.07 mg/dL (0.60-1.30); GLOMERULAR FILTR. RATE CALC > 60 mL/min (>60); GLUCOSE,RANDOM 363 mg/dL (70-110); SODIUM SERUM 128 mmol/L (136-145); UREA NITROGEN, BLOOD 15 mg/dL (7-18)
[2024-12-11 19:30] LABS: ASPARTATE AMINOTRANSFERASE 22 U/L (15-37); TOTAL PROTEIN, SERUM 7.5 g/dL (6.4-8.2)
[2024-12-11 19:50] LABS: LACTIC ACID 1.7 mmol/L (0.4-2.0)
[2024-12-11] MEDS ORDERED: DEXTROSE 50%-WATER 25 GM/50 ML SYRINGE IVP PRN (22:00)
[2024-12-11] MEDS ORDERED: ONDANSETRON HCL 4 MG/2 ML VIAL IVP PRN (22:00)
[2024-12-11] MEDS ORDERED: MAGNESIUM HYDROXIDE SUSPENSION 30 ML UDCUP PO PRN (22:00)
[2024-12-11] MEDS: SODIUM CHLORIDE 0.9% 1,000 ML IV ONE (22:05)
[2024-12-11] MEDS: INSULIN REGULAR, HUMAN 100 UNITS/ML IVP ONE (22:07)
[2024-12-11] MEDS: CEFEPIME HCL 2 GM in DEXTROSE 5%-WATER 50 ML IV ONE (22:16)
[2024-12-11] MEDS: INSULIN GLARGINE,HUM.REC.ANLOG 100 UNITS/ML SQ SCH (22:21)
[2024-12-11 22:41] LABS: GLUCOMETER DEV NAME(LOC) ERT.7; GLUCOSE,POINT OF CARE 322 MG/DL (70-110)
[2024-12-11] MEDS: VANCOMYCIN 1.25 GM/WATER(PEG) 250 ML IV ONE (22:44)
[2024-12-11] MEDS: *CLINICAL-CEFEPIME DOSING CLINICAL ONE (23:15)
[2024-12-12] MEDS: HEPARIN SODIUM,PORCINE 5,000 UNITS/ML VIAL SQ SCH (00:17)
[2024-12-12] MEDS: SODIUM CHLORIDE 0.9% 1,000 ML IV ONE (00:18)
[2024-12-12 00:48] LABS: APPEARANCE,URINE CLEAR (CLEAR); GLUCOSE, URINE (UA) >=1000 mg/dL (NEGATIVE); LEUKOCYTE ESTERASE ,URINE NEGATIVE (NEGATIVE); NITRATE,URINE NEGATIVE (NEGATIVE); OCCULT BLOOD,URINE NEGATIVE (NEGATIVE); SPECIFIC GRAVITIY, URINE 1.006 (1.003-1.030)
[2024-12-12 01:02] LABS: SQUAMOUS EPITHELIAL CELL,UR Few /LPF (None Seen)
[2024-12-12 05:39] LABS: CALCIUM, TOTAL 8.4 mg/dL (8.8-10.5); CREATININE 0.92 mg/dL (0.60-1.30); GLOMERULAR FILTR. RATE CALC > 60 mL/min (>60); GLUCOSE,RANDOM 255 mg/dL (70-110); SODIUM SERUM 136 mmol/L (136-145); UREA NITROGEN, BLOOD 11 mg/dL (7-18)
[2024-12-12] MEDS: FAMOTIDINE 20 MG TABLET PO SCH (08:45)
[2024-12-12] MEDS: VANCOMYCIN 1.25 GM/WATER(PEG) 250 ML IV SCH (08:45)
[2024-12-12] MEDS: DOCUSATE SODIUM 100 MG CAPSULE PO SCH (08:45)
[2024-12-12] MEDS ORDERED: SODIUM CHLORIDE 0.9% 100 ML ONE (10:06)
[2024-12-12 10:10] VITALS: BP 158/111; PULSE 89; RESP 18; TEMP 97.3; O2SAT 97
[2024-12-12] MEDS: CEFEPIME HCL 2 GM in DEXTROSE 5%-WATER 50 ML IV SCH (11:11)
[2024-12-12 11:24] VITALS: BP 165/100; PULSE 88; RESP 18; TEMP 97.5; O2SAT 99
[2024-12-12] MEDS: INSULIN LISPRO 100 UNITS/ML SQ PRN (11:35)
[2024-12-12 12:57] VITALS: BP 162/104
[2024-12-12] MEDS: ACETAMINOPHEN 325 MG TABLET PO PRN (15:16)
[2024-12-12 16:00] VITALS: BP 147/94; PULSE 76; RESP 18; TEMP 98.7; O2SAT 97
[2024-12-12 20:00] VITALS: BP 145/92; PULSE 79; RESP 17; TEMP 97.5; O2SAT 97
[2024-12-12 23:14] VITALS: BP 146/92; PULSE 77; RESP 17; TEMP 97.7; O2SAT 97
[2024-12-13 03:32] VITALS: BP 145/95; PULSE 80; RESP 18; TEMP 97.5; O2SAT 98
[2024-12-13 06:21] LABS: CALCIUM, TOTAL 8.9 mg/dL (8.8-10.5); CREATININE 0.75 mg/dL (0.60-1.30); GLOMERULAR FILTR. RATE CALC > 60 mL/min (>60); GLUCOSE,RANDOM 246 mg/dL (70-110); SODIUM SERUM 133 mmol/L (136-145); UREA NITROGEN, BLOOD 11 mg/dL (7-18)
[2024-12-13 08:35] VITALS: BP 151/99; PULSE 91; RESP 17; TEMP 97.5; O2SAT 97
[2024-12-13 12:30] VITALS: BP 168/106; PULSE 75; RESP 17; TEMP 97.5; O2SAT 100
[2024-12-13 12:56] LABS: GLUCOMETER DEV NAME(LOC) 5N.2C; GLUCOSE,POINT OF CARE 230 MG/DL (70-110)
[2024-12-13 12:56] LABS: GLUCOMETER DEV NAME(LOC) 5N.2C; GLUCOSE,POINT OF CARE 214 MG/DL (70-110)
[2024-12-13 12:56] LABS: GLUCOMETER DEV NAME(LOC) 5N.2C; GLUCOSE,POINT OF CARE 239 MG/DL (70-110)
[2024-12-13] MEDS ORDERED: GADOTERATE MEGLUMINE 10 MMOL/20 ML VIAL IVP ONE (14:09)
[2024-12-13 15:11] LABS: GLUCOMETER DEV NAME(LOC) 5N.2C; GLUCOSE,POINT OF CARE 280 MG/DL (70-110)
[2024-12-13 16:20] VITALS: BP 146/93; PULSE 85; RESP 18; TEMP 97.7; O2SAT 99
[2024-12-13 17:26] LABS: GLUCOMETER DEV NAME(LOC) 5S.1D; GLUCOSE,POINT OF CARE 248 MG/DL (70-110)
[2024-12-13] MEDS: VANCOMYCIN 1.5 GM/WATER(PEG) 300 ML IV SCH (20:04)
[2024-12-13 20:08] VITALS: BP 121/73; PULSE 83; RESP 18; TEMP 98.1; O2SAT 97
[2024-12-13 23:26] VITALS: BP 144/95; PULSE 89; RESP 17; TEMP 97.7; O2SAT 98
[2024-12-14 04:35] VITALS: BP 144/95; PULSE 90; RESP 18; TEMP 97.7; O2SAT 99
[2024-12-14 07:19] LABS: CALCIUM, TOTAL 9.1 mg/dL (8.8-10.5); CREATININE 0.82 mg/dL (0.60-1.30); GLOMERULAR FILTR. RATE CALC > 60 mL/min (>60); GLUCOSE,RANDOM 187 mg/dL (70-110); SODIUM SERUM 134 mmol/L (136-145); UREA NITROGEN, BLOOD 14 mg/dL (7-18)
[2024-12-14 08:34] VITALS: BP 145/97; PULSE 92; RESP 18; TEMP 98.1; O2SAT 98
[2024-12-14 11:48] VITALS: BP 138/93; PULSE 89; RESP 19; TEMP 98.2; O2SAT 98
[2024-12-14 15:48] VITALS: BP 142/87; PULSE 87; RESP 18; TEMP 98.1; O2SAT 99
[2024-12-14 19:48] VITALS: BP 150/96; PULSE 81; RESP 18; TEMP 98.1; O2SAT 98
[2024-12-14 23:07] VITALS: BP 130/93; PULSE 73; RESP 18; TEMP 98.1; O2SAT 97
[2024-12-15 04:42] VITALS: BP 123/84; PULSE 84; RESP 18; TEMP 97.8; O2SAT 97
[2024-12-15 06:14] LABS: CALCIUM, TOTAL 8.9 mg/dL (8.8-10.5); CREATININE 0.80 mg/dL (0.60-1.30); GLOMERULAR FILTR. RATE CALC > 60 mL/min (>60); GLUCOSE,RANDOM 172 mg/dL (70-110); SODIUM SERUM 135 mmol/L (136-145); UREA NITROGEN, BLOOD 12 mg/dL (7-18)
[2024-12-15 08:00] VITALS: BP 124/97; PULSE 88; RESP 18; TEMP 98; O2SAT 99
[2024-12-15 09:42] LABS: GLUCOMETER DEV NAME(LOC) 5S.2D; GLUCOSE,POINT OF CARE 188 MG/DL (70-110)
[2024-12-15 09:42] LABS: GLUCOMETER DEV NAME(LOC) 5S.2D; GLUCOSE,POINT OF CARE 241 MG/DL (70-110)
[2024-12-15 09:42] LABS: GLUCOMETER DEV NAME(LOC) 5N.1D; GLUCOSE,POINT OF CARE 242 MG/DL (70-110)
[2024-12-15 09:42] LABS: GLUCOMETER DEV NAME(LOC) 5S.2D; GLUCOSE,POINT OF CARE 224 MG/DL (70-110)
[2024-12-15 09:47] LABS: GLUCOMETER DEV NAME(LOC) 5S.2D; GLUCOSE,POINT OF CARE 171 MG/DL (70-110)
[2024-12-15 09:47] LABS: GLUCOMETER DEV NAME(LOC) 5S.2D; GLUCOSE,POINT OF CARE 166 MG/DL (70-110)
[2024-12-15 10:25] LABS: GLUCOMETER DEV NAME(LOC) 4E.2; GLUCOSE,POINT OF CARE 186 MG/DL (70-110)
[2024-12-15] MEDS: GABAPENTIN 100 MG CAPSULE PO SCH (15:33)
[2024-12-15] MEDS ORDERED: GADOTERATE MEGLUMINE 10 MMOL/20 ML VIAL IVP ONE (19:14)
[2024-12-15] MEDS: VANCOMYCIN 1.25 GM/WATER(PEG) 250 ML IV SCH (21:37)
[2024-12-15 21:44] VITALS: BP 153/97; PULSE 71; RESP 20; TEMP 97.3; O2SAT 99
[2024-12-15 22:11] LABS: GLUCOMETER DEV NAME(LOC) 4E.2; GLUCOSE,POINT OF CARE 189 MG/DL (70-110)
[2024-12-16] MEDS: ZOLPIDEM TARTRATE 5 MG TABLET PO PRN (00:48)
[2024-12-16] MEDS: OxyCODONE HCL/ACETAMINOPHEN 5-325 MG TABLET PO PRN (00:48)
[2024-12-16 03:35] VITALS: BP 108/70; PULSE 80; RESP 18; TEMP 97.9; O2SAT 96
[2024-12-16 06:20] LABS: CALCIUM, TOTAL 8.8 mg/dL (8.8-10.5); CREATININE 0.76 mg/dL (0.60-1.30); GLOMERULAR FILTR. RATE CALC > 60 mL/min (>60); GLUCOSE,RANDOM 177 mg/dL (70-110); SODIUM SERUM 133 mmol/L (136-145); UREA NITROGEN, BLOOD 14 mg/dL (7-18)
[2024-12-16 07:17] LABS: GLUCOMETER DEV NAME(LOC) 6N.1C; GLUCOSE,POINT OF CARE 173 MG/DL (70-110)
[2024-12-16 08:06] LABS: GLUCOMETER DEV NAME(LOC) 6S.2; GLUCOSE,POINT OF CARE 179 MG/DL (70-110)
[2024-12-16 08:36] VITALS: BP 155/96; PULSE 77; RESP 18; TEMP 97.3; O2SAT 97
[2024-12-16 12:04] LABS: PLATELET COUNT (AUTO) 355 K/uL (150-450); RED BLOOD CELL COUNT(AUTO) 4.80 MIL/uL (4.50-5.90); RED CELL DISTRIBUTION WIDTH 19.1 % (11.5-14.5); WHITE BLOOD COUNT (AUTO) 4.6 K/uL (4.5-11.0)
[2024-12-16 13:36] LABS: GLUCOMETER DEV NAME(LOC) 6N.1C; GLUCOSE,POINT OF CARE 206 MG/DL (70-110)
== END 2024-12-16 15:40 | disposition left against medical advice (07) | DRG 383 ==
LOC: EMS 18:52 → EDH 21:45 → 5S 12-12 09:50 → 6S 12-14 22:13
PROVIDERS: ADMIT Internal Medicine; ATTEND Internal Medicine
DX: L03.116 Cellulitis of left lower limb (principal); E87.1 Hypo-osmolality and hyponatremia; E11.40 Type 2 diabetes mellitus with diabetic neuropathy, unspecified; E11.51 Type 2 diabetes mellitus with diabetic peripheral angiopathy without gangrene; I10 Essential (primary) hypertension; E11.65 Type 2 diabetes mellitus with hyperglycemia; F20.9 Schizophrenia, unspecified; E11.621 Type 2 diabetes mellitus with foot ulcer; E11.69 Type 2 diabetes mellitus with other specified complication; M86.8X7 Other osteomyelitis, ankle and foot; Z53.29 Procedure and treatment not carried out because of patient's decision for other reasons; L97.529 Non-pressure chronic ulcer of other part of left foot with unspecified severity; Z79.4 Long term (current) use of insulin; Z82.49 Family history of ischemic heart disease and other diseases of the circulatory system; Z83.3 Family history of diabetes mellitus; Z91.199 Patient's noncompliance with other medical treatment and regimen due to unspecified reason; Z89.422 Acquired absence of other left toe(s)
CPT/HCPCS: 73720; 80048; 80076; 80202; 81001; 82962; 83605; 85025; 87040; 93925; 99285; G0378; J0692; J1644; J1815; J7030; J7050; J7060

== ENCOUNTER 2024-12-25 00:59 | Emergency (ER) | payer OTHER ==
[~2024-12-25] VITALS: Ht 177.8 cm; Wt 100.0 kg
[~2024-12-25 00:59] MED LIST changes: +AMLO-257 PO; +ATOG30TA PO; -DICY20TA95 PO; +DOXY-354 PO; -DULA0.75 SQ; -FERR325T23 PO; +GABA-1216 PO; -INSU100I26 SQ; +LEVO-72 PO; -ONDA-104 PO; -PANT20TA18 PO; -SIME80TA82 PO; -TRIA15CR49 TP; -[UNRECOGNIZED DRUG - CODE] PO
[2024-12-25 01:37] VITALS: TEMP 98.4
[2024-12-25 02:23] VITALS: BP 182/80; PULSE 92; RESP 18; O2SAT 98
[2024-12-25 02:41] LABS: PLATELET COUNT (AUTO) 291 K/uL (150-450); RED BLOOD CELL COUNT(AUTO) 4.33 MIL/uL (4.50-5.90); RED CELL DISTRIBUTION WIDTH 16.9 % (11.5-14.5); WHITE BLOOD COUNT (AUTO) 4.6 K/uL (4.5-11.0)
[2024-12-25 02:59] LABS: CALCIUM, TOTAL 9.5 mg/dL (8.8-10.5); CREATININE 0.54 mg/dL (0.60-1.30); GLOMERULAR FILTR. RATE CALC > 60 mL/min (>60); GLUCOSE,RANDOM 142 mg/dL (70-110); SODIUM SERUM 130 mmol/L (136-145); UREA NITROGEN, BLOOD 13 mg/dL (7-18)
[2024-12-25 03:03] LABS: ASPARTATE AMINOTRANSFERASE 18 U/L (15-37); TOTAL PROTEIN, SERUM 7.8 g/dL (6.4-8.2)
== END 2024-12-25 06:13 | disposition home or self-care (01) ==
LOC: EMS 01:00
DX: K59.00 Constipation, unspecified (principal); R10.30 Lower abdominal pain, unspecified; I10 Essential (primary) hypertension; E11.9 Type 2 diabetes mellitus without complications; Z79.899 Other long term (current) drug therapy
CPT/HCPCS: 74176; 80053; 83690; 85025; 93005; 99284

== ENCOUNTER 2025-01-01 12:38 | Emergency (ER) | payer OTHER ==
[~2025-01-01] VITALS: Ht 177.8 cm; Wt 100.0 kg
[2025-01-01 12:48] VITALS: TEMP 97.9
[2025-01-01] MEDS: BACITRACIN 28 GM OINTMENT TP ONE (16:32)
[2025-01-01 16:52] VITALS: BP 132/76; PULSE 90; RESP 18; O2SAT 98
== END 2025-01-01 17:02 | disposition home or self-care (01) ==
LOC: EMS 12:38
DX: Z48.00 Encounter for change or removal of nonsurgical wound dressing (principal); I10 Essential (primary) hypertension; E11.9 Type 2 diabetes mellitus without complications; Z90.79 Acquired absence of other genital organ(s); Z79.899 Other long term (current) drug therapy
CPT/HCPCS: 82962; 99283

== ENCOUNTER 2025-01-03 15:45 | Emergency (ER) | payer OTHER ==
[~2025-01-03] VITALS: Ht 177.8 cm; Wt 84.1 kg
[2025-01-03 16:36] VITALS: BP 151/96; PULSE 80; RESP 18; TEMP 98.6; O2SAT 99
[2025-01-03 18:00] LABS: PLATELET COUNT (AUTO) 380 K/uL (150-450); RED BLOOD CELL COUNT(AUTO) 4.62 MIL/uL (4.50-5.90); RED CELL DISTRIBUTION WIDTH 16.2 % (11.5-14.5); WHITE BLOOD COUNT (AUTO) 5.1 K/uL (4.5-11.0)
[2025-01-03 18:10] LABS: CALCIUM, TOTAL 9.5 mg/dL (8.8-10.5); CREATININE 0.78 mg/dL (0.60-1.30); GLOMERULAR FILTR. RATE CALC > 60 mL/min (>60); GLUCOSE,RANDOM 344 mg/dL (70-110); SODIUM SERUM 135 mmol/L (136-145); UREA NITROGEN, BLOOD 10 mg/dL (7-18)
== END 2025-01-03 23:03 | disposition home or self-care (01) ==
LOC: EMS 15:46
DX: E11.621 Type 2 diabetes mellitus with foot ulcer (principal); I10 Essential (primary) hypertension; Z79.899 Other long term (current) drug therapy; Z90.79 Acquired absence of other genital organ(s); Z98.890 Other specified postprocedural states
CPT/HCPCS: 80048; 82962; 85025; 99283

== ENCOUNTER → 2025-01-13 | Emergency (ER) | payer OTHER ==
[~2025-01-13] VITALS: Ht 172.7 cm; Wt 72.7 kg
[~2025-01-13] MED LIST changes: +HYDR25TA83 PO
[2025-01-13 23:20] VITALS: BP 117/72; PULSE 76; RESP 16; TEMP 98.3; O2SAT 99
== END | disposition still patient (30) ==
LOC: EMS 19:40
DX: L29.9 Pruritus, unspecified (principal); E11.9 Type 2 diabetes mellitus without complications; I10 Essential (primary) hypertension; Z79.899 Other long term (current) drug therapy; Z90.79 Acquired absence of other genital organ(s); Z91.013 Allergy to seafood; Z91.018 Allergy to other foods
CPT/HCPCS: 99283; J8540

== ENCOUNTER 2025-02-02 15:02 | Emergency (ER) | payer OTHER ==
[~2025-02-02] VITALS: Ht 172.7 cm; Wt 73.0 kg
[2025-02-02 15:12] VITALS: BP 127/69; PULSE 104; RESP 16; TEMP 97.3; O2SAT 98
[2025-02-02] MEDS ORDERED: SODIUM CHLORIDE 0.9% 100 ML ONE (16:00)
[2025-02-02] MEDS ORDERED: 0.9% SODIUM CHLORIDE 10 ML SYRINGE IVP ONE (16:00)
[2025-02-02] MEDS ORDERED: IOHEXOL 350 MG/ML 100 ML VIAL ONE (16:00)
[2025-02-02] MEDS: MORPHINE SULFATE 2 MG/ML SYRINGE IVP ONE (16:05)
[2025-02-02] MEDS: FAMOTIDINE 20 MG/2 ML VIAL IVP ONE (16:05)
[2025-02-02] MEDS: ACETAMINOPHEN 500 MG TABLET PO ONE (16:05)
[2025-02-02 16:08] LABS: PLATELET COUNT (AUTO) 299 K/uL (150-450); RED BLOOD CELL COUNT(AUTO) 4.25 MIL/uL (4.50-5.90); RED CELL DISTRIBUTION WIDTH 15.4 % (11.5-14.5); WHITE BLOOD COUNT (AUTO) 5.5 K/uL (4.5-11.0)
[2025-02-02 16:22] LABS: CALCIUM, TOTAL 8.4 mg/dL (8.8-10.5); CREATININE 1.02 mg/dL (0.60-1.30); GLOMERULAR FILTR. RATE CALC > 60 mL/min (>60); GLUCOSE,RANDOM 120 mg/dL (70-110); SODIUM SERUM 133 mmol/L (136-145); UREA NITROGEN, BLOOD 12 mg/dL (7-18)
[2025-02-02 16:29] LABS: ASPARTATE AMINOTRANSFERASE 15 U/L (15-37); TOTAL PROTEIN, SERUM 7.3 g/dL (6.4-8.2)
[2025-02-03] MEDS ORDERED: FAMO20 PO (09:51)
== END 2025-02-02 19:06 | disposition home or self-care (01) ==
LOC: EMS 15:02
DX: R10.84 Generalized abdominal pain (principal); R11.0 Nausea; E11.9 Type 2 diabetes mellitus without complications; I10 Essential (primary) hypertension; Z98.890 Other specified postprocedural states; Z90.79 Acquired absence of other genital organ(s); Z91.013 Allergy to seafood; Z79.899 Other long term (current) drug therapy
CPT/HCPCS: 99285; 74177; 96374; 96375; 80048; 80076; 82962; 83690; 85025; 36415; Q9967; J3490; J2270; J7050

== ENCOUNTER 2025-02-03 00:14 | Emergency (ER) | payer OTHER ==
[~2025-02-03] VITALS: Ht 172.7 cm; Wt 73.0 kg
[2025-02-03 06:44] LABS: PLATELET COUNT (AUTO) 292 K/uL (150-450); RED BLOOD CELL COUNT(AUTO) 4.21 MIL/uL (4.50-5.90); RED CELL DISTRIBUTION WIDTH 15.5 % (11.5-14.5); WHITE BLOOD COUNT (AUTO) 3.7 K/uL (4.5-11.0)
[2025-02-03] MEDS: PB/HYOSCY/ATR/SCOP/LIDO/MAALOX 55 ML BOTTLE PO ONE (06:51)
[2025-02-03 06:52] LABS: CALCIUM, TOTAL 8.1 mg/dL (8.8-10.5); CREATININE 0.82 mg/dL (0.60-1.30); GLOMERULAR FILTR. RATE CALC > 60 mL/min (>60); GLUCOSE,RANDOM 125 mg/dL (70-110); SODIUM SERUM 135 mmol/L (136-145); UREA NITROGEN, BLOOD 9 mg/dL (7-18)
[2025-02-03 06:59] LABS: ASPARTATE AMINOTRANSFERASE 20.0 U/L (15-37); TOTAL PROTEIN, SERUM 7.4 g/dL (6.4-8.2)
[2025-02-03 07:11] LABS: TROPONIN I-HIGH SENSITIVITY 5 ng/L (<76)
[2025-02-03 09:48] VITALS: BP 147/85; PULSE 91; RESP 16; TEMP 97.9; O2SAT 97
[2025-02-03] MEDS ORDERED: FAMO20 PO (09:51)
== END 2025-02-03 09:55 | disposition home or self-care (01) ==
LOC: EMS 00:16
DX: K21.9 Gastro-esophageal reflux disease without esophagitis (principal); R10.13 Epigastric pain; R07.89 Other chest pain; F41.9 Anxiety disorder, unspecified; E11.9 Type 2 diabetes mellitus without complications; I10 Essential (primary) hypertension; Z91.013 Allergy to seafood; Z90.79 Acquired absence of other genital organ(s); Z87.19 Personal history of other diseases of the digestive system; Z98.890 Other specified postprocedural states; Z79.899 Other long term (current) drug therapy
CPT/HCPCS: 71045; 80048; 80076; 83690; 84484; 85025; 93005; 99285; 36415-L1; 36415-TC

== ENCOUNTER 2025-02-25 15:27 | Emergency (ER) | payer OTHER ==
[~2025-02-25] VITALS: Ht 177.8 cm; Wt 84.1 kg
[~2025-02-25 15:27] MED LIST changes: +FAMO20 PO
[2025-02-25 15:37] VITALS: BP 127/84; PULSE 90; RESP 18; TEMP 98.2; O2SAT 99
[2025-02-25 16:30] LABS: PLATELET COUNT (AUTO) 366 K/uL (150-450); RED BLOOD CELL COUNT(AUTO) 4.03 MIL/uL (4.50-5.90); RED CELL DISTRIBUTION WIDTH 15.3 % (11.5-14.5); WHITE BLOOD COUNT (AUTO) 4.1 K/uL (4.5-11.0)
[2025-02-25 17:25] LABS: CALCIUM, TOTAL 9.0 mg/dL (8.8-10.5); CREATININE 0.89 mg/dL (0.60-1.30); GLOMERULAR FILTR. RATE CALC > 60 mL/min (>60); GLUCOSE,RANDOM 283 mg/dL (70-110); SODIUM SERUM 134 mmol/L (136-145); UREA NITROGEN, BLOOD 9 mg/dL (7-18)
[2025-02-25] MEDS: ACETAMINOPHEN 500 MG TABLET PO ONE (18:47)
[2025-02-25] MEDS: ONDANSETRON 4 MG TABLET PO ONE (18:48)
[2025-02-25] MEDS: PB/HYOSCY/ATR/SCOP/LIDO/MAALOX 55 ML BOTTLE PO ONE (18:48)
[2025-02-25] MEDS: OMEPRAZOLE 20 MG CAPSULE PO ONE (18:48)
[2025-02-25] MEDS ORDERED: GABA-1181 PO (19:14)
[2025-02-25] MEDS ORDERED: OMEP-148 PO (19:14)
[2025-02-25] MEDS ORDERED: HYDR50CA7 PO (19:14)
== END 2025-02-25 19:28 | disposition home or self-care (01) ==
LOC: EMS 15:28
DX: K52.9 Noninfective gastroenteritis and colitis, unspecified (principal); E11.9 Type 2 diabetes mellitus without complications; I10 Essential (primary) hypertension; Z90.79 Acquired absence of other genital organ(s); Z79.899 Other long term (current) drug therapy; Z91.013 Allergy to seafood; Z98.890 Other specified postprocedural states
CPT/HCPCS: 99284; 80048; 85025; 36415; Q0162

== ENCOUNTER 2025-02-26 11:18 | Emergency (ER) | payer OTHER ==
[~2025-02-26] VITALS: Ht 177.8 cm; Wt 84.0 kg
[~2025-02-26 11:18] MED LIST changes: +GABA-1181 PO; +HYDR50CA7 PO; +OMEP-148 PO
[2025-02-26] MEDS: FAMOTIDINE 20 MG TABLET PO ONE (13:19)
[2025-02-26] MEDS: ACETAMINOPHEN 500 MG TABLET PO ONE (13:19)
[2025-02-26] MEDS: ONDANSETRON 4 MG TABLET PO ONE (13:20)
[2025-02-26 13:27] VITALS: BP 122/74; PULSE 73; RESP 16; TEMP 98.2; O2SAT 99
== END 2025-02-26 13:34 | disposition home or self-care (01) ==
LOC: EMS 11:22
DX: R19.7 Diarrhea, unspecified (principal); E11.9 Type 2 diabetes mellitus without complications; I10 Essential (primary) hypertension; Z98.890 Other specified postprocedural states; Z90.79 Acquired absence of other genital organ(s); Z91.013 Allergy to seafood; Z79.899 Other long term (current) drug therapy
CPT/HCPCS: 99284; 82962; Q0162